=== PATIENT | male | born 1950 | race Caucasian/White ===

== ENCOUNTER → 2017-05-29 | Outpatient (CLI) | payer BC ==
--- NOTE | 2017-05-29 12:00 | P.STRESS ---
- Stress Test Note Stress Test Results/Findings: Exam Performed: NM stress cardiolite complete Exam Date: 05/29/17 Height: 5 ft 9 in Weight: 86.183 kg Protocol: KASIA Stage: 111 Duration of Exercise: 9.46 Resting Heart Rate: 58 Resting Blood Pressure: 167/102 Maximum Achieved Heart Rate: 142 Maximum Achieved Blood Pressure: 217/73 85% PMHR: 92 100% PMHR: 154 METS: 11.3 Technologist Comment: Stress Test Results/Findings: Baseline EKG, occasional PVCs with early repolarization changes. Patient exercised on Kasia protocol for 9 minutes 46 seconds, best was terminated secondary to fatigue, there was no chest pain. EKG monitoring revealed occasional PVCs there was no evidence of diagnostic ST segment changes. Cardiolite was injected at peak exercise. Impression: 1. Average exercise tolerance with occasional PVCs and normal EKG response to exercise. 2. Nuclear images will be reported separately.
--- NOTE | 2017-05-29 12:12 | NM ---
EXAMINATION TYPE: NM stress cardiolite complete DATE OF EXAM: 05/29/2017 COMPARISON: NONE HISTORY: I 20.9, angina pectoris TECHNIQUE: After the intravenous administration of 10.0 mCi Tc 99m Sestamibi - Rest images obtained 45 minutes post injection. The patient exercised using a KASIA protocol and 1 minute prior to peak exercise was injected with 26.7 mCi Tc 99m Sestamibi - Stress images obtained 15 minutes post injecti on. FINDINGS: Targeted heart rate was achieved during performance of the study. Review of stress and rest SPECT tony ges demonstrates no distinct perfusion abnormality. Gated analysis shows normal wall motion with an estimated left ventricular ejection fraction of 59 %. Some decreased uptake along the inferolateral left ventricle is greater on rest images than on stress images towards the base of the heart IMPRESSION: No scintigraphic evidence for reversible ischemia, additional findings above may be technical
== END ==
LOC: RADNMMAIN 07:48
PROVIDERS: ATTEND Family Medicine
DX: I20.9 Angina pectoris, unspecified (principal)
CPT/HCPCS: 93017; 78452; A9500

== ENCOUNTER → 2019-02-20 | Outpatient (CLI) | payer BC ==
--- NOTE | 2019-02-20 10:04 | XR ---
Abdomen HISTORY: Left-sided kidney stones, hematuria, calculus of kidney Frontal view the abdomen on 2 images correlated prior exam 09/30/2018. Multiple calcifications are noted in the paraspinal location on the left at approximately the L4-5 le ned which measure approximately 1 cm distally, 5 mm, and 7 mm proximally. Question calcification at t he level of the paraspinal level at approximately L2-3 level measuring approximately 16 to 17 mm. The re is overlying bowel gas which obscures detail. Suspect there is a calcific lesion overlying the low er pole the right kidney measuring 1 cm with a small adjacent calcification measuring approximately 3 mm.. Multiple calcifications are present in the pelvis similar to prior exam however there may be di stal ureteral calcifications, multiple calcifications are present along the expected course of the ur eter, oval calcification distally measures approximately 1 cm by 3 to 4 mm. 2 round calcifications ar e present in each measuring approximately 6 and 5 mm somewhat more proximally in the pelvis. Question able calcification superimposed over the left sacral ala. There are likely phleboliths within the pel vis. IMPRESSION: Bilateral nephrolithiasis suspected with left-sided multiple ureteral calcifications.
== END | disposition home or self-care (01) ==
LOC: RADXRMAIN 09:35
PROVIDERS: ATTEND Urology
DX: N20.0 Calculus of kidney (principal)
CPT/HCPCS: 74018

== ENCOUNTER → 2019-02-27 | Outpatient (CLI) | payer BC ==
[2019-02-27 14:30] LABS: Basophils # (A) 0.1 k/uL (0-0.2); Basophils % (A) 1 %; Eosinophils # (A) 0.2 k/uL (0-0.7); Eosinophils % (A) 4 %; HCT 46.3 % (39.0-53.0); HGB 14.9 gm/dL (13.0-17.5); Lymphocytes # (A) 1.5 k/uL (1.0-4.8); Lymphocytes % (A) 27 %; MCH 28.4 pg (25.0-35.0); MCHC 32.1 g/dL (31.0-37.0); MCV 88.6 fL (80.0-100.0); Mean Platelet Volume 8.9; Monocytes # (A) 0.4 k/uL (0-1.0); Monocytes % (A) 7 %; Neutrophils # (A) 3.2 k/uL (1.3-7.7); Neutrophils % (A) 58 %; Platelet Count 189 k/uL (150-450); RBC 5.23 m/uL (4.30-5.90); RDW 13.3 % (11.5-15.5); WBC 5.5 k/uL (3.8-10.6)
[2019-02-27 14:40] LABS: Anion Gap 6 mmol/L; Blood Urea Nitrogen 16 mg/dL (9-20); Calcium 9.2 mg/dL (8.4-10.2); Carbon Dioxide 30 mmol/L (22-30); Chloride 105 mmol/L (98-107); Glucose 108 mg/dL (74-99); Potassium 4.3 mmol/L (3.5-5.1); Sodium 141 mmol/L (137-145)
== END | disposition home or self-care (01) ==
LOC: LABPAT 13:07
PROVIDERS: ATTEND Urology
DX: Z01.818 Encounter for other preprocedural examination (principal); Z01.812 Encounter for preprocedural laboratory examination; N20.1 Calculus of ureter; R53.83 Other fatigue
CPT/HCPCS: 36415; 80048; 85025; 93005

== ENCOUNTER 2019-03-07 06:02 | Day surgery (SDC) | payer BC ==
[2019-03-06 08:40] VITALS: BMI 26.6
--- NOTE | 2019-03-06 12:39 | P.GSHP ---
History of Present Illness H&P Date: 02/28/19 Chief Complaint: Left flank pain The patient is a 68-year-old white male with a history of urolithiasis. He has recently experienced left flank and lower abdominal pain, associated with gross hematuria. A KUB x-ray suggests the presence of several left ureteral calculi. Specifically, there appears to be a 1 cm distal ureteral calculus, as well as 5 and 7 mm calculi within the proximal ureter. A questionable calcification is also seen at the level of L2-L3, measuring approximately 16 mm in size. - Constitutional Constitutional: Denies chills, Denies fever - Gastrointestinal Gastrointestinal: Denies nausea, Denies vomiting - Genitourinary (Female) Genitourinary: Reports flank pain, Reports hematuria, Reports kidney stones Past Medical History Additional Past Medical History / Comment(s): kidney stones History of Any Multi-Drug Resistant Organisms: None Reported Past Surgical History: Hernia Repair, Orthopedic Surgery Past Psychological History: No Psychological Hx Reported Smoking Status: Former smoker Past Alcohol Use History: Rare Past Drug Use History: None Reported Medications and Allergies Home Medications Medication Instructions Recorded Confirmed Type No Known Home Medications 03/06/19 03/06/19 History Allergies Allergy/AdvReac Type Severity Reaction Status Date / Time latex Allergy Rash/Hives Verified 03/06/19 08:16 meperidine [From Demerol] Allergy Nausea & Verified 03/06/19 08:16 Vomiting Surgical - Exam - General well developed, well nourished, no distress - Neck no masses, trachea midline - Respiratory normal respiratory effort, clear to auscultation - Cardiovascular Rhythm: regular Abnormal Heart Sounds: no systolic murmur, no diastolic murmur, no rub, no S3 Gallop, no S4 Gallop, no click, no other - Abdomen Abdomen: soft, non tender, no guarding, no rigid, no rebound - Genitourinary normal penis with no external lesions, testicles non-tender - Rectum Rectum: normal sphincter tone, no masses - Psychiatric oriented to time, oriented to person, oriented to place, speech is normal, memory intact Results - Imaging Abdominal x-ray: report reviewed, image reviewed Assessment and Plan (1) Calculus of ureter Status: Acute Code(s): N20.1 - CALCULUS OF URETER SNOMED Code(s): 35710792 Plan: Cystoscopy, left retrograde pyelogram, left ureteroscopy with Holmium laser lithotripsy and possible stone basketing. The procedure has been reviewed in detail with the patient. Potential risks include anesthesia, bleeding, infection, and ureteral injury. The patient is aware of the need for a ureteral stent following the procedure. He also understands the possible need for a secondary treatment.
[~2019-03-07 06:02] MED LIST: DEXAMETHASONE SOD PHOSPHATE 10 MG/ML 1 ML VIAL IV ONE; HYDROmorphone 0.5 MG/0.5 ML SYRINGE IVP PRN; LACTATED RINGERS 1,000 ML IV SCH; MIDAZOLAM 2 MG/2 ML VIAL IV PRN; ONDANSETRON 4 MG/2 ML VIAL IVP ONE; SCOPOLAMINE 1.5MG/72HR PATCH TRANSDERM ONE
--- NOTE | 2019-03-07 06:54 | XR ---
EXAMINATION TYPE: XR KUB DATE OF EXAM: 03/07/2019 6:47 AM CLINICAL HISTORY: Right-sided kidney stone. TECHNIQUE: Single supine KUB image of the abdomen is obtained. COMPARISON: Abdominal x-ray February 20, 2019. FINDINGS: There is persistent 10 mm calculus right kidney at L2 level. Previously visualized left mid ureter calculi have progressed distally now project over the sacrum.. Rounded density over the sacru m is stable in position medial to the ureter calculi. There are additional scattered pelvic phlebolit hs bilaterally inferior to this redemonstrated. Overall nonobstructive bowel gas pattern. Mild to moderate narrowing of both hip joints is redemonstr ated. IMPRESSION: Progression of mid left ureter calculi to distal ureter level. Stable 10 mm right renal c alculus.
[2019-03-07] MEDS ORDERED: MIDAZOLAM 2 MG/2 ML VIAL ONE (07:24)
[2019-03-07] MEDS ORDERED: GLYCOPYRROLATE 0.2 MG/ML 2 ML VIAL ONE (07:24)
[2019-03-07] MEDS ORDERED: ROCURONIUM BROMIDE 10 MG/ML 10 ML VIAL IV ONE (07:24)
[2019-03-07] MEDS ORDERED: ePHEDrine SULFATE/0.9% NACL/PF 50 MG/5 ML SYRINGE IV ONE (07:24)
[2019-03-07] MEDS ORDERED: LIDOCAINE 1% INJ 10MG/ML (20 ML MDV) ONE (07:24)
[2019-03-07] MEDS ORDERED: NEOSTIGMINE 1 MG/ML 10 ML VIAL ONE (07:24)
[2019-03-07] MEDS ORDERED: HYDROmorphone (PF) 1 MG/ML ONE (07:24)
[2019-03-07] MEDS ORDERED: fentaNYL (PF) 50 MCG/ML 2 ML AMP ONE (07:24)
[2019-03-07] MEDS ORDERED: PROPOFOL 10 MG/ML 20 ML VIAL IV ONE (07:24)
[2019-03-07] MEDS ORDERED: IOPAMIDOL-370 50ML BTL MISCELLANE ONE (08:07)
[2019-03-07] MEDS ORDERED: LACTATED RINGERS 1,000 ML IV ONE (08:11)
[2019-03-07 09:55] VITALS: TEMP 97.7
--- NOTE | 2019-03-07 10:02 | P.OP ---
Date of Procedure: 03/07/19 Preoperative Diagnosis: Left ureteral calculi Postoperative Diagnosis: Same Procedure(s) Performed: Cystoscopy, left ureteroscopy with Holmium laser lithotripsy, left ureteral stent insertion Anesthesia: AMYA Surgeon: Froilan Noland Estimated Blood Loss (ml): 0 IV fluids (ml): 850 Pathology: none sent Condition: stable Disposition: PACU Indications for Procedure: The patient is a 68-year-old white male with a history of urolithiasis. He has recently experienced left flank and lower abdominal pain, associated with gross hematuria. A KUB x-ray suggests the presence of several left ureteral calculi. Specifically, there appears to be a 1 cm distal ureteral calculus, as well as 5 and 7 mm calculi within the proximal ureter. A questionable calcification is also seen at the level of L2-L3, measuring approximately 16 mm in size. Operative Findings: Multiple large left ureteral calculi, all fragmented to completion. Description of Procedure: The patient was taken to the operating room and placed in the dorsolithotomy position, with legs supported in Stuart stirrups. The external genitalia was prepped and draped sterilely. The 30 lens was used to introduce the 22-L[place]ian Stortz cystoscopic sheath through the urethra and into the bladder under direct vision. The prostatic urethra showed evidence of mild lateral lobe enlargement, as well as a median lobe which partially obscures the trigone. The bladder was examined in its entirety. Both ureteral orifices were normal anatomic location and configuration, and clear urine effluxed from both. No tumors or foreign bodies were seen. The ACMI semirigid ureteroscope was advanced into the bladder, and the left ureteral orifice was cannulated. The ureteroscope was advanced approximately 2 cm, at which point a large calculus was identified. The 200 micron Holmium laser probe was passed through the ureteroscope, and lithotripsy was performed. The ureteroscope was slowly advanced, treating 3-4 large calculi within the mid and distal ureter utilizing a dusting technique. At this point, visualization was poor and therefore the procedure was terminated. A 0.035 inch Glidewire was passed through the ureteroscope and up to the left renal pelvis. A 26 cm, 4.5-Lithuanian double-J ureteral stent was placed over the wire. Proper stent positioning was verified fluoroscopically and endoscopically. The bladder was emptied and the cystoscope removed. The patient tolerated the procedure well and was taken to the recovery room in stable condition. CHRISTIAN ROCKJoleen Report: Procedure Acuity: Elective Stone Size and Location: Left mid and distal ureter, up to 1 cm. Ureteral Dilation: No Ureteral Access Sheath Used: No Stone Sent for Analysis: No All Stones/Fragments Were Removed with a Basket: No Complications: No Preoperative Antibiotics Given: Yes Stent Placed: Yes If Stent Placed, Was String Left Attached: No If Stent Placed, When is it to be Removed: 2 weeks Discharge Medications: [place]
[2019-03-07 10:18] VITALS: RESP 16
--- NOTE | 2019-03-07 11:12 | FL ---
EXAMINATION TYPE: FL guidance operating room DATE OF EXAM: 03/07/2019 HISTORY: Flouroscopy time 15 seconds of fluoroscopy provided. IMPRESSION: 1. Fluoroscopy time.
[2019-03-07 11:13] VITALS: BP 152/84; PULSE 77
== END 2019-03-07 11:35 | disposition home or self-care (01) ==
LOC: OR 06:02
PROVIDERS: ATTEND Urology
DX: N20.1 Calculus of ureter (principal); N40.0 Benign prostatic hyperplasia without lower urinary tract symptoms; Z87.442 Personal history of urinary calculi; Z87.891 Personal history of nicotine dependence; Z88.5 Allergy status to narcotic agent; Z91.040 Latex allergy status
CPT/HCPCS: 74018; 52356; C2625; C1769; J2250; J1100; J2710; J2405; J0690; J2001; J3010; J1170; J2704

== ENCOUNTER → 2019-05-27 | Outpatient (CLI) | payer BC ==
--- NOTE | 2019-05-27 11:57 | US ---
EXAMINATION TYPE: US kidneys/renal and bladder DATE OF EXAM: 05/27/2019 COMPARISON: None CLINICAL HISTORY: 69-year-old male R93.4 abnormal findings on diagnostic imaging of. Expense Analyst notes: Patient has hx of stones, lithotripsy in February on left. TECHNIQUE: Multiple sonographic images of the kidneys and bladder are obtained. FINDINGS: EXAM MEASUREMENTS: Right Kidney: 13.1 x 5.4 x 5.2 cm Left Kidney: 13.2 x 6.7 x 6.4 cm Right Kidney: Prominent in size without hydronephrosis. A mid to lower pole calculus is noted measuri ng 0.6 x 0.3 x 0.8 Left Kidney: Prominent size with cysts measuring up to 4.9 x 3.5 x 4.8 cm. There is at least moderate hydronephrosis. Bladder: wnl Bilateral Jets seen: Right seen, left not seen in 3 minutes Enlargement of the median lobe of the prostate gland impressing on the posterior bladder base. IMPRESSION: 1. Moderate left hydronephrosis. The left ureteral jet is not visualized. Unable to exclude ureteric obstruction. 2. Nonobstructive 8 mm right renal calculus. 3. Enlargement of the median lobe of the prostate gland with impression on the bladder base. Query an y signs/symptoms of BPH.
== END | disposition home or self-care (01) ==
LOC: RADUSWWP 06:52
PROVIDERS: ATTEND Urology
DX: N13.2 Hydronephrosis with renal and ureteral calculous obstruction (principal); N40.0 Benign prostatic hyperplasia without lower urinary tract symptoms
CPT/HCPCS: 76770

== ENCOUNTER 2019-10-14 14:57 | Inpatient (IN) | payer BC, MEDICARE ==
[2019-10-14] MEDS ORDERED: HYDROmorphone 1 MG/ML 1 ML SYRINGE IVP STA (15:21)
[2019-10-14] MEDS ORDERED: KETOROLAC 30 MG/ML 1 ML VIAL IVP STA (15:21)
[2019-10-14] MEDS ORDERED: SODIUM CHLORIDE 0.9% 1,000 ML IV STA ×2 (15:21)
[2019-10-14] MEDS ORDERED: ONDANSETRON 4 MG/2 ML VIAL IVP STA (15:21)
--- NOTE | 2019-10-14 15:48 | ED ---
Abdominal Pain HPI - General Source: patient, EMS, RN notes reviewed, old records reviewed Mode of arrival: EMS Limitations: no limitations <Barbara Roth - Last Filed: 10/14/19 17:39> <Mary Grace Arana - Last Filed: 10/19/19 14:36> - General Chief Complaint: Abdominal Pain Stated Complaint: kidney stone Time Seen by Provider: 10/14/19 15:12 - History of Present Illness Initial Comments: Patient is a 69-year-old male presents today with right sided flank pain, possibly an hour after he had his ureteral stent removed. He has removed by Dr. Stevens. Patient reports that he had the ureteral stent placed last Monday. He reports that after having a stent placed she did have some dysuria throughout that time. He's never had dysuria post stent placement before. He is reports he's had the stents placed on the left ureter the past. Patient states he's had no fevers or chills. He arrives via EMS with significant amount distress and discomfort. He complains of some nausea. (Barbara Roth) - Related Data Previous Rx's Medication Instructions Recorded Hydrocodone/Acetaminophen [[place] 1 - 2 each PO Q4HR PRN #6 tab 10/16/19 5-325] Allergies Allergy/AdvReac Type Severity Reaction Status Date / Time hydrocodone Allergy Nausea & Verified 10/16/19 13:11 Vomiting latex Allergy Rash/Hives Verified 10/16/19 13:11 meperidine [From Demerol] Allergy Nausea & Verified 10/16/19 13:11 Vomiting Review of Systems ROS Other: All systems not noted in ROS Statement are negative. <Barbara Roth - Last Filed: 10/14/19 17:39> ROS Other: All systems not noted in ROS Statement are negative. <Mary Grace Arana - Last Filed: 10/19/19 14:36> ROS Statement: Those systems with pertinent positive or pertinent negative responses have been documented in the HPI. Past Medical History Past Medical History: No Reported History Additional Past Medical History / Comment(s): kidney stones History of Any Multi-Drug Resistant Organisms: None Reported Past Surgical History: Hernia Repair, Orthopedic Surgery Additional Past Surgical History / Comment(s): kidney stones. Past Psychological History: No Psychological Hx Reported Smoking Status: Former smoker Past Alcohol Use History: Rare Past Drug Use History: None Reported <Barbara Roth - Last Filed: 10/14/19 17:39> General Exam Limitations: no limitations General appearance: alert, in no apparent distress Head exam: Present: atraumatic Eye exam: Present: normal appearance, PERRL, EOMI. Absent: scleral icterus, conjunctival injection, periorbital swelling ENT exam: Present: normal exam, mucous membranes moist Neck exam: Present: normal inspection. Absent: tenderness, meningismus, lymp hadenopathy Respiratory exam: Present: normal lung sounds bilaterally. Absent: respiratory distress, wheezes, rales, rhonchi, stridor Cardiovascular Exam: Present: regular rate, normal rhythm, normal heart sounds. Absent: systolic murmur, diastolic murmur, rubs, gallop, clicks GI/Abdominal exam: Present: soft, tenderness (Right-sided lower abdominal tenderness and right CVA tenderness.), normal bowel sounds. Absent: distended, guarding, rebound, rigid Extremities exam: Present: normal inspection, full ROM, normal capillary refill. Absent: tenderness, pedal edema, joint swelling, calf tenderness Back exam: Present: normal inspection Neurological exam: Present: alert, oriented X3, CN II-XII intact Psychiatric exam: Present: normal affect, normal mood Skin exam: Present: warm, dry, intact, normal color. Absent: rash <Barbara Roth - Last Filed: 10/14/19 17:39> - General Exam Comments Initial Comments: 61-year-old male. Alert and oriented 3. Moderate to severe discomfort, writhing in pain. (Barbara Roth) Course Vital Signs 10/14/19 10/14/19 10/14/19 15:03 16:15 17:30 Temperature 98.1 F Pulse Rate 72 74 62 Respiratory 22 18 18 Rate Blood Pressure 209/137 137/87 140/77 O2 Sat by Pulse 99 96 96 Oximetry Medical Decision Making - Lab Data Result diagrams: 10/14/19 15:40 10/14/19 15:40 - Radiology Data Radiology results: report reviewed <RosemarysamiBarbara - Last Filed: 10/14/19 17:39> - Lab Data Result diagrams: 10/14/19 15:40 10/15/19 11:16 <Mary Grace Arana - Last Filed: 10/19/19 14:36> - Medical Decision Making 69-year-old male presents today with right-sided abdominal pain one hour after having right ureteral stent removed by Dr. Stevens. He arrives via EMS in significant amount of discomfort. Patient is given IV fluids labwork obtained. He was given IV Toradol's Zofran and Dilaudid. On reevaluation his pain is significantly improved. Lab work was reviewed. Evidence of lactic acid elevation of 3.0. Urinalysis completed and shows rare bacteria as well as significant red blood cells. CT abdomen and pelvis was performed. There is evidence of moderate to severe right-sided hydronephrosis with concerns for all total 2-3 millimeter ureteral stones on right ureter. There is concerns or perinephric stranding related to infection. Patient was given 2 g of Rocephin at this time. I discussed the case with Dr. Castañeda discussed the case with Dr. Stevens. Recommended the Patient be given Flomax, remaining nothing by mouth and receiving IV antibiotic. Patient and patient's family are agreeable to treatment plan. (Barbara Roth) I was available for consultation in the emergency department. The history and physical exam were done by the midlevel provider. I was consulted for this patients care. I reviewed the case with the midlevel provider and based on their presentation of the patient, I agree with the assessment, medical decision making and plan of care as documented. I discussed the case with Dr. Noland who accepted admission of the patient. Chart was dictated using [employer] dictation software. Attempts were made to correct any dictation errors however some typographical errors may persist. (Mary Grace Arana) - Lab Data Lab Results 10/14/19 10/14/19 10/14/19 Range/Units 15:40 15:40 15:40 WBC 9.4 (3.8-10.6) k/uL RBC 5.33 (4.30-5.90) m/uL Hgb 15.7 (13.0-17.5) gm/dL Hct 46.4 (39.0-53.0) % MCV 87.1 (80.0-100.0) fL MCH 29.5 (25.0-35.0) pg MCHC 33.9 (31.0-37.0) g/dL RDW 12.7 (11.5-15.5) % Plt Count 232 (150-450) k/uL Neutrophils % 78 % Lymphocytes % 13 % Monocytes % 5 % Eosinophils % 2 % Basophils % 1 % Neutrophils # 7.3 (1.3-7.7) k/uL Lymphocytes # 1.2 (1.0-4.8) k/uL Monocytes # 0.5 (0-1.0) k/uL Eosinophils # 0.1 (0-0.7) k/uL Basophils # 0.1 (0-0.2) k/uL Sodium 140 (137-145) mmol/L Potassium 4.0 (3.5-5.1) mmol/L Chloride 107 (98-107) mmol/L Carbon Dioxide 19 L (22-30) mmol/L Anion Gap 14 mmol/L BUN 18 (9-20) mg/dL Creatinine 1.40 H (0.66-1.25) mg/dL Est GFR (CKD-EPI)AfAm 60 (>60 ml/min/1.73 sqM) Est GFR (CKD-EPI)NonAf 51 (>60 ml/min/1.73 sqM) Glucose 99 (74-99) mg/dL Lactic Ac Sepsis Rflx Plasma Lactic Acid Vipul 3.0 H* (0.7-2.0) mmol/L Calcium 9.1 (8.4-10.2) mg/dL Total Bilirubin 1.1 (0.2-1.3) mg/dL AST 24 (17-59) U/L ALT 24 (21-72) U/L Alkaline Phosphatase 99 (38-126) U/L Total Protein 7.1 (6.3-8.2) g/dL Albumin 4.2 (3.5-5.0) g/dL Amylase 66 (30-110) U/L Lipase 196 (23-300) U/L Urine Color Urine Appearance (Clear) Urine pH (5.0-8.0) Ur Specific [place] (1.001-1.035) Urine Protein (Negative) Urine Glucose (UA) (Negative) Urine Ketones (Negative) Urine Blood (Negative) Urine Nitrite (Negative) Urine Bilirubin (Negative) Urine Urobilinogen (<2.0) mg/dL Ur Leukocyte Esterase (Negative) Urine RBC (0-5) /hpf Urine WBC (0-5) /hpf Ur Squamous Epith Cells (0-4) /hpf Urine Bacteria (None) /hpf Urine Mucus (None) /hpf 10/14/19 10/14/19 Range/Units 16:07 16:42 WBC (3.8-10.6) k/uL RBC (4.30-5.90) m/uL Hgb (13.0-17.5) gm/dL Hct (39.0-53.0) % MCV (80.0-100.0) fL MCH (25.0-35.0) pg MCHC (31.0-37.0) g/dL RDW (11.5-15.5) % Plt Count (150-450) k/uL Neutrophils % % Lymphocytes % % Monocytes % % Eosinophils % % Basophils % % Neutrophils # (1.3-7.7) k/uL Lymphocytes # (1.0-4.8) k/uL Monocytes # (0-1.0) k/uL Eosinophils # (0-0.7) k/uL Basophils # (0-0.2) k/uL Sodium (137-145) mmol/L Potassium (3.5-5.1) mmol/L Chloride (98-107) mmol/L Carbon Dioxide (22-30) mmol/L Anion Gap mmol/L BUN (9-20) mg/dL Creatinine (0.66-1.25) mg/dL Est GFR (CKD-EPI)AfAm (>60 ml/min/1.73 sqM) Est GFR (CKD-EPI)NonAf (>60 ml/min/1.73 sqM) Glucose (74-99) mg/dL Lactic Ac Sepsis Rflx Y Plasma Lactic Acid Vipul (0.7-2.0) mmol/L Calcium (8.4-10.2) mg/dL Total Bilirubin (0.2-1.3) mg/dL AST (17-59) U/L ALT (21-72) U/L Alkaline Phosphatase (38-126) U/L Total Protein (6.3-8.2) g/dL Albumin (3.5-5.0) g/dL Amylase (30-110) U/L Lipase (23-300) U/L Urine Color Red Urine Appearance Cloudy (Clear) Urine pH 6.0 (5.0-8.0) Ur Specific [place] 1.011 (1.001-1.035) Urine Protein 2+ H (Negative) Urine Glucose (UA) Negative (Negative) Urine Ketones 1+ H (Negative) Urine Blood Large H (Negative) Urine Nitrite Negative (Negative) Urine Bilirubin Negative (Negative) Urine Urobilinogen <2.0 (<2.0) mg/dL Ur Leukocyte Esterase Small H (Negative) Urine RBC >182 H (0-5) /hpf Urine WBC 29 H (0-5) /hpf Ur Squamous Epith Cells <1 (0-4) /hpf Urine Bacteria Rare H (None) /hpf Urine Mucus Rare H (None) /hpf - Radiology Data KUB shows right renal calculus. Distal left ureter colliculi no longer seen. Persistent distention of bowel the left upper quadrant. CT shows bilateral hydronephrosis moderate to severe. On the right there is perinephric fluid or stranding on the renal edema. Underlying infection is not excluded. Several right ureteral colliculi noted. Left-sided hydronephrosis appears to be chronic in nature as there is renal parenchymal thinning. One or 22 mm colliculi noted in the mid left ureter. (Barbara Roth) Disposition Is patient prescribed a controlled substance at d/c from ED?: No Time of Disposition: 17:43 <Barbara Roth - Last Filed: 10/14/19 17:39> <Mary Grace Arana - Last Filed: 10/19/19 14:36> Clinical Impression: Hydronephrosis, Right ureteral stone, Post op infection Disposition: ADMITTED IP TO THIS HOSP Condition: Fair
[2019-10-14 15:58] LABS: Basophils # (A) 0.1 k/uL (0-0.2); Basophils % (A) 1 %; Eosinophils # (A) 0.1 k/uL (0-0.7); Eosinophils % (A) 2 %; HCT 46.4 % (39.0-53.0); HGB 15.7 gm/dL (13.0-17.5); Lymphocytes # (A) 1.2 k/uL (1.0-4.8); Lymphocytes % (A) 13 %; MCH 29.5 pg (25.0-35.0); MCHC 33.9 g/dL (31.0-37.0); MCV 87.1 fL (80.0-100.0); Mean Platelet Volume 9.3; Monocytes # (A) 0.5 k/uL (0-1.0); Monocytes % (A) 5 %; Neutrophils # (A) 7.3 k/uL (1.3-7.7); Neutrophils % (A) 78 %; Platelet Count 232 k/uL (150-450); RBC 5.33 m/uL (4.30-5.90); RDW 12.7 % (11.5-15.5); WBC 9.4 k/uL (3.8-10.6)
--- NOTE | 2019-10-14 16:02 | XR ---
KUB HISTORY: Right flank pain Frontal KUB and 2 images correlated to prior exam dated 03/07/2019 The right-sided renal calculus seen on prior exam is no longer seen. Multiple calcifications in the p keri are felt likely to represent phleboliths. Distal left ureteral calculi seen on prior KUB. No lo nger seen. Lung bases are clear. No evident pneumoperitoneum, distended loop of small bowel in left u pper quadrant is again noted. IMPRESSION: Right renal calculus, distal left ureteral calculi no longer seen. Persistent distention of bowel left upper quadrant.
[2019-10-14 16:04] LABS: Albumin 4.2 g/dL (3.5-5.0); Calcium 9.1 mg/dL (8.4-10.2); Total Bilirubin 1.1 mg/dL (0.2-1.3); Total Protein 7.1 g/dL (6.3-8.2)
--- NOTE | 2019-10-14 16:23 | CT ---
EXAMINATION TYPE: CT abdomen pelvis wo con DATE OF EXAM: 10/14/2019 COMPARISON: 10/07/2013 HISTORY: right flank pain post ureteral stent removal CT DLP: 588.3 mGycm Examination of the solid and hollow viscera is limited given the lack of contrast. FINDINGS: LUNG BASES: No evidence for nodule. No evidence for infiltrate. LIVER/GB: The gallbladder is unremarkable. No space-occupying hepatic lesion. Renal cystic changes. PANCREAS: No pancreatic mass identified. No inflammatory process seen. SPLEEN: No evidence for splenomegaly. No intrasplenic lesions seen. ADRENALS: No adrenal nodules identified. No evidence for thickening. KIDNEYS: Small 2 mm calculi right UVJ totaling approximately 2 or 3 in number. Additional 3 mm calcul us proximal right ureter. Moderate to severe right-sided hydronephrosis. Additional small calculi not ed within the right renal collecting system. There is a perinephric stranding with small amount of pe rinephric fluid noted. Renal edema noted. Underlying infection not excluded. Moderate to severe left- sided hydronephrosis without definite obstructing calculus. There are 1 or 2 tiny calculi within the mid left ureter measuring 2 mm each. BOWEL: Appendix has a normal appearance. No evidence of bowel obstruction. No inflammatory process. Lymph nodes: No evidence for adenopathy greater than 1 cm. Abdominal aorta: Atheromatous changes seen. No evidence for aneurysm. Genital organs: Enlarged prostate noted. Other: No significant abnormality. IMPRESSION: 1. bilateral hydronephrosis moderate to severe. On the right there is perinephric fluid and stranding with renal edema. Underlying infection is not excluded. Several right ureteral calculi noted as disc ussed above. 2. Left-sided hydronephrosis appears to be more chronic in nature as there appears to be a renal pare nchymal thinning. One or 2, 2 mm calculi noted mid left ureter.
[2019-10-14] MEDS ORDERED: cefTRIAXone IN SWFI 1,000 MG/10 ML SYRINGE IVP STA (16:32)
[2019-10-14] MEDS ORDERED: SODIUM CHLORIDE 0.9% 1,000 ML IV ONE (16:38)
[2019-10-14 16:58] LABS: Appearance,Urine Cloudy (Clear); Bacteria,Urine Rare /hpf; Bilirubin,Urine Negative (Negative); Blood,Urine Large (Negative); Color,Urine Red; Glucose,Urine (UA) Negative (Negative); Ketones,Urine 1+ (Negative); Leukocyte Esterase,Urine Small (Negative); Mucus,Urine Rare /hpf; Nitrite,Urine Negative (Negative); Protein,Urine 2+ (Negative); RBC,Urine >182 /hpf (0-5); Specific Gravity,Urine 1.011 (1.001-1.035); Squamous Epithelial Cell,Urine <1 /hpf (0-4); Urobilinogen,Urine <2.0 mg/dL (<2.0)
[2019-10-14] MEDS ORDERED: TAMSULOSIN 0.4 MG CAP.ER.24H PO STA (17:40)
[2019-10-14] MEDS ORDERED: HYDROmorphone 1 MG/ML 1 ML SYRINGE IVP PRN (17:43)
[2019-10-14] MEDS ORDERED: ONDANSETRON 4 MG/2 ML VIAL IVP PRN (17:43)
[2019-10-14] MEDS ORDERED: ACETAMINOPHEN TAB 325 MG TAB PO PRN (17:43)
[2019-10-14] MEDS ORDERED: KETOROLAC 30 MG/ML 1 ML VIAL IVP PRN (17:43)
[2019-10-14] MEDS ORDERED: NALOXONE 0.4 MG/ML 1 ML VIAL IV PRN (17:43)
[2019-10-14] MEDS ORDERED: IBUPROFEN 400 MG TAB PO PRN (17:43)
[2019-10-14] MEDS: SODIUM CHLORIDE 0.9% 1,000 ML IV SCH (19:40)
[2019-10-14 20:31] VITALS: RESP 16
[2019-10-15] MEDS: SODIUM CHLORIDE 0.9% 1,000 ML IV SCH (05:36)
[2019-10-15] MEDS: IBUPROFEN 600 MG TAB PO PRN ×2 (08:08→16:43)
[2019-10-15] MEDS ORDERED: SODIUM CHLORIDE 0.9% 1,000 ML IV SCH (08:15)
[2019-10-15] MEDS ORDERED: PANTOPRAZOLE 40 MG/10 ML VIAL IV SCH (09:00)
[2019-10-15 11:59] LABS: Calcium 8.4 mg/dL (8.4-10.2); Potassium 4.1 mmol/L (3.5-5.1)
[2019-10-15 12:27] VITALS: BP 153/78; PULSE 53; TEMP 96.7
[2019-10-16] MEDS ORDERED: PANTOPRAZOLE 40 MG TABLET PO SCH (07:30)
--- NOTE | 2019-10-16 11:18 | P.GSHP ---
History of Present Illness H&P Date: 10/15/19 Chief Complaint: Right flank pain The patient is a 69-year-old white male with a history of recurrent urolithiasis. He underwent right ureteroscopy with Holmium laser lithotripsy on 07/09/2019 to treat a 1 cm right renal calculus. The procedure was without complication, but the patient presented to the office on 10/14/2019 with right flank pain radiating to the right lower abdomen, which increased with micturition. He also reported gross hematuria. His stent was removed, but he experienced severe pain following this and presented to the emergency room. A computed tomography scan showed a small amount of right perinephric fluid, as well as edema. There was also evidence of right hydronephrosis. He was admitted and treated with IV hydration and parenteral analgesics. This morning, he states that his pain is much improved. - Constitutional Constitutional: Denies chills, Denies fever - Gastrointestinal Gastrointestinal: Reports nausea, Denies vomiting - Genitourinary (Female) Genitourinary: Reports flank pain, Reports kidney stones Past Medical History Past Medical History: No Reported History Additional Past Medical History / Comment(s): kidney stones History of Any Multi-Drug Resistant Organisms: None Reported Past Surgical History: Hernia Repair, Orthopedic Surgery Additional Past Surgical History / Comment(s): knee surgery, multiple Ureteral stent placement Past Anesthesia/Blood Transfusion Reactions: No Reported Reaction Past Psychological History: No Psychological Hx Reported Smoking Status: Former smoker Past Alcohol Use History: Rare Past Drug Use History: None Reported - Past Family History Father Family Medical History: Cancer Additional Family Medical History / Comment(s): from melanoma Mother Family Medical History: Cancer Additional Family Medical History / Comment(s): from colon cancer Medications and Allergies Home Medications Medication Instructions Recorded Confirmed Type No Known Home Medications 10/14/19 10/14/19 History Allergies Allergy/AdvReac Type Severity Reaction Status Date / Time acetaminophen [From [place]] Allergy Unknown Verified 10/14/19 17:57 hydrocodone [From [place]] Allergy Unknown Verified 10/14/19 17:57 latex Allergy Rash/Hives Verified 10/14/19 17:57 meperidine [From Demerol] Allergy Nausea & Verified 10/14/19 17:57 Vomiting Surgical - Exam Vital Signs Temp Pulse Resp BP Pulse Ox 98.1 F 72 22 209/137 99 10/14/19 15:03 10/14/19 15:03 10/14/19 15:03 10/14/19 15:03 10/14/19 15:03 - General well developed, well nourished, no distress - Respiratory normal respiratory effort - Abdomen Abdomen: soft, non tender, no guarding, no rigid, no rebound - Psychiatric oriented to time, oriented to person, oriented to place, speech is normal, memory intact Results - Labs 10/14/19 15:40 10/15/19 11:16 Abnormal Lab Results - Last 24 Hours (Table) 10/14/19 10/14/19 10/14/19 Range/Units 15:40 15:40 16:42 Carbon Dioxide 19 L (22-30) mmol/L Creatinine 1.40 H (0.66-1.25) mg/dL Plasma Lactic Acid Vipul 3.0 H* (0.7-2.0) mmol/L Urine Protein 2+ H (Negative) Urine Ketones 1+ H (Negative) Urine Blood Large H (Negative) Ur Leukocyte Esterase Small H (Negative) Urine RBC >182 H (0-5) /hpf Urine WBC 29 H (0-5) /hpf Urine Bacteria Rare H (None) /hpf Urine Mucus Rare H (None) /hpf Microbiology - Last 24 Hours (Table) 10/14/19 16:42 Urine Culture - Preliminary Urine,Voided Diabetes panel 10/14/19 Range/Units 15:40 Sodium 140 (137-145) mmol/L Potassium 4.0 (3.5-5.1) mmol/L Chloride 107 (98-107) mmol/L Carbon Dioxide 19 L (22-30) mmol/L BUN 18 (9-20) mg/dL Creatinine 1.40 H (0.66-1.25) mg/dL Glucose 99 (74-99) mg/dL Calcium 9.1 (8.4-10.2) mg/dL AST 24 (17-59) U/L ALT 24 (21-72) U/L Alkaline Phosphatase 99 (38-126) U/L Total Protein 7.1 (6.3-8.2) g/dL Albumin 4.2 (3.5-5.0) g/dL Calcium panel 10/14/19 Range/Units 15:40 Calcium 9.1 (8.4-10.2) mg/dL Albumin 4.2 (3.5-5.0) g/dL Pituitary panel 10/14/19 Range/Units 15:40 Sodium 140 (137-145) mmol/L Potassium 4.0 (3.5-5.1) mmol/L Chloride 107 (98-107) mmol/L Carbon Dioxide 19 L (22-30) mmol/L BUN 18 (9-20) mg/dL Creatinine 1.40 H (0.66-1.25) mg/dL Glucose 99 (74-99) mg/dL Calcium 9.1 (8.4-10.2) mg/dL Adrenal panel 10/14/19 Range/Units 15:40 Sodium 140 (137-145) mmol/L Potassium 4.0 (3.5-5.1) mmol/L Chloride 107 (98-107) mmol/L Carbon Dioxide 19 L (22-30) mmol/L BUN 18 (9-20) mg/dL Creatinine 1.40 H (0.66-1.25) mg/dL Glucose 99 (74-99) mg/dL Calcium 9.1 (8.4-10.2) mg/dL Total Bilirubin 1.1 (0.2-1.3) mg/dL AST 24 (17-59) U/L ALT 24 (21-72) U/L Alkaline Phosphatase 99 (38-126) U/L Total Protein 7.1 (6.3-8.2) g/dL Albumin 4.2 (3.5-5.0) g/dL - Imaging CT scan - abdomen: report reviewed, image reviewed Assessment and Plan (1) Hydronephrosis Status: Acute Code(s): N13.30 - UNSPECIFIED HYDRONEPHROSIS SNOMED Code(s): 85180978 Plan: Continue hydration and analgesics as needed. If his pain can be controlled with oral analgesics, he will be discharged home. However, if his pain persists he may require stent replacement.
--- NOTE | 2019-10-16 11:20 | P.DS ---
Providers Date of admission: 10/14/19 17:35 Expected date of discharge: 10/15/19 Attending physician: Froilan Noland Primary care physician: Leonid Carrizales - Discharge Diagnosis(es) (1) Hydronephrosis Status: Acute Hospital Course: Upon admission, the patient was treated with IV hydration and parenteral analgesics. His pain improved and he was essentially pain free at the time of discharge. Procedures: None Patient Condition at Discharge: Fair Plan - Discharge Summary Discharge Rx Participant: No New Discharge Prescriptions: No Action No Known Home Medications Discharge Medication List No Known Home Medications 10/14/19 [History] Follow up Appointment(s)/Referral(s): Froilan Noland MD [Family Provider] - 10/22/19 Leonid Carrizales MD [Primary Care Provider] - 1-2 days Patient Instructions/Handouts: Hydronephrosis (DC), Ureteral Stones (DC) Activity/Diet/Wound Care/Special Instructions: Diet and activity as tolerated. Discharge Disposition: HOME SELF-CARE
== END 2019-10-15 19:40 | disposition home or self-care (01) | DRG 694 ==
LOC: EC 14:57 → 3NMEDONC 17:35
PROVIDERS: ADMIT Urology; ATTEND Urology
DX: N13.30 Unspecified hydronephrosis (principal); R31.0 Gross hematuria; Z87.442 Personal history of urinary calculi; Z87.891 Personal history of nicotine dependence; Z88.5 Allergy status to narcotic agent; Z88.6 Allergy status to analgesic agent; Z91.040 Latex allergy status; Z80.0 Family history of malignant neoplasm of digestive organs; Z80.8 Family history of malignant neoplasm of other organs or systems
CPT/HCPCS: 36415; 74018; 74176; 80048; 80053; 81001; 82150; 83605; 83690; 85025; 87040; 87086; 96361; 96365; 96375; 99285

== ENCOUNTER 2019-10-16 10:19 | Emergency (ER) | payer BC, MEDICARE ==
[2019-10-16] MEDS ORDERED: SODIUM CHLORIDE 0.9% 1,000 ML IV STA ×2 (10:34)
[2019-10-16] MEDS ORDERED: HYDROmorphone 1 MG/ML 1 ML SYRINGE IVP STA (10:34)
[2019-10-16] MEDS ORDERED: ONDANSETRON 4 MG/2 ML VIAL IVP STA (10:34)
[2019-10-16] MEDS ORDERED: KETOROLAC 30 MG/ML 1 ML VIAL IVP STA (10:34)
--- NOTE | 2019-10-16 10:40 | ED ---
Abdominal Pain HPI - General Chief Complaint: Abdominal Pain Stated Complaint: rt sided abd pain Time Seen by Provider: 10/16/19 10:27 Source: patient, RN notes reviewed, old records reviewed Limitations: no limitations - History of Present Illness Initial Comments: Patient is a 69-year-old male presents emergency department today with worsening right-sided flank and abdominal pain. Patient was admitted to the hospital for recurrent kidney stones after ureteral stent removal. He was scheduled for a cystoscopy today out patiently after he was discharged yesterday evening. He reports that he was doing well during his hospital stay, and reported worsening pain this or day after his first urination around 6 AM. Patient reports she's taken Excedrin at home for pain. Patient's urologist is Dr. Stevens. He was at [facility] to wait for surgery but was in too much pain and he felt Patient should be evaluated emergency room. Patient denies any fevers or chills. Denies any nausea or vomiting. He reports that this is the same pain he had upon entering the emergency room 2 days ago. - Related Data Home Medications Medication Instructions Recorded Confirmed No Known Home Medications 10/14/19 10/14/19 Allergies Allergy/AdvReac Type Severity Reaction Status Date / Time acetaminophen [From [place]] Allergy Unknown Verified 10/14/19 17:57 hydrocodone [From [place]] Allergy Unknown Verified 10/14/19 17:57 latex Allergy Rash/Hives Verified 10/14/19 17:57 meperidine [From [place]erol] Allergy Nausea & Verified 10/14/19 17:57 Vomiting Review of Systems ROS Statement: Those systems with pertinent positive or pertinent negative responses have been documented in the HPI. ROS Other: All systems not noted in ROS Statement are negative. Past Medical History Past Medical History: No Reported History Additional Past Medical History / Comment(s): kidney stones History of Any Multi-Drug Resistant Organisms: None Reported Past Surgical History: Hernia Repair, Orthopedic Surgery Additional Past Surgical History / Comment(s): knee surgery, multiple Ureteral stent placement Past Anesthesia/Blood Transfusion Reactions: No Reported Reaction Past Psychological History: No Psychological Hx Reported Smoking Status: Former smoker Past Alcohol Use History: Rare Past Drug Use History: None Reported - Past Family History Father Family Medical History: Cancer Additional Family Medical History / Comment(s): from melanoma Mother Family Medical History: Cancer Additional Family Medical History / Comment(s): from colon cancer General Exam - General Exam Comments Initial Comments: 69-year-old male. Alert and oriented. Patient appears in moderate discomfort. Limitations: no limitations General appearance: alert, in no apparent distress Head exam: Present: atraumatic, normocephalic, normal inspection Eye exam: Present: normal appearance, PERRL, EOMI. Absent: scleral icterus, conjunctival injection, periorbital swelling ENT exam: Present: normal exam Neck exam: Present: normal inspection. Absent: tenderness, meningismus, lymphadenopathy Respiratory exam: Present: normal lung sounds bilaterally Cardiovascular Exam: Present: regular rate, normal rhythm, normal heart sounds. Absent: systolic murmur, diastolic murmur, rubs, gallop, clicks GI/Abdominal exam: Present: soft, tenderness (right abdominal tenderness), normal bowel sounds. Absent: distended, guarding, rebound, rigid Extremities exam: Present: normal inspection, full ROM, normal capillary refill. Absent: tenderness, pedal edema, joint swelling, calf tenderness Back exam: Present: normal inspection Neurological exam: Present: alert, oriented X3, CN II-XII intact Psychiatric exam: Present: normal affect, normal mood Skin exam: Present: warm, dry, intact, normal color. Absent: rash Course Vital Signs 10/16/19 10/16/19 10/16/19 10:22 10:26 10:37 Temperature 97.8 F Pulse Rate 64 Respiratory 18 20 Rate Blood Pressure 220/107 O2 Sat by Pulse 100 100 Oximetry 10/16/19 10/16/19 10/16/19 11:00 11:30 12:00 Temperature Pulse Rate Respiratory Rate Blood Pressure 215/120 208/118 147/87 O2 Sat by Pulse 99 89 L Oximetry - Reevaluation(s) Reevaluation #1: 10/16/19 12:25 she was reevaluated rest comfortably bed. Pain-free. Medical Decision Making - Medical Decision Making 69-year-old male presents emergency department today from outpatient rehab area for increased pain from right sided kidney stones. He is scheduled for cystoscopy today 1:30. Patient had IV fluids pain medication and laboratory obtained. Laboratory was reviewed relatively unremarkable. Urinalysis is pending at this time. Discussed the case with Dr. Burt schwartz and discussed case with Dr. Gan's. Patient is stable for discharge from the emergency department and will be going directly to preop area. All questions were answer ed. Discussed case with preoperative Patient will leave with the IV site in. - Lab Data Result diagrams: 10/16/19 10:40 10/16/19 10:40 Lab Results 10/16/19 10/16/19 10/16/19 Range/Units 10:40 10:40 10:40 WBC 8.3 (3.8-10.6) k/uL RBC 4.91 (4.30-5.90) m/uL Hgb 14.7 (13.0-17.5) gm/dL Hct 43.0 (39.0-53.0) % MCV 87.6 (80.0-100.0) fL MCH 29.9 (25.0-35.0) pg MCHC 34.1 (31.0-37.0) g/dL RDW 12.5 (11.5-15.5) % Plt Count 225 (150-450) k/uL Neutrophils % 81 % Lymphocytes % 11 % Monocytes % 5 % Eosinophils % 1 % Basophils % 1 % Neutrophils # 6.7 (1.3-7.7) k/uL Lymphocytes # 0.9 L (1.0-4.8) k/uL Monocytes # 0.5 (0-1.0) k/uL Eosinophils # 0.1 (0-0.7) k/uL Basophils # 0.1 (0-0.2) k/uL PT (9.0-12.0) sec INR (<1.2) APTT (22.0-30.0) sec VBG pH 7.45 H (7.31-7.41) VBG pCO2 33 L (37-51) mmHg VBG HCO3 22 L (24-28) mmol/L Sodium 143 (137-145) mmol/L Potassium 4.2 (3.5-5.1) mmol/L Chloride 110 H (98-107) mmol/L Carbon Dioxide 21 L (22-30) mmol/L Anion Gap 12 mmol/L BUN 18 (9-20) mg/dL Creatinine 1.57 H (0.66-1.25) mg/dL Est GFR (CKD-EPI)AfAm 52 (>60 ml/min/1.73 sqM) Est GFR (CKD-EPI)NonAf 45 (>60 ml/min/1.73 sqM) Glucose 112 H (74-99) mg/dL Plasma Lactic Acid Vipul (0.7-2.0) mmol/L Calcium 9.5 (8.4-10.2) mg/dL Total Bilirubin 1.0 (0.2-1.3) mg/dL AST 28 (17-59) U/L ALT 25 (21-72) U/L Alkaline Phosphatase 90 (38-126) U/L Total Protein 6.9 (6.3-8.2) g/dL Albumin 4.0 (3.5-5.0) g/dL Amylase 73 (30-110) U/L Lipase 156 (23-300) U/L 10/16/19 10/16/19 Range/Units 10:40 10:40 WBC (3.8-10.6) k/uL RBC (4.30-5.90) m/uL Hgb (13.0-17.5) gm/dL Hct (39.0-53.0) % MCV (80.0-100.0) fL MCH (25.0-35.0) pg MCHC (31.0-37.0) g/dL RDW (11.5-15.5) % Plt Count (150-450) k/uL Neutrophils % % Lymphocytes % % Monocytes % % Eosinophils % % Basophils % % Neutrophils # (1.3-7.7) k/uL Lymphocytes # (1.0-4.8) k/uL Monocytes # (0-1.0) k/uL Eosinophils # (0-0.7) k/uL Basophils # (0-0.2) k/uL PT 9.9 (9.0-12.0) sec INR 0.9 (<1.2) APTT 23.3 (22.0-30.0) sec VBG pH (7.31-7.41) VBG pCO2 (37-51) mmHg VBG HCO3 (24-28) mmol/L Sodium (137-145) mmol/L Potassium (3.5-5.1) mmol/L Chloride (98-107) mmol/L Carbon Dioxide (22-30) mmol/L Anion Gap mmol/L BUN (9-20) mg/dL Creatinine (0.66-1.25) mg/dL Est GFR (CKD-EPI)AfAm (>60 ml/min/1.73 sqM) Est GFR (CKD-EPI)NonAf (>60 ml/min/1.73 sqM) Glucose (74-99) mg/dL Plasma Lactic Acid Vipul 2.6 H* (0.7-2.0) mmol/L Calcium (8.4-10.2) mg/dL Total Bilirubin (0.2-1.3) mg/dL AST (17-59) U/L ALT (21-72) U/L Alkaline Phosphatase (38-126) U/L Total Protein (6.3-8.2) g/dL Albumin (3.5-5.0) g/dL Amylase (30-110) U/L Lipase (23-300) U/L 10/16/19 10:56 EKG performed at 1048 shows sinus rhythm with sinus arrhythmia and frequent PVCs. Prolonged QT noted. Ventricular rate of 64 bpm. Intervals 140 ms. QS duration is 84 mg seconds. QT QTc is 480/495 ms. - Radiology Data Radiology results: report reviewed Chest x-ray is negative for any acute cardio primary process. Scattered gas is seen in the nondistended stomach and small bowel O's. Gases seen in nondistended colon. Large prostate gland of the pubic symphysis is retention. Adjacent phlebolith is again seen. Small lower pole right renal colliculi CD less well seen on x-ray. Lung bases remain clear. No pneumoperitoneum. Osse ous structures demonstrate moderate narrowing of the hip joints. Disposition Clinical Impression: Right ureteral stone, Hydronephrosis Disposition: HOME SELF-CARE Condition: Stable Additional Instructions: Patient is to go directly to pre-op area for cystoscopy. Is patient prescribed a controlled substance at d/c from ED?: No Referrals: Leonid Carrizales MD [Primary Care Provider] - 1-2 days Time of Disposition: 12:26
[2019-10-16 11:03] LABS: Basophils # (A) 0.1 k/uL (0-0.2); Basophils % (A) 1 %; Eosinophils # (A) 0.1 k/uL (0-0.7); Eosinophils % (A) 1 %; HGB 14.7 gm/dL (13.0-17.5); Lymphocytes # (A) 0.9 k/uL (1.0-4.8); Lymphocytes % (A) 11 %; MCH 29.9 pg (25.0-35.0); MCHC 34.1 g/dL (31.0-37.0); MCV 87.6 fL (80.0-100.0); Mean Platelet Volume 9.2; Monocytes # (A) 0.5 k/uL (0-1.0); Monocytes % (A) 5 %; Neutrophils # (A) 6.7 k/uL (1.3-7.7); Neutrophils % (A) 81 %; Platelet Count 225 k/uL (150-450); RBC 4.91 m/uL (4.30-5.90); RDW 12.5 % (11.5-15.5); WBC 8.3 k/uL (3.8-10.6)
[2019-10-16 11:12] LABS: VBG PH 7.45 (7.31-7.41)
[2019-10-16 11:16] LABS: INR 0.9 (<1.2); Partial Thromboplastin Time 23.3 sec (22.0-30.0); Prothrombin Time 9.9 sec (9.0-12.0)
--- NOTE | 2019-10-16 11:19 | XR ---
EXAMINATION TYPE: XR chest 2V DATE OF EXAM: 10/16/2019 COMPARISON: NONE HISTORY: Presurgical study. TECHNIQUE: Frontal and lateral views of the chest are obtained. FINDINGS: There is some chronic parenchymal change without suspicious focal air space opacity, pleur al effusion, or pneumothorax seen. The cardiac silhouette size is upper limits of normal. The osse ous structures are intact. IMPRESSION: No acute cardiopulmonary process.
[2019-10-16 11:22] LABS: Calcium 9.5 mg/dL (8.4-10.2); Potassium 4.2 mmol/L (3.5-5.1); Total Protein 6.9 g/dL (6.3-8.2)
--- NOTE | 2019-10-16 11:25 | XR ---
EXAMINATION TYPE: XR KUB DATE OF EXAM: 10/16/2019 11:12 AM CLINICAL HISTORY: History of stent removed 2 days ago with dysuria. TECHNIQUE: Two Upright KUB images of the abdomen are obtained. COMPARISON: Abdominal x-ray and CT from 2 days ago.. FINDINGS: Scattered gas is seen in non-distended stomach and small bowel loops. Gas is seen in non-di stended colon. Enlarged prostate gland above pubic symphysis redemonstrated. Adjacent pelvic phleboli th again seen. Small lower pole right renal calculi and CT less well-seen on x-ray. Lung bases remain clear. No pneumoperitoneum. Osseous structures demonstrate moderate narrowing of both hip joints. IMPRESSION: As above.
[2019-10-16] MEDS ORDERED: SODIUM CHLORIDE 0.9% 1,000 ML IV ONE (11:43)
[2019-10-16 12:07] VITALS: RESP 20
[2019-10-16 12:29] LABS: Amorphous Sediment,Urine Rare /hpf; Appearance,Urine Cloudy (Clear); Bacteria,Urine Rare /hpf; Bilirubin,Urine Negative (Negative); Blood,Urine Large (Negative); Color,Urine Light Red; Glucose,Urine (UA) Negative (Negative); Ketones,Urine Trace (Negative); Leukocyte Esterase,Urine Moderate (Negative); Mucus,Urine Rare /hpf; Nitrite,Urine Negative (Negative); PH, Urine 5.5 (5.0-8.0); Protein,Urine 1+ (Negative); RBC,Urine >182 /hpf (0-5); Specific Gravity,Urine 1.013 (1.001-1.035); Urobilinogen,Urine <2.0 mg/dL (<2.0)
[2019-10-16 12:45] VITALS: BP 161/102; PULSE 55; TEMP 98.9
== END 2019-10-16 12:45 | disposition home or self-care (01) ==
LOC: EC 10:19
DX: N13.2 Hydronephrosis with renal and ureteral calculous obstruction (principal); Z87.891 Personal history of nicotine dependence; Z88.5 Allergy status to narcotic agent; Z88.6 Allergy status to analgesic agent; Z91.040 Latex allergy status; Z80.0 Family history of malignant neoplasm of digestive organs
CPT/HCPCS: 99285; 96374; 96375 ×2; 96361 ×2; 36415; 93005; 80053; 82150; 82803; 83605; 83690; 85025; 85610; 85730; 81001; 87086; 71046; 74018; J2405; J1885; J1170

== ENCOUNTER 2019-10-16 15:30 | Day surgery (SDC) | payer BC, MEDICARE ==
--- NOTE | 2019-10-16 11:25 | P.GSHP ---
History of Present Illness H&P Date: 10/16/19 Chief Complaint: Right flank pain The patient is a 69-year-old white male with a history of recurrent urolithiasis. He presented earlier this year with left flank pain associated with gross hematuria. A computed tomography scan revealed multiple large left ureteral calculi. He underwent left ureteroscopy with laser lithotripsy on 2 occasions. He has a known 1 cm right renal calculus, and presented back with occasional right flank discomfort. He underwent right ureteroscopy with laser lithotripsy on 10/09/2019. The calculus was fragmented completely. He reported significant right flank pain radiating to the right lower quadrant of the abdomen on 10/14/2019 associated with hematuria. The pain increased with micturition. This was removed in the office, but he is pain subsequently increased. He presented to the emergency room and [facility]. A compu albino tomography scan showed evidence of right perinephric fluid and edema, suggestive of a forniceal rupture. The computed tomography scan also showed evidence of left hydronephrosis, with a possible ureteral stricture at the level of the iliac vessels. He was admitted for observation, and his pain essentially resolved. However, today once again he is experiencing severe right flank pain. - Constitutional Constitutional: Denies chills, Denies fever - Respiratory Respiratory: Reports dyspnea - Gastrointestinal Gastrointestinal: Reports nausea - Genitourinary (Female) Genitourinary: Reports flank pain, Reports kidney stones Past Medical History Past Medical History: No Reported History Additional Past Medical History / Comment(s): kidney stones History of Any Multi-Drug Resistant Organisms: None Reported Past Surgical History: Hernia Repair, Orthopedic Surgery Additional Past Surgical History / Comment(s): knee surgery, multiple Ureteral stent placement Past Anesthesia/Blood Transfusion Reactions: No Reported Reaction Past Psychological History: No Psychological Hx Reported Smoking Status: Former smoker Past Alcohol Use History: Rare Past Drug Use History: None Reported - Past Family History Father Family Medical History: Cancer Additional Family Medical History / Comment(s): from melanoma Mother Family Medical History: Cancer Additional Family Medical History / Comment(s): from colon cancer Medications and Allergies Home Medications Medication Instructions Recorded Confirmed Type No Known Home Medications 10/14/19 10/14/19 History Allergies Allergy/AdvReac Type Severity Reaction Status Date / Time acetaminophen [From [place]] Allergy Unknown Verified 10/14/19 17:57 hydrocodone [From [place]] Allergy Unknown Verified 10/14/19 17:57 latex Allergy Rash/Hives Verified 10/14/19 17:57 meperidine [From [place]erol] Allergy Nausea & Verified 10/14/19 17:57 Vomiting Surgical - Exam - General well developed, well nourished, severe distress - Respiratory normal respiratory effort - Abdomen Abdomen: soft, non tender, no guarding, no rigid, no rebound - Psychiatric oriented to time, oriented to person, oriented to place, speech is normal, memory intact Assessment and Plan (1) Hydronephrosis Status: Acute Code(s): N13.30 - UNSPECIFIED HYDRONEPHROSIS SNOMED Code(s): 90460944 Plan: The patient is being evaluated in the emergency room for shortness of breath. He will undergo cystoscopy, bilateral retrograde pyelograms, bilateral ureteral stent insertion. The rationale for this was reviewed with the patient and his . Potential risks include anesthesia, bleeding, infection, ureteral injury, and inability to place the stents.
[~2019-10-16 15:30] MED LIST changes: -HYDROmorphone 0.5 MG/0.5 ML SYRINGE IVP PRN; +IOPAMIDOL-370 50ML BTL MISCELLANE ONE; +LACTATED RINGERS 1,000 ML IV ONE; -LACTATED RINGERS 1,000 ML IV SCH; +LIDOCAINE 1% INJ 10MG/ML (20 ML MDV) ONE; -MIDAZOLAM 2 MG/2 ML VIAL IV PRN; +MIDAZOLAM 2 MG/2 ML VIAL ONE; +PROPOFOL 10 MG/ML 20 ML VIAL IV ONE; -SCOPOLAMINE 1.5MG/72HR PATCH TRANSDERM ONE; +SUCCINYLCHOLINE CHLORIDE 100 MG/5 ML SYR IV ONE; +ePHEDrine SULFATE/0.9% NACL/PF 50 MG/5 ML SYRINGE IV ONE; +fentaNYL (PF) 50 MCG/ML 2 ML AMP IVP ONE; +fentaNYL (PF) 50 MCG/ML 2 ML AMP ONE
[2019-10-16] MEDS ORDERED: LABETALOL SYRINGE 5 MG/ML IVP ONE (15:36)
--- NOTE | 2019-10-16 16:01 | P.OP ---
Date of Procedure: 10/16/19 Preoperative Diagnosis: Bilateral hydronephrosis Postoperative Diagnosis: Right hydronephrosis secondary to right distal ureteral calculi, left hydronephrosis secondary to left ureteral stricture Procedure(s) Performed: Cystoscopy, bilateral retrograde pyelograms, left ureteroscopy, right ureteroscopy with stone basketing, right ureteral stent insertion Anesthesia: DOTTY Surgeon: Froilan Noland Estimated Blood Loss (ml): 0 IV fluids (ml): 700 Pathology: none sent Condition: stable Disposition: PACU Indications for Procedure: The patient is a 69-year-old white male with a history of recurrent urolithiasis. He presented earlier this year with left flank pain associated with gross hematuria. A computed tomography scan revealed multiple large left ureteral calculi. He underwent left ureteroscopy with laser lithotripsy on 2 occasions. He has a known 1 cm right renal calculus, and presented back with occasional right flank discomfort. He underwent right ureteroscopy with laser lithotripsy on 10/09/2019. The calculus was fragmented completely. He reported significant right flank pain radiating to the right lower quadrant of the abdomen on 10/14/2019 associated with hematuria. The pain increased with micturition. This was removed in the office, but he is pain subsequently increased. He presented to the emergency room and [facility]. A computed tomography scan showed evidence of right perinephric fluid and edema, suggestive of a forniceal rupture. The computed tomography scan also showed evidence of left hydronephrosis, with a possible ureteral stricture at the level of the iliac vessels. He was admitted for observation, and his pain essentially resolved. However, today once again he is experiencing severe right flank pain and he will thus be returned to the operating room. Operative Findings: Several right distal ureteral calculi. Left ureteral stricture at the level of the iliac vessels. Description of Procedure: The patient was taken to the operating room and placed in the dorsolithotomy position, with legs supported in Stuart stirrups. The external genitalia was prepped and draped sterilely. The 30 lens was used to introduce the 22-[place] Stortz cystoscopic sheath through the urethra and into the bladder under direct vision. The prostatic urethra showed evidence of mild lateral lobe enlargement, as well as an enlarged median lobe. The bladder was examined in its entirety. Both ureteral orifices were normal anatomic location and configuration. Edema surrounded the right ureteral orifice. No tumors were seen. Several small calculus fragments were seen within the bladder. Using a 10-[place] cone-tip catheter, bilateral retrograde pyelograms were performed in the standard fashion. A calcification was seen within the right hemipelvis, measuring 2-3 millimeters in diameter. The retrograde pyelogram confirmed this to be an intraluminal calculus. The [facility] semirigid ureteroscope was advanced into the bladder, and the right ureteral orifice was cannulated. The calculus was identified within the right distal ureter. This was removed using a 1.9 micron nitinol basket. Several additional tiny calculus fragments were removed via stone basketing. Mild inflammation of the ureter was noted at the level of the iliac vessels. A 0.035 inch Glidewire was advanced through the ureteroscope. The Glidewire was advanced up to the right renal pelvis, where it coiled. The Glidewire was backloaded into the cystoscope, which was passed into the bladder. A 26 cm, 6-[place] double-J ureteral stent was placed over the wire. Proper stent positioning was verified fluoroscopically and endoscopically. The left retrograde pyelogram revealed the left distal ureter to be normal in caliber. The majority of the contrast effluxed into the bladder. The cystoscope was removed, and the [facility] semirigid ureteroscope was advanced into the bladder. The left ureteral orifice was cannulated, and the ureteroscope was slowly advanced under direct vision. A blind-ending ureter appeared at the level of the iliac vessels. The Glidewire was carefully advanced, but a lumen could not be identified. Contrast was injected through the ureteroscope, but the ureter proximal to this could not be opacified. The ureteroscope was removed, and an 18-[place]ian Georges catheter was placed. The return was clear. The patient tolerated the procedure well and was taken to the recovery room in stable condition.
[2019-10-16] MEDS ORDERED: ACETAMINOPHEN TAB 325 MG TAB PO PRN (18:42)
[2019-10-16] MEDS ORDERED: HYDROmorphone 1 MG/ML 1 ML SYRINGE IVP PRN (18:42)
[2019-10-16] MEDS: DEXTROSE 5%-0.45% NACL 1,000 ML IV SCH (19:01)
[2019-10-17 06:34] LABS: Calcium 8.5 mg/dL (8.4-10.2); Potassium 4.4 mmol/L (3.5-5.1)
[2019-10-17] MEDS: DEXTROSE 5%-0.45% NACL 1,000 ML IV SCH ×2 (08:02→20:47)
[2019-10-17] MEDS: amLODIPine 5 MG TAB PO SCH (10:53)
--- NOTE | 2019-10-17 11:08 | CONS ---
CONSULTATION CHIEF COMPLAINT: Paroxysmal SVT. This is a 69-year-old gentleman with history of urinary stones with history of hematuria and flank pain who has had ureteroscopy, stent placement and lithotripsy and subsequently developed problems related to the stent placement, presented to the ER yesterday and another attempt was made at placing stents both sides. I am told they were was successful on 1 side and not successful on the other. I have been consulted because of episodes of SVT. The patient in the perioperative setting had an episode of SVT that is documented in her rhythm strips. The patient had similar episodes apparently done during previous surgery. The patient does not have any cardiac symptoms. There is no history of sustained palpitations, chest pain, difficulty in breathing, or syncope. There is no history of hypertension, diabetes, dyslipidemia. PAST MEDICAL HISTORY: Unremarkable. MEDICATIONS: None. ALLERGIES: TO HYDROCODONE, DEMEROL, AND LATEX. FAMILY HISTORY: Negative for premature coronary artery disease. SOCIAL HISTORY: Negative for smoking, EtOH abuse or drug abuse. REVIEW OF SYSTEMS: HEENT is unremarkable. Cardiac is as described above. RESPIRATORY: Negative. GI negative. Genitourinary significant for hematuria and recurrent urolithiasis and surgical intervention. 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 Heme-Onc negative. Rest of the system review is not relevant. PHYSICAL EXAMINATION: On exam, patient is comfortable at rest. Heart rate is 90 beats per minute. Blood pressure is 150/85, respiratory rate 18. Chest exam reveals good air entry bilaterally. Heart exam reveals first and second heart sounds. No gallop. No murmur. Abdomen is soft, nontender. Exam of extremities did not reveal any edema. Peripheral pulses are felt. LABS: Labs show that the potassium is 4.4. Creatinine is 1.1. EKG: Shows sinus bradycardia with PVCs. Rhythm strip showed the same and the rhythm strips in the perioperative setting showed self-limited run of SVT. The patient has rhythm strips from his previous surgery. Assessment. AND PLAN: 1. Paroxysmal supraventricular tachycardia. 2. Hematuria secondary to urolithiasis status post surgical intervention. PLAN: He does not require specific treatment or further evaluation for SVT at this time. I am not going to start him on beta blockers as he is already bradycardic. I will obtain a 2D echo to evaluate his LV function. Once his urolithiasis issues have been addressed, we will consider EP study and ablation if necessary and there are no contraindications to patient going through surgery. Even if he goes into SVT, I expect him to tolerate it well. MMMELANIEL / IJN: [id number] /
--- NOTE | 2019-10-17 16:11 | P.PN ---
Subjective Progress Note Date: 10/17/19 postoperative day one status post bilateral ureteroscopy and right ureteral stent placement. No acute overnight event pain is controlled and tolerating a diet Objective - Vital Signs Vital signs: Vital Signs Temp 98.0 F 10/17/19 09:00 Pulse 61 10/17/19 12:00 Resp 20 10/17/19 12:00 BP 110/58 10/17/19 12:00 Pulse Ox 96 10/17/19 12:00 Intake & Output 10/16/19 10/17/19 10/17/19 18:59 06:59 18:59 Intake Total 1900 825 480 Output Total 1800 775 250 Balance 100 50 230 Weight 82.1 kg 82.6 kg Intake: IV 1900 300 Dextrose 5%-0.45% NaCl 1, 300 000 ml @ 75 mls/hr IV . [id number] LUCERO Rx#:[id number] Intake, IV Titration 825 Amount Dextrose 5%-0.45% NaCl 1, 825 000 ml @ 75 mls/hr IV . [id number] LUCERO Rx#:[id number] Oral 180 Output: Urine 1800 775 250 Estimated Blood Loss 0 Other: Voiding Method Indwelling Catheter Indwelling Catheter # Voids 0 0 # Bowel Movements 1 - Constitutional General appearance: Present: no acute distress - Gastrointestinal General gastrointestinal: Present: soft. Absent: distended - Psychiatric Psychiatric: Present: A&O x's 3 - Labs CBC & Chem 7: 10/17/19 05:58 Labs: Abnormal Lab Results - Last 24 Hours (Table) 10/17/19 Range/Units 05:58 Glucose 111 H (74-99) mg/dL Assessment and Plan Assessment: S/P bilateral ureteroscopy and right ureteral stent placement. 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 labs, monitor urine output -NPO past midnight for left nephrostomy tube placement by IR
[2019-10-18 01:10] LABS: Calcium 8.3 mg/dL (8.4-10.2); Potassium 4.2 mmol/L (3.5-5.1)
[2019-10-18 01:32] LABS: Prothrombin Time 10.4 sec (9.0-12.0)
[2019-10-18 01:47] LABS: Basophils % (A) 0 %; Eosinophils # (A) 0.1 k/uL (0-0.7); Eosinophils % (A) 2 %; HCT 36.3 % (39.0-53.0); Lymphocytes # (A) 1.6 k/uL (1.0-4.8); Lymphocytes % (A) 25 %; MCH 29.1 pg (25.0-35.0); Mean Platelet Volume 8.6; Monocytes # (A) 0.4 k/uL (0-1.0); Monocytes % (A) 7 %; Neutrophils # (A) 4.1 k/uL (1.3-7.7); Neutrophils % (A) 64 %; Platelet Count 174 k/uL (150-450); RBC 4.13 m/uL (4.30-5.90); RDW 12.7 % (11.5-15.5); WBC 6.4 k/uL (3.8-10.6)
--- NOTE | 2019-10-18 08:01 | ECHOF ---
Referral Reason:SVT during surgery MEASUREMENTS -------- HEIGHT: 175.3 cm WEIGHT: 82.1 kg BP: 150/85 RVIDd: 4.3 cm (< 3.3) IVSd: 1.3 cm (0.6 - 1.1) LVIDd: 4.8 cm (3.9 - 5.3) LVPWd: 1.4 cm (0.6 - 1.1) IVSs: 1.5 cm LVIDs: 3.4 cm LVPWs: 2.0 cm LAESV Index (A-L): 45.26 ml/m Ao Diam: 2.7 cm (2.0 - 3.7) AV Cusp: 1.8 cm (1.5 - 2.6) LA Diam: 3.8 cm (2.7 - 3.8) MV EXCURSION: 12.495 mm (> 18.000) MV EF SLOPE: 82 mm/s (70 - 150) EPSS: 0.7 cm MV E Tonny: 0.92 m/s MV DecT: 262 ms MV A Tonny: 0.53 m/s MV E/A Ratio: 1.73 RAP: 20.00 mmHg RVSP: 47.12 mmHg FINDINGS -------- Sinus rhythm with extra systolic beats. This was a technically good study. The left ventricular size is normal. There is moderate concentric left ventricular hypertrophy. T here is normal global left ventricular contractility. Overall left ventricular systolic function is normal with, an EF between 60 - 65 %. Increased Lap Grade II Diastolic Dysfunction. Basal inferi or LV wall motion is normal. The right ventricle is moderately enlarged. LA is severely dilated >40 ml/m2 The right atrium is moderately enlarged. Interatrial and interventricular septum intact. There is no evidence of aortic regurgitation. There is no evidence of aortic stenosis. Mild mitral annular calcification present. There is trace mitral regurgitation. Hmze-ck-obsbtucr tricuspid regurgitation present. There is mild to moderate pulmonary hypertension. The right ventricular systolic pressure, as measured by Doppler, is 47.12mmHg. There is no pulmonic regurgitation present. The aortic root size is normal. The inferior vena cava is dilated with no significant inspiratory collapse which is consistent estima albino right atrial pressure of >20 mmHg. There is no pericardial effusion. CONCLUSIONS -------- 1. Sinus rhythm with extra systolic beats. 2. This was a technically good study. 3. The left ventricular size is normal. 4. There is moderate concentric left ventricular hypertrophy. 5. There is normal global left ventricular contractility. 6. Overall left ventricular systolic function is normal with, an EF between 60 - 65 %. 7. Increased Lap Grade II Diastolic Dysfunction. 8. The right ventricle is moderately enlarged. 9. LA is severely dilated >40 ml/m2 10. The right atrium is moderately enlarged. 11. Interatrial and interventricular septum intact. 12. There is no evidence of aortic regurgitation. 13. There is no evidence of aortic stenosis. 14. Mild mitral annular calcification present. 15. There is trace mitral regurgitation. 16. Hvai-pu-qmdnamif tricuspid regurgitation present. 17. There is mild to moderate pulmonary hypertension. 18. The right ventricular systolic pressure, as measured by Doppler, is 47.12mmHg. 19. There is no pulmonic regurgitation present. 20. The aortic root size is normal. 21. The inferior vena cava is dilated with no significant inspiratory collapse which is consistent es timated right atrial pressure of >20 mmHg. 22. There is no pericardial effusion. OYSTER WORKER: Wanda De Los Santos RDCS
[2019-10-18] MEDS: amLODIPine 5 MG TAB PO SCH (09:03)
--- NOTE | 2019-10-18 11:05 | FL ---
Fluoroscopy HISTORY: Retrograde stent placement 56 seconds fluoroscopy time supplied to the referring clinician. 5 intraoperative C-arm images docum ent the procedure. See dictated report from urology.
[2019-10-18] MEDS: MIDAZOLAM 2 MG/2 ML VIAL IVP ONE ×2 (12:03→12:10)
[2019-10-18] MEDS: fentaNYL (PF) 50 MCG/ML 2 ML AMP IV ONE ×2 (12:03→12:13)
[2019-10-18] MEDS ORDERED: IV FLUID CONTINUATION 800 ML IV ONE (12:04)
[2019-10-18] MEDS ORDERED: LIDOCAINE 1% INJ 10MG/ML (20 ML MDV) SQ ONE (12:09)
[2019-10-18] MEDS ORDERED: IOPAMIDOL-250 100ML BTL IV ONE (12:21)
[2019-10-18 13:35] VITALS: BP 168/76; PULSE 58; RESP 18; TEMP 97.7
--- NOTE | 2019-10-18 13:41 | IR ---
EXAMINATION TYPE: IR left nephrostomy, US guide intraoperative DATE OF EXAM: 10/18/2019 COMPARISON: CT dated 10/14/2019, retrograde urogram 10/16/2019 HISTORY: Hydronephrosis, left ureteral obstruction and stricture PROCEDURE: Maximal barrier technique was utilized. Ultrasound image was submitted on patient's chart documenting procedure. The skin overlying the left kidney was localized using ultrasound and the over lying skin prepped and draped. Ultrasound was utilized with sterile technique. Lidocaine used for lo zenobia anesthesia. Skin james was made with a scalpel. Access was gained under ultrasound with a 21-gau ge needle to the lower pole of the left kidney posterior calyx. Urine returned in the hub of the nee dle. A 0.018 inch wire was advanced. The access site was dilated, 5 Nigerian catheter advanced over the wire and general hand injection of contrast material performed verifying placement and ureteral o bstruction proximally, and subsequently an 8.5 Nigerian catheter was advanced over wire in the renal pe lvis and fixed in place following dilation. Urine returned in the hub of the catheter. Catheter was fixed to the skin with 2-0 silk and a sterile dressing was placed. The patient remained in stable c ondition without complication. The patient was discharged to observation. FINDINGS: Segmental tendon stenoses of the proximal ureter is noted. Some retained contrast thought t o be present in the mid ureter from previous procedure. IMPRESSION: STATUS POST 8.5 ROMANSH left NEPHROSTOMY TUBE PLACEMENT WITH ULTRASOUND AND FLUOROSCOPIC G UIDANCE. THIS PROCEDURE WAS PERFORMED BY THE UNDERSIGNED.
[2019-10-18] MEDS: DEXTROSE 5%-0.45% NACL 1,000 ML IV SCH (14:40)
[2019-10-18] MEDS ORDERED: amLODIPine 5 MG TAB PO STA (14:45)
--- NOTE | 2019-10-18 15:33 | PN ---
PROGRESS NOTE FOLLOW-UP NOTE: This is a 69-year-old gentleman admitted to hospital secondary to nephrolithiasis. I have been asked to see him because of SVT. An echocardiogram I performed shows normal LV function. On exam, comfortable at rest. Vital signs are stable. Chest exam reveals good air entry bilaterally. Heart exam reveals first and second heart sounds. No gallop. Blood pressure is elevated at 168/76. ASSESSMENT: 1. Uncontrolled hypertension. 2. Paroxysmal supraventricular tachycardia. 3. Nephrolithiasis. PLAN: I will increase the dose of Norvasc to 10 mg daily. MMODL / IJN: [id number] /
--- NOTE | 2019-10-18 16:07 | P.PN ---
Subjective Progress Note Date: 10/18/19 Principal diagnosis: bilateral hydronephrosis postoperative day two status post bilateral ureteroscopy and right ureteral stent placement. He underwent left PCN placement. No acute overnight event pain is controlled and tolerating a diet Objective - Vital Signs Vital signs: Vital Signs Temp 97.7 F 10/18/19 12:00 Pulse 58 L 10/18/19 12:00 Resp 18 10/18/19 12:00 BP 168/76 10/18/19 12:00 Pulse Ox 96 10/18/19 12:00 Intake & Output 10/17/19 10/18/19 10/18/19 18:59 06:59 18:59 Intake Total 480 50 Output Total 250 1650 2300 Balance 230 -1650 -2250 Weight 81.9 kg Intake: IV 300 50 Dextrose 5%-0.45% NaCl 1, 300 000 ml @ 75 mls/hr IV . [id number] LUCERO Rx#:[id number] Oral 180 Output: Urine 250 1650 2300 Other: Voiding Method Indwelling Catheter Indwelling Catheter Indwelling Catheter # Voids 0 1 # Bowel Movements 1 - Constitutional General appearance: Present: no acute distress - Gastrointestinal General gastrointestinal: Present: soft. Absent: distended, rigid - Psychiatric Psychiatric: Present: A&O x's 3 - Labs CBC & Chem 7: 10/18/19 00:50 10/18/19 00:50 Labs: Abnormal Lab Results - Last 24 Hours (Table) 10/18/19 10/18/19 Range/Units 00:50 00:50 RBC 4.13 L (4.30-5.90) m/uL Hgb 12.0 L (13.0-17.5) gm/dL Hct 36.3 L (39.0-53.0) % Glucose 102 H (74-99) mg/dL Calcium 8.3 L (8.4-10.2) mg/dL Assessment and Plan Assessment: S/P bilateral ureteroscopy and right ureteral stent placement. 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
--- NOTE | 2019-10-18 16:09 | P.DS ---
Providers Date of admission: 10/16/19 15:31 Attending physician: Froilan Noland Consults: 10/16/19 16:35 Consult Physician Routine Consulting Provider: [facility] Consult Reason/Comments: dysrhythmia Do you want consulting provider notified?: Yes Primary care physician: Stated None Hospital Course: Mr. Crystal is a 69-year-old male with history of bilateral hydronephrosis he underwent bilateral ureteroscopy with Dr. Noland. A right ureteral stent was placed. A left ureteral stent could not be placed due to blind-ending ureter. Postoperatively patient had arrhythmias and he was admitted for telemetry and a cardiology consult. Cardiology was consulted and they recommended no intervention at this time, they did perform an echo and recommended outpatient follow-up. On POD #2 2 he underwent left nephrostomy tube placement by interventional radiology for his left sided hydronephrosis and he was discharged home on postop day #2 with a nephrostomy tube and a Georges catheter he will follow up with Dr. Stevens next week Plan - Discharge Summary Discharge Rx Participant: Yes New Discharge Prescriptions: New Hydrocodone/Acetaminophen [[place] 5-325] 1 - 2 each PO Q4HR PRN #6 tab PRN Reason: Pain Discharge Medication List Hydrocodone/Acetaminophen [[place] 5-325] 1 - 2 each PO Q4HR PRN #6 tab 10/16/19 [Rx] Follow up Appointment(s)/Referral(s): Froilan Noland MD [STAFF PHYSICIAN] - 10/21/19 (Please call office on Monday to schedule follow up appointment. ) Patient Instructions/Handouts: *[facility] - Cystoscopy Discharge Instructions, *[facility] - (Anesthesia) Discharge Instructions Outpatient Surgery Activity/Diet/Wound Care/Special Instructions: Discharge home with Georges catheter. Diet as tolerated. Activity as tolerated. Please call Radiology at [phone] on Monday to schedule dressing change on 10/24 or 10/25. Discharge Disposition: HOME SELF-CARE
[2019-10-19] MEDS ORDERED: amLODIPine 10 MG TAB PO SCH (09:00)
== END 2019-10-18 16:25 | disposition home or self-care (01) ==
LOC: OR 15:30 → 3SCARD 15:30 → UNDOADMIN 15:31 → 3SCARD 15:31 → OR 15:31 → UNDODISIN 10-18 16:25 → OR 10-18 16:25
PROVIDERS: ATTEND Urology
DX: N13.2 Hydronephrosis with renal and ureteral calculous obstruction (principal); N13.1 Hydronephrosis with ureteral stricture, not elsewhere classified; I47.1 Supraventricular tachycardia; I10 Essential (primary) hypertension; Z87.442 Personal history of urinary calculi; Z91.040 Latex allergy status; Z88.5 Allergy status to narcotic agent; Z98.890 Other specified postprocedural states; Z87.891 Personal history of nicotine dependence; Z80.8 Family history of malignant neoplasm of other organs or systems; Z80.0 Family history of malignant neoplasm of digestive organs
CPT/HCPCS: 93306; 93005; 50433; 80048 ×2; 85025; 85610; 74420; 52352; 52332; C2625; C1758; C1769 ×3; C1729; J2250 ×2; J1100; J2405; J2001 ×2; J3010 ×2; J0330; J2704; Q9966; Q9967

== ENCOUNTER 2019-10-24 15:01 | Day surgery (SDC) | payer BC, MEDICARE ==
[2019-10-24 15:54] VITALS: BP 161/75; PULSE 66; RESP 16; TEMP 98.5
== END 2019-10-24 15:50 | disposition home or self-care (01) ==
LOC: RADPROMAIN 15:01
PROVIDERS: ATTEND Radiology Diagnostic Radiology
DX: Z48.03 Encounter for change or removal of drains (principal); Z48.01 Encounter for change or removal of surgical wound dressing; Z43.6 Encounter for attention to other artificial openings of urinary tract
CPT/HCPCS: 99213

== ENCOUNTER 2019-10-31 15:00 | Day surgery (SDC) | payer BC, MEDICARE ==
[2019-10-31 15:50] VITALS: PULSE 62; RESP 18; TEMP 98.2
[2019-10-31 15:53] VITALS: BP 168/88
== END 2019-10-31 15:45 | disposition home or self-care (01) ==
LOC: RADPROMAIN 15:00
PROVIDERS: ATTEND Radiology Diagnostic Radiology
DX: Z48.03 Encounter for change or removal of drains (principal)
CPT/HCPCS: 99213

== ENCOUNTER → 2019-11-06 | Outpatient (CLI) | payer BC ==
[~2019-11-06] MED LIST changes: -DEXAMETHASONE SOD PHOSPHATE 10 MG/ML 1 ML VIAL IV ONE; +FUROSEMIDE 10 MG/ML 2 ML VIAL IV ONE; -IOPAMIDOL-370 50ML BTL MISCELLANE ONE; -LACTATED RINGERS 1,000 ML IV ONE; -LIDOCAINE 1% INJ 10MG/ML (20 ML MDV) ONE; -MIDAZOLAM 2 MG/2 ML VIAL ONE; -ONDANSETRON 4 MG/2 ML VIAL IVP ONE; -PROPOFOL 10 MG/ML 20 ML VIAL IV ONE; -SUCCINYLCHOLINE CHLORIDE 100 MG/5 ML SYR IV ONE; -ePHEDrine SULFATE/0.9% NACL/PF 50 MG/5 ML SYRINGE IV ONE; -fentaNYL (PF) 50 MCG/ML 2 ML AMP IVP ONE; -fentaNYL (PF) 50 MCG/ML 2 ML AMP ONE
--- NOTE | 2019-11-06 16:47 | NM ---
EXAMINATION TYPE: NM lasix renogram DATE OF EXAM: 11/06/2019 COMPARISON: NONE HISTORY: Hydronephrosis left kidney Following administration of 10.4 mCi Tc 99m MAG3 with 20mg Lasix. Immediate images post injection FINDINGS: Left: 15.2 %. Right: 84.8 %. Max renal flow left: <1 minutes. Max renal flow right: 84.8 minutes. Satisfactory accumulation of radiotracer within the right renal collecting system, decreased uptake n oted within the left kidney. After the administration of Lasix, there is continued excretion from the right renal collecting system. Minimal excretion from the left kidney is identified. T 1/2 left: NOT ATTAINABLE minutes. T 1/2 right: 18.0 MINUTES minutes. IMPRESSION: Decreased renal function left kidney.
== END | disposition home or self-care (01) ==
LOC: RADNMMAIN 13:52
PROVIDERS: ATTEND Urology
DX: N28.9 Disorder of kidney and ureter, unspecified (principal)
CPT/HCPCS: 78708; A9562

== ENCOUNTER 2019-11-07 15:33 | Day surgery (SDC) | payer BC ==
[2019-11-07 16:11] VITALS: PULSE 63; RESP 14; TEMP 98.4
[2019-11-07 16:24] VITALS: BP 162/96
== END 2019-11-07 16:35 | disposition home or self-care (01) ==
LOC: RADPROMAIN 15:33
PROVIDERS: ATTEND Radiology Diagnostic Radiology
DX: Z43.6 Encounter for attention to other artificial openings of urinary tract (principal); Z48.01 Encounter for change or removal of surgical wound dressing
CPT/HCPCS: 99213

== ENCOUNTER 2019-11-14 15:11 | Day surgery (SDC) | payer BC ==
[2019-11-14 15:37] VITALS: RESP 20; TEMP 98.1
[2019-11-14 16:04] VITALS: BP 186/100; PULSE 61
== END 2019-11-14 16:15 | disposition home or self-care (01) ==
LOC: RADPROMAIN 15:11
PROVIDERS: ATTEND Radiology Diagnostic Radiology
DX: Z43.6 Encounter for attention to other artificial openings of urinary tract (principal); Z48.01 Encounter for change or removal of surgical wound dressing

== ENCOUNTER → 2019-11-21 | Day surgery (SDC) | payer BC ==
[2019-11-21 16:18] VITALS: PULSE 78; RESP 16; TEMP 98.2
[2019-11-21 16:21] VITALS: BP 162/84
== END ==
LOC: RADPROMAIN 15:32
PROVIDERS: ATTEND Radiology Diagnostic Radiology
DX: Z48.01 Encounter for change or removal of surgical wound dressing (principal); Z93.6 Other artificial openings of urinary tract status
CPT/HCPCS: 99213

== ENCOUNTER 2019-11-28 15:26 | Day surgery (SDC) | payer BC ==
[2019-11-28 16:06] VITALS: BP 161/98; PULSE 62; RESP 14; TEMP 98.3
== END 2019-11-28 16:00 | disposition home or self-care (01) ==
LOC: RADPROMAIN 15:26
PROVIDERS: ATTEND Radiology Diagnostic Radiology
DX: Z48.03 Encounter for change or removal of drains (principal)
CPT/HCPCS: 99213

== ENCOUNTER 2019-12-05 15:28 | Day surgery (SDC) | payer BC ==
[2019-12-05 16:22] VITALS: BP 152/66; PULSE 58; RESP 16; TEMP 97.6
== END 2019-12-05 16:23 | disposition home or self-care (01) ==
LOC: RADPROMAIN 15:28
PROVIDERS: ATTEND Radiology Diagnostic Radiology
DX: Z48.01 Encounter for change or removal of surgical wound dressing (principal); Z43.6 Encounter for attention to other artificial openings of urinary tract
CPT/HCPCS: 99213

== ENCOUNTER 2019-12-12 10:49 | Day surgery (SDC) | payer BC ==
[2019-12-11 08:14] VITALS: BMI 27.0
[2019-12-12] MEDS ORDERED: LEVOFLOXACIN 500MG-D5W PMX 500 MG in DEXTROSE/WATER 1 100ML.BAG IVPB ONE (11:00)
[2019-12-12] MEDS ORDERED: SODIUM CHLORIDE 0.9% 500 ML 500 ML IV SCH (11:00)
[2019-12-12 11:18] VITALS: RESP 16; TEMP 97.9
[2019-12-12] MEDS ORDERED: SODIUM CHLORIDE 0.9% 1,000 ML IV ONE (11:18)
--- NOTE | 2019-12-12 11:39 | P.GSHP ---
History of Present Illness H&P Date: 12/12/19 Chief Complaint: Left hydronephrosis The patient is a 69-year-old white male with a history of recurrent urolithiasis. He presented last year with left flank pain associated with gross hematuria. A computed tomography scan revealed multiple large left ureteral calculi. He underwent left ureteroscopy with laser lithotripsy on 2 occasions. He had a known 1 cm right renal calculus, and presented back with occasional right flank discomfort. He underwent right ureteroscopy with laser lithotripsy on 10/09/2019. The calculus was fragmented completely. He reported significant right flank pain radiating to the right lower quadrant of the abdomen on 10/14/2019 associated with hematuria. The pain increased with micturition. The stent was removed in the office, but his pain subsequently increased. He presented to the emergency room at [facility]. A CT scan showed evidence of right perinephric fluid and edema, suggestive of a forniceal rupture. The CT scan also showed evidence of left hydronephrosis, with a possible ureteral stricture at the level of the iliac vessels. He underwent ureteroscopic removal of right ureteral calculi. Left ureteroscopy was performed, revealing a left mid ureteral stricture. He underwent placement of a left percutaneous nephrostomy tube and is being evaluated for repair of his left ureteral stricture. He now comes for a left nephrostomy tube change. - Constitutional Constitutional: Denies chills, Denies fever Past Medical History Past Medical History: Cancer, Hearing Disorder / Deafness, Hypertension Additional Past Medical History / Comment(s): kidney stones, basal cell skin cancer on neck and scalp, CHEESH-NA -CHEESH-NA LEFT EAR ALMOST CANT HEAR ANYTHING, CHEESH-NA RT, irregular heart beat History of Any Multi-Drug Resistant Organisms: None Reported Past Surgical History: Hernia Repair, Orthopedic Surgery Additional Past Surgical History / Comment(s): left knee arthroscopy, multiple Ureteral stent placement , LEFT INGUINAL HERNIA REPAIR Past Anesthesia/Blood Transfusion Reactions: Postoperative Nausea & Vomiting (PONV) Smoking Status: Former smoker - Past Family History Father Family Medical History: Cancer Additional Family Medical History / Comment(s): melanoma Mother Family Medical History: Cancer Additional Family Medical History / Comment(s): colon cancer Medications and Allergies Home Medications Medication Instructions Recorded Confirmed Type amLODIPine BESYLATE [Norvasc] 10 mg PO DAILY 11/28/19 12/12/19 History Allergies Allergy/AdvReac Type Severity Reaction Status Date / Time acetaminophen [From Vicodin] Allergy Nausea & Verified 12/12/19 11:04 Vomiting hydrocodone Allergy Nausea & Verified 12/12/19 11:04 Vomiting latex Allergy Rash/Hives Verified 12/12/19 11:04 meperidine [From Demerol] Allergy Nausea & Verified 12/12/19 11:04 Vomiting Surgical - Exam Vital Signs Temp Pulse Resp BP Pulse Ox 97.9 F 65 16 165/84 99 12/12/19 11:12 12/12/19 11:12 12/12/19 11:12 12/12/19 11:12 12/12/19 11:12 - General well developed, well nourished, no distress - Respiratory normal respiratory effort - Abdomen Abdomen: soft, non tender, no guarding, no rigid, no rebound - Psychiatric oriented to time, oriented to person, oriented to place, speech is normal, memory intact Assessment and Plan (1) Hydronephrosis Current Visit: No Status: Acute Code(s): N13.30 - UNSPECIFIED HYDRONEPHROSIS SNOMED Code(s): 55818675 Plan: Left nephrostomy tube change will be performed by Dr. Alex.
[2019-12-12] MEDS ORDERED: LIDOCAINE 1% INJ 10MG/ML (20 ML MDV) SQ ONE ×2 (12:02)
[2019-12-12] MEDS ORDERED: fentaNYL (PF) 50 MCG/ML 2 ML AMP IV ONE (12:04)
[2019-12-12 13:04] VITALS: BP 151/74; PULSE 62
--- NOTE | 2019-12-13 11:35 | IR ---
Fluoroscopic guided nephrostomy tube exchange over a guidewire DATE OF EXAM: 12/12/2019 CLINICAL HISTORY: Request for nephrostomy tube exchange The procedure was discussed with the patient. The risks, complications, benefits, and alternatives we re discussed and any questions were answered. Informed consent was obtained. The patient was placed supine on the ultrasound table and prepped and draped in the usual sterile fas hion. All elements of maximal barrier and sterile technique were utilized. Under fluoroscopic guidance, access and diluted contrast was injected through the pre-existing nephro stomy tube and was seen to be contained within the renal pelvis. Catheter was removed over guidewire and exchanged for a new 8.5 Singaporean percutaneous nephrostomy tube. Repeat injection demonstrated ideal placement catheter. The patient was stable throughout the procedure and remained stable upon dischar ge from Department of Radiology. IMPRESSION: 1. Successful nephrostomy tube exchange over guidewire.
== END 2019-12-12 12:58 | disposition home or self-care (01) ==
LOC: RADPROMAIN 10:49
PROVIDERS: ATTEND Radiology Diagnostic Radiology
DX: Z48.03 Encounter for change or removal of drains (principal); N13.1 Hydronephrosis with ureteral stricture, not elsewhere classified; I10 Essential (primary) hypertension; H91.90 Unspecified hearing loss, unspecified ear; Z87.442 Personal history of urinary calculi; Z98.890 Other specified postprocedural states; Z87.891 Personal history of nicotine dependence; Z85.828 Personal history of other malignant neoplasm of skin; Z80.8 Family history of malignant neoplasm of other organs or systems; Z80.0 Family history of malignant neoplasm of digestive organs; Z91.040 Latex allergy status; Z88.5 Allergy status to narcotic agent; Z88.6 Allergy status to analgesic agent
CPT/HCPCS: 50435; C1729; C1769 ×2; J1956; J2001; J3010

== ENCOUNTER 2019-12-19 15:25 | Day surgery (SDC) | payer BC ==
[2019-12-19 16:07] VITALS: BP 161/76; PULSE 76; RESP 14; TEMP 98.3
== END 2019-12-19 16:00 | disposition home or self-care (01) ==
LOC: RADPROMAIN 15:25
PROVIDERS: ATTEND Radiology Diagnostic Radiology
DX: Z48.03 Encounter for change or removal of drains (principal); Z88.5 Allergy status to narcotic agent; Z91.040 Latex allergy status
CPT/HCPCS: 99213

== ENCOUNTER 2019-12-26 15:30 | Day surgery (SDC) | payer BC ==
[2019-12-26 16:03] VITALS: BP 132/78; PULSE 71; RESP 16; TEMP 98.6
== END 2019-12-26 16:03 | disposition home or self-care (01) ==
LOC: RADPROMAIN 15:30
PROVIDERS: ATTEND Radiology Diagnostic Radiology
DX: Z09 Encounter for follow-up examination after completed treatment for conditions other than malignant neoplasm (principal)
CPT/HCPCS: 99213

== ENCOUNTER → 2020-01-02 | Day surgery (SDC) | payer BC ==
[2020-01-02 14:30] VITALS: BP 135/69; PULSE 74; RESP 18; TEMP 98.1
== END ==
LOC: RADPROMAIN 08:57
PROVIDERS: ATTEND Radiology Diagnostic Radiology
DX: Z48.03 Encounter for change or removal of drains (principal)
CPT/HCPCS: 99213

== ENCOUNTER 2020-01-09 15:41 | Day surgery (SDC) | payer BC ==
[2020-01-09 16:21] VITALS: BP 136/65; PULSE 78; RESP 16; TEMP 97.8
== END 2020-01-09 16:20 | disposition home or self-care (01) ==
LOC: RADPROMAIN 15:41
PROVIDERS: ATTEND Radiology Diagnostic Radiology
DX: Z48.03 Encounter for change or removal of drains (principal); Z93.6 Other artificial openings of urinary tract status
CPT/HCPCS: 99213

== ENCOUNTER 2020-01-16 15:45 | Day surgery (SDC) | payer BC ==
[2020-01-16 16:25] VITALS: BP 146/83; PULSE 55; RESP 16; TEMP 97.9
== END 2020-01-16 16:15 | disposition home or self-care (01) ==
LOC: RADPROMAIN 15:45
PROVIDERS: ATTEND Radiology Diagnostic Radiology
DX: Z48.03 Encounter for change or removal of drains (principal)
CPT/HCPCS: 99211; 99213

== ENCOUNTER 2020-01-23 15:39 | Day surgery (SDC) | payer BC ==
[2020-01-23 16:20] VITALS: BP 136/83; PULSE 66; RESP 16; TEMP 98.3
== END 2020-01-23 16:00 | disposition home or self-care (01) ==
LOC: RADPROMAIN 15:39
PROVIDERS: ATTEND Radiology Diagnostic Radiology
DX: Z48.03 Encounter for change or removal of drains (principal); Z93.6 Other artificial openings of urinary tract status
CPT/HCPCS: 99213

== ENCOUNTER 2020-01-30 15:16 | Day surgery (SDC) | payer BC ==
[2020-01-30 15:50] VITALS: BP 138/80; PULSE 68; RESP 18; TEMP 98.1
== END 2020-01-30 16:03 | disposition home or self-care (01) ==
LOC: RADPROMAIN 15:16
PROVIDERS: ATTEND Radiology Diagnostic Radiology
DX: Z48.03 Encounter for change or removal of drains (principal); Z43.6 Encounter for attention to other artificial openings of urinary tract

== ENCOUNTER → 2021-02-16 | Outpatient (CLI) | payer BC ==
--- NOTE | 2021-02-16 14:56 | XR ---
KUB HISTORY: N 20.0 Frontal KUB and 2 images correlated prior KUB 10/16/2019, CT 10/14/2019 Multiple calcifications are seen within the pelvis similar to prior exam. Bowel gas may obscure detai l. No pneumoperitoneum or bowel obstruction. Retained fecal debris present throughout the distributio n of the colon, correlate for fecal stasis. Suspect arthropathy within the hips. IMPRESSION: Multiple calcifications in the pelvis likely represent phleboliths. Limitations as descri bed.
== END | disposition home or self-care (01) ==
LOC: RADXRMAIN 10:41
PROVIDERS: ATTEND Urology
DX: N28.89 Other specified disorders of kidney and ureter (principal)
CPT/HCPCS: 74018

== ENCOUNTER → 2021-02-18 | Outpatient (CLI) | payer BC ==
--- NOTE | 2021-02-18 16:52 | CT ---
EXAMINATION TYPE: CT abdomen pelvis wo con DATE OF EXAM: 02/18/2021 COMPARISON: 10/14/2019 HISTORY: Renal colic. Pt c/o pain when bending or sitting. Other kidney removed last year CT DLP: 578.90 mGycm Examination of the solid and hollow viscera is limited given the lack of contrast. FINDINGS: LUNG BASES: No evidence for nodule. No evidence for infiltrate. LIVER/GB: The gallbladder is unremarkable. Renal cyst left hepatic lobe measuring 3.2 cm is redemonst rated. PANCREAS: No pancreatic mass identified. No inflammatory process seen. SPLEEN: No evidence for splenomegaly. No intrasplenic lesions seen. ADRENALS: No adrenal nodules identified. No evidence for thickening. KIDNEYS: The left kidney is absent. No evidence for renal mass. No nephrolithiasis. No hydronephrosis . BOWEL: Appendix has a normal appearance. No evidence of bowel obstruction. No inflammatory process. Lymph nodes: No evidence for adenopathy greater than 1 cm. Abdominal aorta: Atheromatous changes seen. No evidence for aneurysm. Genital organs: Prostate gland enlargement noted. Other: No significant abnormality. IMPRESSION: NO ACUTE PROCESS SEEN TO ACCOUNT FOR THE PATIENT'S SYMPTOMS.
== END | disposition home or self-care (01) ==
LOC: RADCTMAIN 16:01
PROVIDERS: ATTEND Urology
DX: N23 Unspecified renal colic (principal)
CPT/HCPCS: 74176

== ENCOUNTER → 2021-03-05 | Outpatient (CLI) | payer BC ==
--- NOTE | 2021-03-05 13:26 | XR ---
EXAM TYPE: LUMBAR SPINE X RAY SERIES COMPARISON: NONE HISTORY: Pain TECHNIQUE: 3 views are submitted. FINDINGS: Alignment is anatomic. The pedicles are intact. The transverse processes are intact. There is mult ilevel mild degenerative disc disease with multilevel facet arthropathy extending from levels L4-S1. Minimal anterolisthesis L5 on S1. Suspect foraminal encroachment L5-S1. Mild diffuse osteopenia. Nons pecific density left upper quadrant could relate to previous surgery. Correlate clinically. IMPRESSION: 1. Multilevel degenerative disc disease and facet arthropathy suspected foraminal encroachment L5-S1. Consider MRI follow-up.
== END | disposition home or self-care (01) ==
LOC: RADXRMAIN 13:05
PROVIDERS: ATTEND Family Medicine
DX: M51.37 Other intervertebral disc degeneration, lumbosacral region (principal); M47.817 Spondylosis without myelopathy or radiculopathy, lumbosacral region
CPT/HCPCS: 72100

== ENCOUNTER → 2021-03-24 | Outpatient (CLI) | payer BC ==
--- NOTE | 2021-03-24 08:58 | MR ---
EXAMINATION TYPE: MR lumbar spine wo con DATE OF EXAM: 03/24/2021 COMPARISON: NONE HISTORY: DDD Lumbar, back pain TECHNIQUE: T1 and T2 axial and sagittal images of the lumbar spine are submitted. FINDINGS: There is no abnormal signal seen within the visualized spinal cord or paraspinal soft tissu es. At L1-2 there is facet arthropathy and broad-based central circumferential disc bulging but no canal stenosis or focal herniation. Neural foramina patent. At L2-3 there is degenerative disc disease with broad-based central disc bulging and effacement of th ecal sac. Hypertrophic change of the facets. Mild bilateral foraminal encroachment. Borderline centra l stenosis with moderate degenerative disc disease. At L3-4 there is circumferential disc bulging. No canal stenosis. Ligamentum flavum hypertrophy and f acet arthropathy noted. Mild bilateral foraminal encroachment. At L4-5 there is circumferential disc bulging greater laterally to left. Mild left foraminal encroach ment. No nerve root contact seen. Facet arthropathy noted. Ligamentum flavum hypertrophy seen and the re is mild effacement of thecal sac. At L5-S1 there is facet arthropathy with no evidence of disc herniation, canal stenosis or foraminal encroachment. IMPRESSION: 1. Multilevel mild degenerative disc disease and facet arthropathy but no evidence of disc herniation . 2. Multilevel disc bulging with mild effacement of thecal sac as discussed above. Borderline centra l stenosis L2-L3.
== END | disposition home or self-care (01) ==
LOC: RADMRIMAIN 07:43
PROVIDERS: ATTEND Family Medicine
DX: M51.36 Other intervertebral disc degeneration, lumbar region (principal); M48.061 Spinal stenosis, lumbar region without neurogenic claudication; M51.26 Other intervertebral disc displacement, lumbar region; M47.816 Spondylosis without myelopathy or radiculopathy, lumbar region; M99.73 Connective tissue and disc stenosis of intervertebral foramina of lumbar region
CPT/HCPCS: 72148

== ENCOUNTER 2021-06-09 12:54 | Inpatient (IN) | payer BC, MEDICARE ==
[2021-06-09] MEDS ORDERED: AMPICILLIN-SULBACTAM 3 GM in SODIUM CHLORIDE 0.9% 100 ML IVPB STA (13:25)
--- NOTE | 2021-06-09 13:57 | ED ---
General Adult HPI - General Chief complaint: Skin/Abscess/Foreign Body Stated complaint: Rt Hand Infection/Arm Pain Time Seen by Provider: 06/09/21 13:12 Source: patient, RN notes reviewed Mode of arrival: ambulatory Limitations: no limitations - History of Present Illness Initial comments: This a 71-year-old male presents emergency Department with chief complaint of right hand infection. Patient states that he was bit by his cat on Monday he states he was seen at urgent care and antibiotics.patient states that symptoms are worsening. States that the pain was only in his hand along with redness but now has extended to his upper arm and into his armpit. Patient reports kind cold feeling with current temp 99.8 denies any other trauma. Patient does admit that his tetanus was updated at urgent care he has been taking his antibiotics as directed. He states his cat is up-to-date vaccinations. - Related Data Home Medications Medication Instructions Recorded Confirmed amLODIPine BESYLATE [Norvasc] 10 mg PO DAILY 11/28/19 01/23/20 Allergies Allergy/AdvReac Type Severity Reaction Status Date / Time acetaminophen [From Vicodin] Allergy Nausea & Verified 06/09/21 13:11 Vomiting hydrocodone Allergy Nausea & Verified 06/09/21 13:11 Vomiting latex Allergy Rash/Hives Verified 06/09/21 13:11 meperidine [From Demerol] Allergy Nausea & Verified 06/09/21 13:11 Vomiting Review of Systems ROS Statement: Those systems with pertinent positive or pertinent negative responses have been documented in the HPI. ROS Other: All systems not noted in ROS Statement are negative. Past Medical History Past Medical History: Cancer, Hearing Disorder / Deafness, Hypertension Additional Past Medical History / Comment(s): kidney stones, basal cell skin cancer on neck and scalp, [place] LEFT EAR ALMOST CANT HEAR ANYTHING, [place] RT, irregular heart beat History of Any Multi-Drug Resistant Organisms: None Reported Past Surgical History: Hernia Repair, Orthopedic Surgery Additional Past Surgical History / Comment(s): left knee arthroscopy, multiple Ureteral stent placement , LEFT INGUINAL HERNIA REPAIR Past Anesthesia/Blood Transfusion Reactions: Postoperative Nausea & Vomiting (PONV) Past Psychological History: No Psychological Hx Reported Smoking Status: Never smoker Past Alcohol Use History: Occasional Past Drug Use History: None Reported - Past Family History Father Family Medical History: Cancer Additional Family Medical History / Comment(s): melanoma Mother Family Medical History: Cancer Additional Family Medical History / Comment(s): colon cancer General Exam Limitations: no limitations General appearance: alert, in no apparent distress Head exam: Present: atraumatic, normocephalic, normal inspection Eye exam: Present: normal appearance, PERRL, EOMI. Absent: scleral icterus, conjunctival injection, periorbital swelling Respiratory exam: Present: normal lung sounds bilaterally. Absent: respiratory distress, wheezes, rales, rhonchi, stridor Cardiovascular Exam: Present: regular rate, normal rhythm, normal heart sounds. Absent: systolic murmur, diastolic murmur, rubs, gallop, clicks Extremities exam: Present: other (Right hand there is 2 puncture wounds noted, erythema and tenderness with palpation with streaking erythema to the forearm and upper arm tenderness to the right axilla) Skin exam: Present: warm, dry, intact, normal color. Absent: rash Course Vital Signs 06/09/21 13:06 Temperature 99.8 F H Pulse Rate 71 Respiratory 18 Rate Blood Pressure 145/73 O2 Sat by Pulse 97 Oximetry Medical Decision Making - Medical Decision Making 71-year-old male presented for infection to his right arm. Patient has failed outpatient treatment on oral antibiotics. Patiently will be admitted case discussed with Dr. Carrizales. - Lab Data Result diagrams: 06/09/21 13:24 Lab Results 06/09/21 06/09/21 Range/Units 13:24 13:24 WBC 7.4 (3.8-10.6) k/uL RBC 4.78 (4.30-5.90) m/uL Hgb 13.9 (13.0-17.5) gm/dL Hct 44.0 (39.0-53.0) % MCV 92.0 (80.0-100.0) fL MCH 29.2 (25.0-35.0) pg MCHC 31.7 (31.0-37.0) g/dL RDW 13.3 (11.5-15.5) % Plt Count 206 (150-450) k/uL MPV 10.2 Neutrophils % 74 % Lymphocytes % 15 % Monocytes % 7 % Eosinophils % 1 % Basophils % 0 % Neutrophils # 5.5 (1.3-7.7) k/uL Lymphocytes # 1.1 (1.0-4.8) k/uL Monocytes # 0.5 (0-1.0) k/uL Eosinophils # 0.1 (0-0.7) k/uL Basophils # 0.0 (0-0.2) k/uL Plasma Lactic Acid Vipul 1.2 (0.7-2.0) mmol/L Disposition Clinical Impression: Cat bite of right forearm with infection, Acute lymphangitis of right upper extremity Disposition: ADMITTED IP TO THIS HOSP Condition: Fair Referrals: Leonid Carrizales MD [Primary Care Provider] - 1-2 days
[2021-06-09 14:00] LABS: Basophils % (A) 0 %; Eosinophils # (A) 0.1 k/uL (0-0.7); Eosinophils % (A) 1 %; HGB 13.9 gm/dL (13.0-17.5); Lymphocytes # (A) 1.1 k/uL (1.0-4.8); Lymphocytes % (A) 15 %; MCH 29.2 pg (25.0-35.0); MCHC 31.7 g/dL (31.0-37.0); Mean Platelet Volume 10.2; Monocytes # (A) 0.5 k/uL (0-1.0); Monocytes % (A) 7 %; Neutrophils # (A) 5.5 k/uL (1.3-7.7); Neutrophils % (A) 74 %; Platelet Count 206 k/uL (150-450); RBC 4.78 m/uL (4.30-5.90); RDW 13.3 % (11.5-15.5); WBC 7.4 k/uL (3.8-10.6)
[2021-06-09] MEDS ORDERED: ONDANSETRON 4 MG/2 ML VIAL IVP PRN (14:14)
[2021-06-09] MEDS ORDERED: ACETAMINOPHEN TAB 325 MG TAB PO PRN (14:14)
[2021-06-09] MEDS ORDERED: IBUPROFEN 400 MG TAB PO PRN (14:14)
[2021-06-09] MEDS ORDERED: NALOXONE 0.4 MG/ML 1 ML VIAL IV PRN (14:14)
[2021-06-09 14:16] LABS: Albumin 4.1 g/dL (3.5-5.0); C Reactive Protein 3.8 mg/dL (<1.0); Calcium 8.9 mg/dL (8.4-10.2); Potassium 4.4 mmol/L (3.5-5.1); Total Bilirubin 0.9 mg/dL (0.2-1.3)
[2021-06-09] MEDS: AMPICILLIN-SULBACTAM 3 GM in SODIUM CHLORIDE 0.9% 100 ML IVPB SCH (19:45)
[2021-06-10] MEDS: AMPICILLIN-SULBACTAM 3 GM in SODIUM CHLORIDE 0.9% 100 ML IVPB SCH ×4 (00:12→17:57)
[2021-06-10 07:17] LABS: HCT 43.5 % (39.0-53.0); HGB 14.1 gm/dL (13.0-17.5); MCH 29.6 pg (25.0-35.0); MCHC 32.3 g/dL (31.0-37.0); MCV 91.8 fL (80.0-100.0); Mean Platelet Volume 10.1; Platelet Count 195 k/uL (150-450); RBC 4.74 m/uL (4.30-5.90); RDW 13.3 % (11.5-15.5); WBC 6.4 k/uL (3.8-10.6)
--- NOTE | 2021-06-10 08:46 | P.HPIM ---
History of Present Illness H&P Date: 06/10/21 Chief Complaint: Hand pain The patient is 71-year-old white male with known history of Bite. The patient was placed on Augmentin as an outpatient therapy and essentially failed outpatient therapy. Started having streak of redness on the right upper extremity. The cat is personal indoor pet. Review of Systems Constitutional: Reports fever, Denies chills Ears, nose, mouth and throat: Denies headache, Denies sore throat Cardiovascular: Denies chest pain, Denies shortness of breath Respiratory: Denies cough Gastrointestinal: Denies abdominal pain, Denies diarrhea, Denies nausea, Denies vomiting Musculoskeletal: Denies myalgias Integumentary: Reports as per HPI, Reports rash, Denies pruritus Neurological: Denies numbness, Denies weakness Past Medical History Past Medical History: Cancer, Hearing Disorder / Deafness, Hypertension Additional Past Medical History / Comment(s): kidney stones, basal cell skin cancer on neck and scalp, [place] LEFT [place]AR ALMOST CANT HEAR ANYTHING, [place] RT, irregular heart beat History of Any Multi-Drug Resistant Organisms: None Reported Past Surgical History: Hernia Repair, Orthopedic Surgery Additional Past Surgical History / Comment(s): Nephrectomy with nephrostomy 2018, left knee arthroscopy, multiple Ureteral stent placement , LEFT INGUINAL HERNIA REPAIR Past Anesthesia/Blood Transfusion Reactions: Postoperative Nausea & Vomiting (PONV) Past Psychological History: No Psychological Hx Reported Smoking Status: Former smoker Past Alcohol Use History: Occasional Additional Past Alcohol Use History / Comment(s): quit smoking 1971, smoked for 4 yrs Past Drug Use History: None Reported - Past Family History Father Family Medical History: Cancer Additional Family Medical History / Comment(s): melanoma Mother Family Medical History: Cancer Additional Family Medical History / Comment(s): colon cancer Medications and Allergies Home Medications Medication Instructions Recorded Confirmed Type amLODIPine BESYLATE [Norvasc] 10 mg PO DAILY 11/28/19 06/09/21 History Amoxic-Pot Clav 500-125 mg 1 tab PO Q12H 06/09/21 06/09/21 History [Augmentin 500-125 mg] Losartan [Cozaar] 25 mg PO HS 06/09/21 06/09/21 History Multivit-Min/FA/Lycopen/Lutein 1 tab PO DAILY 06/09/21 06/09/21 History [Centrum Silver Tablet] Neuriva Brain Support 1 cap PO HS 06/09/21 06/09/21 History Allergies Allergy/AdvReac Type Severity Reaction Status Date / Time hydrocodone Allergy Nausea & Verified 06/09/21 14:30 Vomiting latex Allergy Rash/Hives Verified 06/09/21 14:30 meperidine [From Demerol] Allergy Nausea & Verified 06/09/21 14:30 Vomiting Physical Exam Vitals: Vital Signs Temp Pulse Pulse Resp BP BP Pulse Ox 06/10/21 05:00 99.0 F 69 18 124/55 95 06/09/21 19:57 99.0 F 66 18 128/61 97 06/09/21 19:27 16 06/09/21 17:33 16 06/09/21 15:29 98.6 F 57 L 16 149/76 99 06/09/21 13:06 99.8 F H 71 18 145/73 97 Intake and Output 06/09/21 06/10/21 06/10/21 22:59 06:59 14:59 Intake Total 600 500 Balance 600 500 Intake: Oral 600 500 Other: Voiding Method Toilet # Voids 1 2 Weight 87.09 kg - Constitutional General appearance: no acute distress - EENT Eyes: EOMI - Neck Neck: no lymphadenopathy - Respiratory Respiratory: bilateral: CTA - Cardiovascular Rhythm: regular Heart sounds: normal: S1, S2 Abnormal Heart Sounds: no S3 Gallop - Gastrointestinal General gastrointestinal: soft, no tenderness - Integumentary Right hand and forearm with cellulitis and puncture wound noted from Bite. Integumentary: cellulitis - Psychiatric Psychiatric: A&O x's 3 Results CBC & Chem 7: 06/10/21 06:50 06/09/21 13:24 Labs: Abnormal Lab Results - Last 24 Hours (Table) 06/09/21 Range/Units 13:24 Glucose 158 H (74-99) mg/dL C-Reactive Protein 3.8 H (<1.0) mg/dL Assessment and Plan (1) Acute lymphangitis of right upper extremity Current Visit: Yes Status: Acute Code(s): L03.123 - ACUTE LYMPHANGITIS OF RIGHT UPPER LIMB SNOMED Code(s): 2015187 (2) Cat bite of right forearm with infection Current Visit: Yes Status: Acute Code(s): S51.851A - OPEN BITE OF RIGHT FOREARM, INITIAL ENCOUNTER; L08.9 - LOCAL INFECTION OF THE SKIN AND SUBCUTANEOUS TISSUE, UNSP; W55.01XA - BITTEN BY CAT, INITIAL ENCOUNTER SNOMED Code(s): 856877896 Plan: The patient will be placed on empiric antibiotic treatment since failure on Augmentin. Reconcile home medications. Consult infectious disease. If worsens, consider orthopedic evaluation for I&D. Check CBC and CMP in a.m.
[2021-06-10 09:31] LABS: ALT 23 U/L (4-49); AST 29 U/L (17-59); African American GFR (CKD) >90 (>60 ml/min/1.73 sqM); Albumin 3.5 g/dL (3.5-5.0); Albumin/Globulin Ratio 1.2; Alkaline Phosphatase 76 U/L (38-126); Anion Gap 6 mmol/L; Blood Urea Nitrogen 15 mg/dL (9-20); Calcium 8.8 mg/dL (8.4-10.2); Carbon Dioxide 27 mmol/L (22-30); Chloride 105 mmol/L (98-107); Globulin 2.9 g/dL; Glucose 108 mg/dL (74-99); Non-African American GFR(CKD) 81 (>60 ml/min/1.73 sqM); Potassium 4.6 mmol/L (3.5-5.1); Sodium 138 mmol/L (137-145); Total Bilirubin 1.1 mg/dL (0.2-1.3); Total Protein 6.4 g/dL (6.3-8.2)
[2021-06-10] MEDS: amLODIPine 10 MG TAB PO SCH (10:26)
[2021-06-10] MEDS: MULTIVITAMINS, THERA 1 EACH TAB PO SCH (10:26)
[2021-06-10] MEDS: LOSARTAN 25 MG TAB PO SCH (20:35)
[2021-06-10] MEDS: [UNRECOGNIZED DRUG - OTHER] PO SCH (22:08)
--- NOTE | 2021-06-11 00:02 | P.CONS ---
History of Present Illness - Reason for Consult Consult date: 06/10/21 Cat-bite cellulitis Requesting physician: Leonid Carrizales - Chief Complaint right hand pain and redness x few days - History of Present Illness Patient is a 71-year-old male presenting to the ER yesterday afternoon for evaluation of right hand infection the patient symptoms started about 3 days ago and the patient was bitten by his cat on Monday patient did have minimal bleeding initially and the patient cleaned his hand with peroxide and water next morning the patient woke up with swelling tenderness to the left hand patient was seen at the urgent care and was started on some oral biotic however the patient did have worsening of the swelling and redness of the right hand with redness extending to the right forearm that concern the patient him becoming of pain into the right hand tomorrow with a leaking about 4-5 degeneration with associated swelling redness and no drainage and was seen the patient was in the hospital on arrival to the ER the patient did have a leaflet of 99.81 height patient did have a normal white count electrolyte has been normal blood culture has been in remission currently pending patient was started on Unasyn has been admitted to the hospital infectious disease was consulted for further management of antibiotic therapy Review of Systems Positive point has been mentioned in the HPI rest of the systems are negative Past Medical History Past Medical History: Cancer, Hearing Disorder / Deafness, Hypertension Additional Past Medical History / Comment(s): kidney stones, basal cell skin cancer on neck and scalp, [place] LEFT EAR ALMOST CANT HEAR ANYTHING, [place] RT, irregular heart beat History of Any Multi-Drug Resistant Organisms: None Reported Past Surgical History: Hernia Repair, Orthopedic Surgery Additional Past Surgical History / Comment(s): Nephrectomy with nephrostomy 2018, left knee arthroscopy, multiple Ureteral stent placement , LEFT INGUINAL HERNIA REPAIR Past Anesthesia/Blood Transfusion Reactions: Postoperative Nausea & Vomiting (PONV) Past Psychological History: No Psychological Hx Reported Smoking Status: Former smoker Past Alcohol Use History: Occasional Additional Past Alcohol Use History / Comment(s): quit smoking 1971, smoked for 4 yrs Past Drug Use History: None Reported - Past Family History Father Family Medical History: Cancer Additional Family Medical History / Comment(s): melanoma Mother Family Medical History: Cancer Additional Family Medical History / Comment(s): colon cancer Medications and Allergies Home Medications Medication Instructions Recorded Confirmed Type amLODIPine BESYLATE [Norvasc] 10 mg PO DAILY 11/28/19 06/09/21 History Amoxic-Pot Clav 500-125 mg 1 tab PO Q12H 06/09/21 06/09/21 History [Augmentin 500-125 mg] Losartan [Cozaar] 25 mg PO HS 06/09/21 06/09/21 History Multivit-Min/FA/Lycopen/Lutein 1 tab PO DAILY 06/09/21 06/09/21 History [Centrum Silver Tablet] Neuriva Brain Support 1 cap PO HS 06/09/21 06/09/21 History Allergies Allergy/AdvReac Type Severity Reaction Status Date / Time hydrocodone Allergy Nausea & Verified 06/09/21 14:30 Vomiting latex Allergy Rash/Hives Verified 06/09/21 14:30 meperidine [From Demerol] Allergy Nausea & Verified 06/09/21 14:30 Vomiting Physical Exam Vitals: Vital Signs Temp Pulse Pulse Resp BP BP Pulse Ox 06/10/21 05:00 99.0 F 69 18 124/55 95 06/09/21 19:57 99.0 F 66 18 128/61 97 06/09/21 19:27 16 06/09/21 17:33 16 06/09/21 15:29 98.6 F 57 L 16 149/76 99 06/09/21 13:06 99.8 F H 71 18 145/73 97 Intake and Output 06/09/21 06/10/21 06/10/21 22:59 06:59 14:59 Intake Total 600 500 Balance 600 500 Intake: Oral 600 500 Other: Voiding Method Toilet # Voids 1 2 Weight 87.09 kg GENERAL DESCRIPTION: An elderly male lying in bed, no distress. No tachypnea or accessory muscle of respiration use. HEENT: Shows Pallor , no scleral icterus. Oral mucous membrane is dry. No pharyngeal erythema or thrush NECK: Trachea central, no thyromegaly. LUNGS: Unlabored breathing. Clear to auscultation anteriorly. No wheeze or crackle. HEART: S1, S2, regular rate and rhythm. No loud murmur ABDOMEN: Soft, no tenderness , guarding or rigidity, no organomegaly EXTREMITIES: No edema of feet. SKIN: No rash, no masses palpable. NEUROLOGICAL: The patient is awake, alert, oriented x3, mood and affect normal. Results CBC & Chem 7: 06/10/21 06:50 06/10/21 06:50 Labs: Abnormal Lab Results - Last 24 Hours (Table) 06/09/21 06/10/21 Range/Units 13:24 06:50 Glucose 158 H 108 H (74-99) mg/dL C-Reactive Protein 3.8 H (<1.0) mg/dL Assessment and Plan Assessment: 1-patient with her right hand cat bite cellulitis with ascending, lymphangitis involving the right forearm and need to cover for the oral rosario of the Wound including both aerobes and anaerobes in this patient failing outpatient oral biotherapy likely from the burden of disease as no evidence of any drainable abscess (1) Acute lymphangitis of right upper extremity Current Visit: Yes Status: Acute Code(s): L03.123 - ACUTE LYMPHANGITIS OF RIGHT UPPER LIMB SNOMED Code(s): 6127417 (2) Cat bite of right forearm with infection Current Visit: Yes Status: Acute Code(s): S51.851A - OPEN BITE OF RIGHT FOREARM, INITIAL ENCOUNTER; L08.9 - LOCAL INFECTION OF THE SKIN AND SUBCUTANEOUS TISSUE, UNSP; W55.01XA - BITTEN BY CAT, INITIAL ENCOUNTER SNOMED Code(s): 705512786 Plan: 1-Unasyn 3 g every 6 hours 2-monitor the area of the redness 3- cultures if the area start to drain We will follow on clinical condition and cultures to further adjust medication if needed Thank you for this consultation we will follow the patient along with you Time with Patient: Greater than 30
[2021-06-11] MEDS: AMPICILLIN-SULBACTAM 3 GM in SODIUM CHLORIDE 0.9% 100 ML IVPB SCH ×4 (00:11→17:45)
[2021-06-11 06:25] LABS: HCT 42.4 % (39.0-53.0); MCH 29.7 pg (25.0-35.0); MCHC 32.9 g/dL (31.0-37.0); MCV 90.1 fL (80.0-100.0); Platelet Count 184 k/uL (150-450); RDW 12.6 % (11.5-15.5); WBC 5.8 k/uL (3.8-10.6)
[2021-06-11 06:44] LABS: ALT 29 U/L (4-49); AST 33 U/L (17-59); African American GFR (CKD) 84 (>60 ml/min/1.73 sqM); Albumin 3.6 g/dL (3.5-5.0); Albumin/Globulin Ratio 1.3; Alkaline Phosphatase 75 U/L (38-126); Anion Gap 6 mmol/L; Blood Urea Nitrogen 15 mg/dL (9-20); Calcium 8.9 mg/dL (8.4-10.2); Carbon Dioxide 29 mmol/L (22-30); Chloride 104 mmol/L (98-107); Globulin 2.8 g/dL; Glucose 117 mg/dL (74-99); Non-African American GFR(CKD) 73 (>60 ml/min/1.73 sqM); Potassium 4.7 mmol/L (3.5-5.1); Sodium 139 mmol/L (137-145); Total Bilirubin 0.5 mg/dL (0.2-1.3); Total Protein 6.4 g/dL (6.3-8.2)
--- NOTE | 2021-06-11 08:56 | P.PN ---
Subjective Principal diagnosis: Cat Bite. The patient is 71year-old white male essentially with cellulitis of the right hand and arm related to feline Bite. Significant improvement a Unasyn is noted. Appreciate ID support. Range of motion is improving and the hand. Objective - Vital Signs Vital signs: Vital Signs Temp 98.4 F 06/11/21 04:10 Pulse 67 06/11/21 04:10 Resp 16 06/11/21 04:10 BP 144/82 06/11/21 04:10 Pulse Ox 98 06/11/21 04:10 Intake & Output 06/10/21 06/11/21 06/11/21 18:59 06:59 18:59 Intake Total 100 Balance 100 Intake: Intake, IV Titration 100 Amount Ampicillin-Sulbactam 3 gm 100 In Sodium Chloride 0.9% 100 ml @ 200 mls/hr IVPB Q6HR [facility] Rx#:[id number] Other: Voiding Method Toilet # Voids 1 - Constitutional General appearance: Present: average body habitus - EENT Eyes: Absent: abnormal pupil - Respiratory Respiratory: bilateral: CTA - Cardiovascular Rhythm: regular Heart sounds: normal: S1, S2 Abnormal Heart Sounds: Absent: S3 Gallop - Gastrointestinal General gastrointestinal: Present: soft. Absent: tenderness - Integumentary Integumentary Comment(s): Improving right hand cellulitis with abscess Integumentary: Present: cellulitis - Labs CBC & Chem 7: 06/11/21 05:38 06/11/21 05:38 Labs: Abnormal Lab Results - Last 24 Hours (Table) 06/10/21 06/11/21 Range/Units 06:50 05:38 Glucose 108 H 117 H (74-99) mg/dL Microbiology - Last 24 Hours (Table) 06/09/21 13:40 Blood Culture - Preliminary Blood No Growth after 24 hours 06/09/21 13:25 Blood Culture - Preliminary Blood No Growth after 24 hours Assessment and Plan (1) Acute lymphangitis of right upper extremity Current Visit: Yes Status: Acute Code(s): L03.123 - ACUTE LYMPHANGITIS OF RIGHT UPPER LIMB SNOMED Code(s): 1736200 (2) Cat bite of right forearm with infection Current Visit: Yes Status: Acute Code(s): S51.851A - OPEN BITE OF RIGHT FOREARM, INITIAL ENCOUNTER; L08.9 - LOCAL INFECTION OF THE SKIN AND SUBCUTANEOUS TISSUE, UNSP; W55.01XA - BITTEN BY CAT, INITIAL ENCOUNTER SNOMED Code(s): 630460307 Plan: The patient will be placed on empiric antibiotic treatment since failure on Augmentin. Reconcile home medications. Consult infectious disease. If worsens, consider orthopedic evaluation for I&D. Check CBC and CMP in a.m.
[2021-06-11] MEDS: MULTIVITAMINS, THERA 1 EACH TAB PO SCH (08:57)
[2021-06-11] MEDS: amLODIPine 10 MG TAB PO SCH (08:57)
[2021-06-11] MEDS ORDERED: LIDOCAINE 1% INJ 10MG/ML (20 ML MDV) SQ ONE (15:47)
--- NOTE | 2021-06-11 15:51 | P.CNOR ---
History of Present Illness - HPI Consult date: 06/11/21 Consult reason: other (Right hand cat bite) History of present illness: The patient is a very pleasant 71-year-old male who presented to the emergency department 2 days ago after sustaining a cat bite to the right hand last Monday. He was seen at urgent care after the bite and was given oral antibiotics. Redness and pain in the right arm started in the arm on Monday and he went to the emergency department. He is admitted for IV antibiotics. The patient states the redness and pain in the arm has improved since IV antibiotics as started. This morning, the patient states that he was in the shower and the wound opened up and started draining. He wound culture was taken earlier today and is currently pending. The patient is being closely followed by internal medicine and infectious disease. He denies any fevers but did state that he had a low-grade fever while in the hospital. He denies any specific chills but does state he has had night sweats since this started. He states that he has had finger stiffness since the swelling started but denies numbness. The patient is currently receiving Unasyn. Orthopedics was consulted for further evaluation and possible I&D of the right hand. Review of Systems Constitutional: Reports night sweats, Denies chills, Denies fever Cardiovascular: Denies chest pain, Denies shortness of breath Respiratory: Denies cough Gastrointestinal: Denies diarrhea, Denies nausea, Denies vomiting Musculoskeletal: right: hand pain, hand stiffness, hand swelling Past Medical History Past Medical History: Cancer, Hearing Disorder / Deafness, Hypertension Additional Past Medical History / Comment(s): kidney stones, basal cell skin cancer on neck and scalp, [place] LEFT EAR ALMOST CANT HEAR ANYTHING, [place] RT, irregular heart beat History of Any Multi-Drug Resistant Organisms: None Reported Past Surgical History: Hernia Repair, Orthopedic Surgery Additional Past Surgical History / Comment(s): Nephrectomy with nephrostomy 2018, left knee arthroscopy, multiple Ureteral stent placement , LEFT INGUINAL HERNIA REPAIR Past Anesthesia/Blood Transfusion Reactions: Postoperative Nausea & Vomiting (PONV) Past Psychological History: No Psychological Hx Reported Smoking Status: Former smoker Past Alcohol Use History: Occasional Additional Past Alcohol Use History / Comment(s): quit smoking 1971, smoked for 4 yrs Past Drug Use History: None Reported - Past Family History Father Family Medical History: Cancer Additional Family Medical History / Comment(s): melanoma Mother Family Medical History: Cancer Additional Family Medical History / Comment(s): colon cancer Medications and Allergies Home Medications Medication Instructions Recorded Confirmed Type amLODIPine BESYLATE [Norvasc] 10 mg PO DAILY 11/28/19 06/09/21 History Amoxic-Pot Clav 500-125 mg 1 tab PO Q12H 06/09/21 06/09/21 History [Augmentin 500-125 mg] Losartan [Cozaar] 25 mg PO HS 06/09/21 06/09/21 History Multivit-Min/FA/Lycopen/Lutein 1 tab PO DAILY 06/09/21 06/09/21 History [Centrum Silver Tablet] Neuriva Brain Support 1 cap PO HS 06/09/21 06/09/21 History Allergies Allergy/AdvReac Type Severity Reaction Status Date / Time hydrocodone Allergy Nausea & Verified 06/09/21 14:30 Vomiting latex Allergy Rash/Hives Verified 06/09/21 14:30 meperidine [From Demerol] Allergy Nausea & Verified 06/09/21 14:30 Vomiting Physical Examination The patient is a 71-year-old male in no acute distress. He is alert and oriented 3. Exam of the right hand reveals localized swelling to the dorsal aspect of the right hand. There is a small open wound that is draining clear fluid between the second and third MCP joints. There is pain upon palpation to the second and third MCP joints and upon range of motion of the right index and middle fingers. No evidence of tendon sheath or deep infection at this time. No purulence noted. Circulatory and neurological status is intact. Results No x-rays were taken here. - Labs Labs: Abnormal Lab Results - Last 24 Hours (Table) 06/11/21 Range/Units 05:38 Glucose 117 H (74-99) mg/dL Microbiology - Last 24 Hours (Table) 06/09/21 13:40 Blood Culture - Preliminary Blood No Growth after 24 hours 06/09/21 13:25 Blood Culture - Preliminary Blood No Growth after 24 hours H & H 06/09/21 06/10/21 06/11/21 Range/Units 13:24 06:50 05:38 Hgb 13.9 14.1 14.0 (13.0-17.5) gm/dL Hct 44.0 43.5 42.4 (39.0-53.0) % Result Diagrams: 06/11/21 05:38 06/11/21 05:38 Assessment and Plan (1) Cat bite of right hand with infection Current Visit: Yes Status: Acute Code(s): S61.451A - OPEN BITE OF RIGHT HAND, INITIAL ENCOUNTER; L08.9 - LOCAL INFECTION OF THE SKIN AND SUBCUTANEOUS TISSUE, UNSP; W55.01XA - BITTEN BY CAT, INITIAL ENCOUNTER SNOMED Code(s): 530104173 (2) Acute lymphangitis of right upper extremity Current Visit: Yes Status: Acute Code(s): L03.123 - ACUTE LYMPHANGITIS OF RIGHT UPPER LIMB SNOMED Code(s): 5693322 Plan: The clinical findings were discussed with the patient. The case was discussed at length with Dr. Perez Lira. A bedside I&D is recommended at this time and the patient agrees to the procedure. The patient was given an option for local lidocaine to the area but he declines. Bedside procedure: The patient and site was confirmed with the patient and nursing staff. The skin was prepped with ChloraPrep and using a 11 blade the skin was opened right over the small wound on the dorsal aspect of the right hand. There was some slight clear fluid expressed from the small wound area and there was immediate and alicia ropriate amount of blood return. No obvious purulence noted. Culture was taken and the wound was redressed using a Telfa, 4 x 4's, and gauze roll. A warm compress was applied. The patient tolerated the procedure well. The patient will continue IV Unasyn as directed by infectious disease. Moist heat has been ordered. We will await culture results and clinical improvement. There has been a CT of the right hand ordered to assess for deeper abscess. The dressing may be changed if needed overnight for drainage, otherwise the dressing will be changed by orthopedics tomorrow. We will continue to follow patient closely and make further recommendations as needed.
--- NOTE | 2021-06-11 17:46 | PN ---
PROGRESS NOTE DATE OF SERVICE: 06/11/2021 REASON FOR FOLLOWUP: Right hand cat bite cellulitis and concern for possible abscess. INTERVAL HISTORY: The patient is afebrile. He still has significant swelling of the right hand dorsum area with minimal drainage. Denies any chest pain, shortness of breath or cough. No abdominal pain or diarrhea. PHYSICAL EXAMINATION: Blood pressure 137/68, pulse of 48, temperature 98. He is 98% on room air. General description is an elderly male up in the bed in no distress. Respiratory system: Unlabored breathing, is clear to auscultation anteriorly. Heart S1, S2. Regular rate and rhythm. Abdomen soft, no tenderness. Right hand did have significant swelling and redness. DIAGNOSTIC IMPRESSION AND PLAN: Patient with right hand cat bite cellulitis, concern for underlying abscess ( ). orthopedic consult for drainage of the abscess and deep cultures. Continue with Unasyn. MMODL / IJN: [id number] /
--- NOTE | 2021-06-11 19:51 | CT ---
EXAMINATION TYPE: CT hand RT w con DATE OF EXAM: 06/11/2021 COMPARISON: HISTORY: Abscess, RT hand due to cat bite. CT DLP: 209.90 mGycm Automated exposure control for dose reduction was used. CONTRAST: Performed with IV Contrast, patient injected with 100 mL of Isovue 300. Images were obtained from the distal radius to the tip of the fingers with IV contrast. There is narrowing and spurring at the first carpometacarpal joint. The metacarpals are intact. I see no fracture nor dislocation. The fingers appear intact. There is some subcutaneous edema on the ante rior aspect of the mid and distal metacarpals. I see no discrete drainable fluid collection. There is soft tissue swelling on the dorsum of the hand at the second and third distal metacarpals. I see no focal bone destruction. Distal radius and ulna are intact. The carpal bones appear intact. IMPRESSION: Soft tissue swelling around the hand. No discrete drainable fluid collection identified. No fracture. No sign of osteomyelitis.
[2021-06-11] MEDS: [UNRECOGNIZED DRUG - OTHER] PO SCH (20:10)
[2021-06-11] MEDS: LOSARTAN 25 MG TAB PO SCH (20:10)
[2021-06-12] MEDS: AMPICILLIN-SULBACTAM 3 GM in SODIUM CHLORIDE 0.9% 100 ML IVPB SCH ×4 (00:06→17:05)
[2021-06-12 06:32] LABS: HCT 43.8 % (39.0-53.0); HGB 14.5 gm/dL (13.0-17.5); MCH 29.4 pg (25.0-35.0); MCHC 33.1 g/dL (31.0-37.0); MCV 88.8 fL (80.0-100.0); Platelet Count 216 k/uL (150-450); RBC 4.93 m/uL (4.30-5.90); RDW 12.7 % (11.5-15.5); WBC 5.3 k/uL (3.8-10.6)
[2021-06-12] MEDS: amLODIPine 10 MG TAB PO SCH (08:21)
[2021-06-12] MEDS: MULTIVITAMINS, THERA 1 EACH TAB PO SCH (08:21)
[2021-06-12 09:12] LABS: African American GFR (CKD) 78.4 (60.0-200.0); Albumin 3.8 g/dL (3.80-4.90); Albumin/Globulin Ratio 1.41 (1.60-3.17); Anion Gap 7.9 mmol/L (4.00-12.00); BUN/Creat Ratio 11.82 Ratio (12.00-20.00); Calcium 8.7 mg/dL (8.7-10.3); Carbon Dioxide 27.1 mmol/L (21.6-31.8); Globulin 2.7 g/dL (1.6-3.3); Non-African American GFR(CKD) 67.7 (60.0-200.0); Potassium 4.4 mmol/L (3.5-5.5); Total Bilirubin 0.6 mg/dL (0.3-1.2); Total Protein 6.5 g/dL (6.2-8.2)
--- NOTE | 2021-06-12 10:10 | P.PN ---
<Carmen Brown J - Last Filed: 06/12/21 10:10> Subjective Progress Note Date: 06/12/21 Principal diagnosis: Right hand cat bite The patient is a very pleasant 71-year-old male who presented to the emergency department 2 days ago after sustaining a cat bite to the right hand last Monday. He was seen at urgent care after the bite and was given oral antibiotics. Redness and pain in the right arm started in the arm on Monday and he went to the emergency department. He is admitted for IV antibiotics. The patient states the redness and pain in the arm has improved since IV antibiotics as started. This morning, the patient states that he was in the shower and the wound opened up and started draining. He wound culture was taken earlier today and is currently pending. The patient is being closely followed by internal medicine and infectious disease. He denies any fevers but did state that he had a low-grade fever while in the hospital. He denies any specific chills but does state he has had night sweats since this started. He states that he has had finger stiffness since the swelling started but denies numbness. The patient is currently receiving Unasyn. Orthopedics was consulted for further evaluation and possible I&D of the right hand. 06/12/2021: The patient was evaluated at the bedside with Dr. Lira this morning. He states his hand is feeling better since the bedside I&D yesterday. He denies any recent fever or chills. The swelling in the palm side of the hand is improving according to the patient. No new complaints today. Cultures are pending. CT of the hand reveals no deep fluid collection. Objective - Vital Signs Vital signs: Vital Signs Temp 98.8 F 06/12/21 04:30 Pulse 65 06/12/21 04:30 Resp 20 06/12/21 04:30 BP 134/77 06/12/21 04:30 Pulse Ox 98 06/12/21 04:30 Intake & Output 06/11/21 06/12/21 06/12/21 18:59 06:59 18:59 Intake Total 680 1120 Balance 680 1120 Intake: Intake, IV Titration 200 200 Amount Ampicillin-Sulbactam 3 gm 200 200 In Sodium Chloride 0.9% 100 ml @ 200 mls/hr IVPB Q6HR [facility] Rx#:[id number] Oral 480 920 Other: Voiding Method Toilet # Voids 2 1 - Exam The patient is a 71-year-old male in no acute distress. He is alert and oriented 3. Exam of the right hand reveals localized swelling to the dorsal aspect of the right hand. The open wound has some maceration to the periwound area but the swelling and redness has improved. There is pain upon palpation to the second and third MCP joints and upon range of motion of the right index and middle fingers. No evidence of tendon sheath or deep infection at this time. No purulence noted. Circulatory and neurological status is intact. - Labs CBC & Chem 7: 06/12/21 06:05 06/12/21 06:05 Labs: Abnormal Lab Results - Last 24 Hours (Table) 06/12/21 Range/Units 06:05 BUN/Creatinine Ratio 11.82 L (12.00-20.00) Ratio Glucose 115 H (70-110) mg/dL Albumin/Globulin Ratio 1.41 L (1.60-3.17) g/dL Microbiology - Last 24 Hours (Table) 06/11/21 12:45 Gram Stain - Preliminary Hand - Right Wound Culture - Preliminary 06/11/21 16:00 Wound Culture - Preliminary Hand - Right 06/09/21 13:40 Blood Culture - Preliminary Blood No Growth after 48 hours 06/09/21 13:25 Blood Culture - Preliminary Blood No Growth after 48 hours Assessment and Plan (1) Cat bite of right hand with infection Current Visit: Yes Status: Acute Code(s): S61.451A - OPEN BITE OF RIGHT HAND, INITIAL ENCOUNTER; L08.9 - LOCAL INFECTION OF THE SKIN AND SUBCUTANEOUS TISSUE, UNSP; W55.01XA - BITTEN BY CAT, INITIAL ENCOUNTER SNOMED Code(s): 364391986 (2) Acute lymphangitis of right upper extremity Current Visit: Yes Status: Acute Code(s): L03.123 - ACUTE LYMPHANGITIS OF RIGHT UPPER LIMB SNOMED Code(s): 6380389 Plan: The clinical findings were discussed with the patient. The case was discussed at length with Dr. Perez Lira. The patient will continue IV Unasyn as directed by infectious disease. Moist heat has been ordered. We will await culture results and continued clinical improvement. The patient may wash his hand with soap and water normally and allow the wound to dry out a little more then a dressing may be applied by nursing later this morning. When antibiotics are decided on by infectious disease, the patient may continue local wound care at home and may be discharged home from an orthopedic standpoint. We will continue to follow patient closely and make further recommendations as needed. <Kraig Lira - Last Filed: 06/12/21 10:30> Objective - Vital Signs Vital signs: Vital Signs Temp 98.8 F 06/12/21 04:30 Pulse 65 06/12/21 04:30 Resp 20 06/12/21 04:30 BP 134/77 06/12/21 04:30 Pulse Ox 98 06/12/21 04:30 Intake & Output 06/11/21 06/12/21 06/12/21 18:59 06:59 18:59 Intake Total 680 1120 Balance 680 1120 Intake: Intake, IV Titration 200 200 Amount Ampicillin-Sulbactam 3 gm 200 200 In Sodium Chloride 0.9% 100 ml @ 200 mls/hr IVPB Q6HR [facility] Rx#:[id number] Oral 480 920 Other: Voiding Method Toilet # Voids 2 1 - Labs CBC & Chem 7: 06/12/21 06:05 06/12/21 06:05 Labs: Abnormal Lab Results - Last 24 Hours (Table) 06/12/21 Range/Units 06:05 BUN/Creatinine Ratio 11.82 L (12.00-20.00) Ratio Glucose 115 H (70-110) mg/dL Albumin/Globulin Ratio 1.41 L (1.60-3.17) g/dL Microbiology - Last 24 Hours (Table) 06/11/21 12:45 Gram Stain - Preliminary Hand - Right Wound Culture - Preliminary 06/11/21 16:00 Wound Culture - Preliminary Hand - Right 06/09/21 13:40 Blood Culture - Preliminary Blood No Growth after 48 hours 06/09/21 13:25 Blood Culture - Preliminary Blood No Growth after 48 hours Assessment and Plan Plan: The patient is seen and examined at bedside with Carmen Gooden RPA and I agree with her dictation. The area appears to be improving status post Violeta and drainage and IV antibiotics. I don't think that we are planning any acute further surgical intervention at this point. We do not have a specific fluid collection or drainage. He appears to be improving and should continue his antibiotics as per infectious disease. His cultures are still pending and once he can be established with his antibiotic. It would be be okay for him to be discharged from an orthopedic standpoint for close follow-up
--- NOTE | 2021-06-12 17:31 | P.PN ---
Subjective 71-year-old male was admitted for swelling and cellulitis of the left hand and questionable abscess on the dorsal aspect of the left hand. Patient had a CT which did not show any deep fluid collection patient had incision and drainage with the clearance serous fluid drainage. Wound cultures were obtained patient is presently on Augmentin apparently there is significant improvement in his swelling. Patient doesn't have fever or leukocytosis Constitutional: Denied any fatigue denied any fever. Cardio vascular: denied any chest pain, palpitations Gastrointestinal denied any nausea vomiting Pulmonary: Denied any shortness of breath cough Neurologic denied any new focal deficits All inpatient medications were reviewed and appropriate changes in these medications as dictated in the interval history and assessment and plan. The rest of the 14-point review of systems is negative. PHYSICAL EXAMINATION: GENERAL: The patient is alert and oriented x3, not in any acute distress. Well developed, well nourished. HEENT: Pupils are round and equally reacting to light. EOMI. No scleral icterus. No conjunctival pallor. Normocephalic, atraumatic. No pharyngeal erythema. No thyromegaly. CARDIOVASCULAR: S1 and S2 present. No murmurs, rubs, or gallops. PULMONARY: Chest is clear to auscultation, no wheezing or crackles. ABDOMEN: Soft, nontender, nondistended, normoactive bowel sounds. No palpable organomegaly. MUSCULOSKELETAL: No joint swelling or deformity. EXTREMITIES: No cyanosis, clubbing, or pedal edema. Patient has significant swelling in the left hand with us site of abscess which was drained redness. NEUROLOGICAL: Gross neurological examination did not reveal any focal deficits. SKIN: Hand cellulitis as mentioned above Assessment and plan -Cat bite infection cellulitis of the left hand: Continue with Unasyn. Wound cultures were obtained awaiting wound cultures so far Gram stain did not show any significant abnormality -Hypertension continue with amlodipine and losartan -History of for basal cell skin cancer DVT prophylaxis: Ambulation Objective - Vital Signs Vital signs: Vital Signs Temp 97.9 F 06/12/21 13:00 Pulse 40 L 06/12/21 13:00 Resp 16 06/12/21 13:00 BP 113/61 06/12/21 13:00 Pulse Ox 97 06/12/21 13:00 Intake & Output 06/11/21 06/12/21 06/12/21 18:59 06:59 18:59 Intake Total 680 1120 240 Balance 680 1120 240 Intake: Intake, IV Titration 200 200 Amount Ampicillin-Sulbactam 3 gm 200 200 In Sodium Chloride 0.9% 100 ml @ 200 mls/hr IVPB Q6HR [facility] Rx#:[id number] Oral 480 920 240 Other: Voiding Method Toilet # Voids 2 1 3 - Labs CBC & Chem 7: 06/12/21 06:05 06/12/21 06:05 Labs: Abnormal Lab Results - Last 24 Hours (Table) 06/12/21 Range/Units 06:05 BUN/Creatinine Ratio 11.82 L (12.00-20.00) Ratio Glucose 115 H (70-110) mg/dL Albumin/Globulin Ratio 1.41 L (1.60-3.17) g/dL Microbiology - Last 24 Hours (Table) 06/09/21 13:40 Blood Culture - Preliminary Blood No Growth after 72 hours 06/09/21 13:25 Blood Culture - Preliminary Blood No Growth after 72 hours 06/11/21 16:00 Gram Stain - Preliminary Hand - Right Wound Culture - Preliminary 06/11/21 12:45 Gram Stain - Preliminary Hand - Right Wound Culture - Preliminary
[2021-06-12] MEDS: LOSARTAN 25 MG TAB PO SCH (20:16)
[2021-06-12] MEDS: [UNRECOGNIZED DRUG - OTHER] PO SCH (20:18)
--- NOTE | 2021-06-12 21:17 | PN ---
PROGRESS NOTE DATE OF SERVICE: 06/12/2021 REASON FOR FOLLOWUP: Right hand cat bite cellulitis and abscess. INTERVAL HISTORY: Patient is afebrile. The patient did have bedside drainage of the right hand abscess. The patient tolerated the procedure. Pain is currently controlled. No chest pain, shortness of breath or cough. No abdominal pain, no diarrhea. PHYSICAL EXAMINATION: Blood pressure 113/61, pulse of 65, temperature 97.9. He is 97% on room air. GENERAL DESCRIPTION: The patient is an elderly male up in the bed in no distress. RESPIRATORY SYSTEM: Unlabored breathing, clear to auscultation anteriorly. HEART: S1, S2. Regular rate and rhythm. EXTREMITIES: Right hand with redness and swelling, slightly decreased. LABS: White count 5.3, creatinine 1.1. DIAGNOSTIC IMPRESSION AND PLAN: Patient with right hand cat bite cellulitis and abscess status post surgical drainage. Cultures are currently pending. Patient to continue Unasyn. Discharge, await ( ) culture report. Continue supportive care. MMODL / IJN: [id number] /
[2021-06-13] MEDS: AMPICILLIN-SULBACTAM 3 GM in SODIUM CHLORIDE 0.9% 100 ML IVPB SCH ×5 (00:06→23:50)
[2021-06-13] MEDS: amLODIPine 10 MG TAB PO SCH (08:06)
[2021-06-13] MEDS: MULTIVITAMINS, THERA 1 EACH TAB PO SCH (08:06)
--- NOTE | 2021-06-13 10:36 | P.PN ---
Subjective Progress Note Date: 06/13/21 Principal diagnosis: Right hand cat bite The patient is a very pleasant 71-year-old male who presented to the emergency department 2 days ago after sustaining a cat bite to the right hand last Monday. He was seen at urgent care after the bite and was given oral antibiotics. Redness and pain in the right arm started in the arm on Monday and he went to the emergency department. He is admitted for IV antibiotics. The patient states the redness and pain in the arm has improved since IV antibiotics as started. This morning, the patient states that he was in the shower and the wound opened up and started draining. He wound culture was taken earlier today and is currently pending. The patient is being closely followed by internal medicine and infectious disease. He denies any fevers but did state that he had a low-grade fever while in the hospital. He denies any specific chills but does state he has had night sweats since this started. He states that he has had finger stiffness since the swelling started but denies numbness. The patient is currently receiving Unasyn. Orthopedics was consulted for further evaluation and possible I&D of the right hand. 06/12/2021: The patient was evaluated at the bedside with Dr. Lira this morning. He states his hand is feeling better since the bedside I&D yesterday. He denies any recent fever or chills. The swelling in the palm side of the hand is improving according to the patient. No new complaints today. Cultures are pending. CT of the hand reveals no deep fluid collection. 06/13/2021: The patient was evaluated at the bedside this morning. He states his hand is feeling better since the bedside I&D 2 days ago. He denies any recent fever or chills. The swelling on the dorsal aspect of the hand and finger motion is improving. No new complaints today. Cultures are negative for the past 24 hours. Objective - Vital Signs Vital signs: Vital Signs Temp 97.9 F 06/13/21 04:30 Pulse 58 L 06/13/21 04:30 Resp 20 06/13/21 04:30 BP 109/53 06/13/21 04:30 Pulse Ox 98 06/13/21 04:30 Intake & Output 06/12/21 06/13/21 06/13/21 18:59 06:59 18:59 Intake Total 240 460 Balance 240 460 Intake: Oral 240 460 Other: Voiding Method Toilet # Voids 3 1 - Exam The patient is a 71-year-old male in no acute distress. He is alert and oriented 3. Exam of the right hand reveals localized swelling to the dorsal aspect of the right hand. The swelling and redness has continued improved. There is pain upon palpation to the second and third MCP joints and upon range of motion of the right index and middle fingers. No evidence of tendon sheath or deep infection at this time. No purulence noted. Circulatory and neurological status is intact. - Labs CBC & Chem 7: 06/12/21 06:05 06/12/21 06:05 Labs: Microbiology - Last 24 Hours (Table) 06/11/21 16:00 Gram Stain - Preliminary Hand - Right Wound Culture - Preliminary 06/11/21 12:45 Gram Stain - Preliminary Hand - Right Wound Culture - Preliminary 06/09/21 13:40 Blood Culture - Preliminary Blood No Growth after 72 hours 06/09/21 13:25 Blood Culture - Preliminary Blood No Growth after 72 hours Assessment and Plan (1) Cat bite of right hand with infection Current Visit: Yes Status: Acute Code(s): S61.451A - OPEN BITE OF RIGHT HAND, INITIAL ENCOUNTER; L08.9 - LOCAL INFECTION OF THE SKIN AND SUBCUTANEOUS TISSUE, UNSP; W55.01XA - BITTEN BY CAT, INITIAL ENCOUNTER SNOMED Code(s): 635732213 (2) Acute lymphangitis of right upper extremity Current Visit: Yes Status: Acute Code(s): L03.123 - ACUTE LYMPHANGITIS OF RIGHT UPPER LIMB SNOMED Code(s): 1192797 Plan: The clinical findings were discussed with the patient. The case was discussed at length with Dr. Perez Lira. The patient will continue IV Unasyn as directed by infectious disease. Moist heat has been ordered. The patient may wash his hand with soap and water normally and keep wound covered. When antibiotics are decided on by infectious disease, the patient may continue local wound care at home and may be discharged home from an orthopedic standpoint. The patient is orthopedically stable for discharge. We will continue to follow patient closely and make further recommendations as needed.
--- NOTE | 2021-06-13 12:07 | P.PN ---
Subjective Progress Note Date: 06/13/21 71-year-old male was admitted for swelling and cellulitis of the left hand and questionable abscess on the dorsal aspect of the left hand. Patient had a CT which did not show any deep fluid collection patient had incision and drainage with the clearance serous fluid drainage. Wound cultures were obtained patient is presently on Augmentin apparently there is significant improvement in his swelling. Patient doesn't have fever or leukocytosis 06/13/2021 Patient continues antimicrobial therapy with unasyn for cat bite to right hand, still having some drainage and there is surrounding redness still present. No fevers, WBC remains within normal limits. Patient states that he may have an irregular heart rhythm when nurses were taking his pulse. Denies history of arrythmia. Denies chest pain or palpitations. His blood pressure has been well controlled, he likely does not require 2 antihypertensives we will discontinue losartan and monitor his blood pressures on norvasc alone. Constitutional: Denied any fatigue denied any fever. Cardio vascular: denied any chest pain, palpitations Gastrointestinal denied any nausea vomiting Pulmonary: Denied any shortness of breath cough Neurologic denied any new focal deficits All inpatient medications were reviewed and appropriate changes in these me dications as dictated in the interval history and assessment and plan. The rest of the 14-point review of systems is negative. PHYSICAL EXAMINATION: GENERAL: The patient is alert and oriented x3, not in any acute distress. Well developed, well nourished. HEENT: Pupils are round and equally reacting to light. EOMI. No scleral icterus. No conjunctival pallor. Normocephalic, atraumatic. No pharyngeal erythema. No thyromegaly. CARDIOVASCULAR: S1 and S2 present. No murmurs, rubs, or gallops. PULMONARY: Chest is clear to auscultation, no wheezing or crackles. ABDOMEN: Soft, nontender, nondistended, normoactive bowel sounds. No palpable organomegaly. MUSCULOSKELETAL: No joint swelling or deformity. EXTREMITIES: No cyanosis, clubbing, or pedal edema. Patient has significant swelling in the left hand with us site of abscess which was drained redness. NEUROLOGICAL: Gross neurological examination did not reveal any focal deficits. SKIN: Hand cellulitis as mentioned above Assessment and plan -Cat bite infection cellulitis of the left hand: Continue with Unasyn. Wound cultures were obtained awaiting wound cultures so far Gram stain did not show any significant abnormality -Hypertension: blood pressure on low side, may not require 2 antihypertensives we will discontinue losartan and monitor blood pressure on norvasc alone. We will order thermostat maker to monitor for any arrythmia overnight, he does not have any history of known arrythmia. -History of for basal cell skin cancer DVT prophylaxis: Ambulation Objective - Vital Signs Vital signs: Vital Signs Temp 97.9 F 06/13/21 04:30 Pulse 58 L 06/13/21 08:40 Resp 20 06/13/21 08:40 BP 109/53 06/13/21 04:30 Pulse Ox 98 06/13/21 04:30 Intake & Output 06/12/21 06/13/21 06/13/21 18:59 06:59 18:59 Intake Total 240 460 Balance 240 460 Intake: Oral 240 460 Other: Voiding Method Toilet Toilet # Voids 3 1 3 - Labs CBC & Chem 7: 06/12/21 06:05 06/12/21 06:05 Labs: Microbiology - Last 24 Hours (Table) 06/11/21 16:00 Gram Stain - Preliminary Hand - Right Wound Culture - Preliminary 06/11/21 12:45 Gram Stain - Preliminary Hand - Right Wound Culture - Preliminary 06/09/21 13:40 Blood Culture - Preliminary Blood No Growth after 72 hours 06/09/21 13:25 Blood Culture - Preliminary Blood No Growth after 72 hours
[2021-06-13] MEDS: [UNRECOGNIZED DRUG - OTHER] PO SCH (20:21)
--- NOTE | 2021-06-13 21:39 | PN ---
PROGRESS NOTE DATE OF SERVICE: 06/13/2021 REASON FOR FOLLOWUP: Right hand cat bite cellulitis. INTERVAL HISTORY: Patient is afebrile. The patient is feeling better. Breathing comfortably. Overall, pain and discomfort right hand is decreased. No chest pain, shortness of breath. No cough. No abdominal pain. No diarrhea. PHYSICAL EXAMINATION: Blood pressure 137/54, pulse of 55, temperature 98.1. He is 97% on room air. GENERAL DESCRIPTION: Is elderly male up in the bed in no distress. RESPIRATORY SYSTEM: Unlabored breathing, clear to auscultation anteriorly. HEART: S1, S2. Regular rate and rhythm. ABDOMEN: Soft, no tenderness. EXTREMITIES: Right hand swelling has slightly decreased. Minimal drainage. LABS: Creatinine 1.1. Wound cultures currently pending. Blood culture so far negative. DIAGNOSTIC IMPRESSION AND PLAN: Patient with right hand cat bite cellulitis. The patient is status post drainage of the abscess. Cultures are pending. Will keep the patient on Unasyn, waiting for the culture to finalize to determine his discharge antibiotics. Continue supportive care. MMODL / IJN: [id number] /
[2021-06-14] MEDS: AMPICILLIN-SULBACTAM 3 GM in SODIUM CHLORIDE 0.9% 100 ML IVPB SCH ×2 (05:36→12:12)
[2021-06-14] MEDS: amLODIPine 10 MG TAB PO SCH (08:14)
[2021-06-14] MEDS: MULTIVITAMINS, THERA 1 EACH TAB PO SCH (08:14)
--- NOTE | 2021-06-14 08:16 | P.DS ---
Providers Date of admission: 06/09/21 14:09 Attending physician: Leonid Carrizales Consults: 06/09/21 19:41 Consult Physician Routine Consulting Provider: Meghan Salcedo Consult Reason/Comments: Cellulitis, cat bite Do you want consulting provider notified?: Yes 06/11/21 13:54 Consult Physician Urgent Consulting Provider: Jim Cheung Consult Reason/Comments: I&D Do you want consulting provider notified?: Yes Primary care physician: Leonid Carrizales - Discharge Diagnosis(es) (1) Acute lymphangitis of right upper extremity Current Visit: Yes Status: Acute (2) Cat bite of right forearm with infection Current Visit: Yes Status: Acute Hospital Course: This discharge summary 71-year-old white male essentially admitted for cellulitis of the right arm and hand secondary to feline bite. The patient was placed on appropriate antibiotic treatment but due to the abscess formation, incision and drainage was done. The patient was stabilized with appropriate Unasyn and will be discharged once cleared by infectious disease. The patient will follow-up with me in 3-5 days. Patient Condition at Discharge: Fair Plan - Discharge Summary New Discharge Prescriptions: Continue amLODIPine BESYLATE [Norvasc] 10 mg PO DAILY Multivit-Min/FA/Lycopen/Lutein [Centrum Silver Tablet] 1 tab PO DAILY Losartan [Cozaar] 25 mg PO HS Neuriva Brain Support 1 cap PO HS Amoxic-Pot Clav 500-125 mg [Augmentin 500-125 mg] 1 tab PO Q12H Discharge Medication List amLODIPine BESYLATE [Norvasc] 10 mg PO DAILY 11/28/19 [History] Amoxic-Pot Clav 500-125 mg [Augmentin 500-125 mg] 1 tab PO Q12H 06/09/21 [History] Losartan [Cozaar] 25 mg PO HS 06/09/21 [History] Multivit-Min/FA/Lycopen/Lutein [Centrum Silver Tablet] 1 tab PO DAILY 06/09/21 [History] Neuriva Brain Support 1 cap PO HS 06/09/21 [History] Follow up Appointment(s)/Referral(s): Kraig Lira DO [Doctor of Osteopathic Medicine] - 3 Days Leonid Carrizales MD [Primary Care Provider] - 1 Week Activity/Diet/Wound Care/Special Instructions: May wash hand with soap and water. Allow hand to dry and reapply gauze to the right hand. Keep wound clean and dry Follow up with Dr. Lira in 3-4 days after discharge. Discharge Disposition: HOME SELF-CARE
[2021-06-14 09:37] LABS: African American GFR (CKD) 70.6 (60.0-200.0); Anion Gap 9.7 mmol/L (4.00-12.00); BUN/Creat Ratio 11.67 Ratio (12.00-20.00); Calcium 8.4 mg/dL (8.7-10.3); Carbon Dioxide 24.3 mmol/L (21.6-31.8); Non-African American GFR(CKD) 60.9 (60.0-200.0); Potassium 4.1 mmol/L (3.5-5.5)
--- NOTE | 2021-06-14 10:20 | P.PN ---
Progress Note - Text Progress Note Date: 06/14/21 Orthopedics: History of present illness: Patient is a very pleasant 71-year-old male who is seen and examined at bedside for follow-up evaluation for his right hand after sustaining a cat bite to his right hand the previous Monday. Since his admittance to the hospital he has continued to improve. He underwent a bedside I&D on 06/11/2021. He continues with IV antibiotic medication. He is currently waiting for cultures to be finalized so he may be discharged with antibiotics per infectious disease. Patient has been discharged by medicine this morning. Patient does continue to have some erythema with some reduced range of motion and pain at the second metacarpal phalangeal joint of the right hand. He feels he has continued to improve. His pain is better controlled. He feels he could work. 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 He feels he is ready for discharge today. Physical Exam: Patient is awake, alert, and oriented 3 Vital signs stable Good chest excursion with deep inspiration and expiration Evidence of some erythema and swelling with some mild pain at the right second metacarpal phalangeal joint of the right hand Swelling and erythema over the posterior right hand has improved Neurovascular intact right upper extremity Some reduced range of motion with active range of motion of the index finger of the right hand Patient is able to perform range of motion of the fingers of the right hand without significant difficulty Active range of motion of the right wrist and elbow without difficulty Assessment: Status post cat bite of the right hand with infection Right hand pain Acute lymphangitis of the right upper extremity That is post bedside irrigation and debridement Hypertension Plan: 1. Patient has continued to improve following bedside I&D and IV antibiotic medication. He has better range of motion he discontinue have some pain, erythema, swelling at the right hand most significant at the second metacarpal phalangeal joint. This has continued to improve with treatment. He is currently waiting for cultures to be finalized he may be discharged with antibiotics per infectious disease. He has been discharged by medicine this morning. From an orthopedic standpoint, we are not currently planning for further irrigation and debridement or surgical intervention at his right hand. He has continued to improve and we would continue with conservative treatment options. At this time, patient is clear for discharge from an orthopedic standpoint. Patient may follow-up with Myles Aparicio PA-C or Dr. Perez Lira at [facility] in 3-4 days following discharge. 2. Patient will continue be seen and examined by other medical providers including medicine and infectious disease
[2021-06-14 12:39] VITALS: BP 146/83; PULSE 59; RESP 17; TEMP 98.1
--- NOTE | 2021-06-14 17:22 | PN ---
PROGRESS NOTE DATE OF SERVICE: 06/14/2021 REASON FOR FOLLOWUP: Right hand cat bite cellulitis. INTERVAL HISTORY: Patient is afebrile. The patient is breathing comfortably. Overall, pain and discomfort has decreased in intensity. No chest pain, shortness of breath, abdominal pain. No diarrhea. PHYSICAL EXAMINATION: Blood pressure is 146/83, pulse of 59, temperature 98.1, 98% on room air. GENERAL DESCRIPTION: The patient is an elderly male up in the chair in no distress. RESPIRATORY SYSTEM: Unlabored breathing, clear to auscultation anteriorly. HEART: S1, S2. Regular rate and rhythm. ABDOMEN: Soft, no tenderness. EXTREMITIES: Right hand swelling has slightly decreased. LABS: BUN of 14, creatinine 1.2. Culture has been negative so far. IMPRESSION/PLAN: Right hand cat bite cellulitis, no evidence of any deep abscess or osteomyelitis on the CT. The patient has shown overall clinical improvement. He will finish therapy with oral Augmentin 875 b.i.d. for 10 days, prescription sent to pharmacy. He has been advised to follow up in the office in 1 week. If any worsening swelling or redness noted, let us know right away. MMODL / IJN: [id number] /
== END 2021-06-14 15:52 | disposition home or self-care (01) | DRG 603 ==
LOC: EC 12:54 → 5NMEDONC 14:09
PROVIDERS: ADMIT Family Medicine; ATTEND Family Medicine
DX: L03.113 Cellulitis of right upper limb (principal); L02.511 Cutaneous abscess of right hand; S61.451A Open bite of right hand, initial encounter; W55.01XA Bitten by cat, initial encounter; I10 Essential (primary) hypertension; H91.93 Unspecified hearing loss, bilateral; Z79.899 Other long term (current) drug therapy; Z80.0 Family history of malignant neoplasm of digestive organs; Z80.8 Family history of malignant neoplasm of other organs or systems; Z85.828 Personal history of other malignant neoplasm of skin; Z87.442 Personal history of urinary calculi; Z87.891 Personal history of nicotine dependence; Z90.5 Acquired absence of kidney; Z98.890 Other specified postprocedural states; Z88.5 Allergy status to narcotic agent; Z91.040 Latex allergy status
CPT/HCPCS: 36415; 80048; 80053; 83605; 85025; 85027; 86140; 87040; 87070; 87205; 93005; 96365; 99284

== ENCOUNTER → 2021-06-21 | Outpatient (CLI) | payer BC, MEDICARE ==
--- NOTE | 2021-06-21 13:06 | XR ---
EXAMINATION TYPE: XR chest 2V DATE OF EXAM: 06/21/2021 COMPARISON: 10/16/2019 TECHNIQUE: PA and lateral views submitted. HISTORY: Cough FINDINGS: The lungs are clear and there is no pneumothorax, pleural effusion, or focal pneumonia. Hyperinflat ion suggests COPD. Nodule overlying the right lung is stable most likely the basis of a nipple shadow . Hypertrophic and degenerative changes of the spine. IMPRESSION: 1. No acute process. Correlate for COPD.
== END | disposition home or self-care (01) ==
LOC: RADXRMAIN 12:36
PROVIDERS: ATTEND Family Medicine
DX: R05 Cough (principal)
CPT/HCPCS: 71046

== ENCOUNTER → 2021-08-24 | Outpatient (CLI) | payer BC | END | disposition home or self-care (01) | LOC: LABWHC1 12:58 | PROVIDERS: ATTEND Urology | DX: R97.20 Elevated prostate specific antigen [PSA] (principal) | CPT/HCPCS: 36415; 84153 ==

== ENCOUNTER → 2021-09-30 | Outpatient (CLI) | payer BC | END | disposition home or self-care (01) | LOC: LABWHC1 15:22 | PROVIDERS: ATTEND Urology | DX: R97.20 Elevated prostate specific antigen [PSA] (principal) | CPT/HCPCS: 36415; 84153 ==

== ENCOUNTER → 2022-08-29 | Outpatient (CLI) | payer BC | END | disposition home or self-care (01) | LOC: LABWHC1 07:00 | PROVIDERS: ATTEND Urology | DX: C61 Malignant neoplasm of prostate (principal) | CPT/HCPCS: 36415; 84153 ==

== ENCOUNTER → 2022-12-05 | Outpatient (CLI) | payer BC ==
--- NOTE | 2022-12-06 21:58 | MR ---
EXAMINATION TYPE: MR Prostate wo/w con DATE OF EXAM: 12/05/2022 9:49 AM COMPARISON: None. CLINICAL INDICATION:Male, 72 years old with history of C61 PROSTATE CANCER; TECHNIQUE: Multi-planar, multi-sequence imaging of the pelvis is performed prior to and following the uncomplicated administration of bolus intravenous gadolinium. 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 Ellipsoid Volume:83.04 (PSA density=0.05 ng/mL/mL) CENTRAL GLAND (Central and Transition Zones/CZ+TZ): Multiple bilateral, heterogenous appearing hypertrophic stromal nodules, without suspicious lesion. M edian lobe hypertrophy with protrusion into the base of the bladder. (PI-RADS 2) PERIPHERAL ZONE (PZ): Bilateral linear, indistinct wedgelike areas of low ADC, and low T2 signal, No evidence of masslike a bnormality, or localized perfusional hypervascularity, to further suggest a focus of clinically signi ficant prostate cancer. (PI-RADS 2) SEMINAL VESICLES (SV): Decompressed on the right and unremarkable. PERIPROSTATIC TISSUES: Unremarkable. LYMPH NODES: No enlarged pelvic lymph node. REMAINING PELVIS: Bladder wall is within normal limits given distention. No abnormal free or organized intrapelvic fluid collection. No pathologic bowel dilation or mural thickening. OSSEOUS STRUCTURES: No suspicious osseous abnormality. IMPRESSION: 1. No specific features for high-risk prostate cancer. Maximum PI-RADS score: 2. No finding to correl ate with biopsy results. 2. Substantial BPH, estimated gland volume 83 mL. 3. No suspicious osseous lesion. No lymphadenopathy. No evidence of prostate adenocarcinoma involving the periprostatic tissues.
== END | disposition home or self-care (01) ==
LOC: RADMRIMAIN 08:44
PROVIDERS: ATTEND Urology
DX: C61 Malignant neoplasm of prostate (principal); N40.0 Benign prostatic hyperplasia without lower urinary tract symptoms
CPT/HCPCS: 72197; A9585

== ENCOUNTER → 2023-02-27 | Outpatient (CLI) | payer BC | END | disposition home or self-care (01) | LOC: LABWHC1 13:03 | PROVIDERS: ATTEND Urology | DX: C61 Malignant neoplasm of prostate (principal) | CPT/HCPCS: 36415; 84153 ==

== ENCOUNTER 2023-06-16 16:05 | Emergency (ER) | payer BC, MEDICARE ==
[2023-06-16 16:33] VITALS: RESP 18
--- NOTE | 2023-06-16 19:23 | ED ---
Recheck HPI - General Chief Complaint: Recheck/Abnormal Lab/Rx Stated Complaint: high blood pressure and dizziness Time Seen by Provider: 06/16/23 18:58 Source: patient, RN notes reviewed Mode of arrival: ambulatory Limitations: no limitations - History of Present Illness Initial Comments: This is a 73-year-old male who presents to the emergency department for elevated blood pressure and dizziness. Patient states that he went to use the restroom this morning, and started to feel very dizzy. Anytime he changed positions the dizziness would occur. States that this is not typical for him. He went to check his blood pressure and said that it was in the 190s systolically. He then subsequently started to track his blood pressure throughout the day and it ranged from the 140s to 180s systolically for the rest of the day. His pulse ranged from the 40s to 60s. He called his engineering tech's office, however they did not return his call. He then called Dr. Carrizales's office, however he was told that Dr. Carrizales was on vacation and the nurse who answered the phone recommended he go to the emergency department. Patient states that he currently feels fine. He was just diagnosed with atrial fibrillation a couple of weeks ago and is currently on Eliquis. He is also being treated for his blood pressure and has been compliant with his medications. Denies any fevers, chills, sore throat, cough, dyspnea, chest pain, palpitations, abdominal pain, nausea, vomiting, diarrhea, back pain, or headaches. MD Complaint: other (Elevated BP) - Related Data Home Medications Medication Instructions Recorded Confirmed Losartan [Cozaar] 25 mg PO DAILY 06/09/21 06/04/23 Previous Rx's Medication Instructions Recorded Apixaban [Eliquis] 5 mg PO BID 30 Days #60 tab 06/06/23 Metoprolol Succinate (ER) [Toprol 50 mg PO DAILY 30 Days #30 tab 06/06/23 XL] Losartan [Cozaar] 50 mg PO DAILY #30 tab 06/16/23 Allergies Allergy/AdvReac Type Severity Reaction Status Date / Time hydrocodone Allergy Nausea & Verified 06/16/23 21:13 Vomiting latex Allergy Rash/Hives Verified 06/16/23 21:13 meperidine [From Demerol] Allergy Nausea & Verified 06/16/23 21:13 Vomiting Review of Systems ROS Statement: Those systems with pertinent positive or pertinent negative responses have been documented in the HPI. ROS Other: All systems not noted in ROS Statement are negative. Past Medical History Past Medical History: Atrial Fibrillation, Cancer, Hearing Disorder / Deafness, Hypertension Additional Past Medical History / Comment(s): kidney stones, basal cell skin cancer on neck and scalp, CHALKYITSIK -CHALKYITSIK LEFT EAR ALMOST CANT HEAR ANYTHING, CHALKYITSIK RT, irregular heart beat History of Any Multi-Drug Resistant Organisms: None Reported Past Surgical History: Hernia Repair, Orthopedic Surgery Additional Past Surgical History / Comment(s): Nephrectomy with nephrostomy 2018, left knee arthroscopy, multiple Ureteral stent placement , LEFT INGUINAL HERNIA REPAIR Past Anesthesia/Blood Transfusion Reactions: Postoperative Nausea & Vomiting (PONV) Past Psychological History: No Psychological Hx Reported Smoking Status: Former smoker Past Alcohol Use History: Occasional Past Drug Use History: None Reported - Past Family History Father Family Medical History: Cancer Additional Family Medical History / Comment(s): melanoma Mother Family Medical History: Cancer Additional Family Medical History / Comment(s): colon cancer General Exam Limitations: no limitations General appearance: alert, in no apparent distress Head exam: Present: atraumatic, normocephalic, normal inspection Eye exam: Present: normal appearance, PERRL, EOMI. Absent: scleral icterus, conjunctival injection, periorbital swelling Respiratory exam: Present: normal lung sounds bilaterally. Absent: respiratory distress, wheezes, rales, rhonchi, stridor Cardiovascular Exam: Present: regular rate, normal rhythm, normal heart sounds. Absent: systolic murmur, diastolic murmur, rubs, gallop, clicks Neurological exam: Present: alert, oriented X3, CN II-XII intact Psychiatric exam: Present: normal affect, normal mood Skin exam: Present: warm, dry, intact, normal color. Absent: rash Course Vital Signs 06/16/23 06/16/23 06/16/23 16:31 19:33 19:59 Temperature 98 F Pulse Rate 65 47 L Pulse Rate [ 46 L Fishing Rod Trimmer ] Pulse Rate [ Sitting Fishing Rod Trimmer] Pulse Rate [ Standing Fishing Rod Trimmer ] Pulse Rate [ Supine Fishing Rod Trimmer] Respiratory 18 18 Rate Blood Pressure 169/82 143/85 Blood Pressure [Right Arm Sitting] Blood Pressure [Right Arm Standing] Blood Pressure [Right Arm Supine] O2 Sat by Pulse 99 97 Oximetry 06/16/23 06/16/23 20:05 21:26 Temperature 98.0 F Pulse Rate 51 L Pulse Rate [ Fishing Rod Trimmer ] Pulse Rate [ 48 L Sitting Fishing Rod Trimmer] Pulse Rate [ 51 L Standing Fishing Rod Trimmer ] Pulse Rate [ 48 L Supine Fishing Rod Trimmer] Respiratory 18 Rate Blood Pressure 152/97 Blood Pressure 155/93 [Right Arm Sitting] Blood Pressure 153/97 [Right Arm Standing] Blood Pressure 149/91 [Right Arm Supine] O2 Sat by Pulse 97 Oximetry Medical Decision Making - Medical Decision Making This is a 73-year-old male who presents to the emergency department for elevated blood pressure and dizziness. Was pt. sent in by a medical professional or institution? @ -No Did you speak to anyone other than the patient for history? @ -No Did you review nursing and triage notes? @ -Yes, and I agree, it is accurate with regards to the patient's symptoms. Were old charts reviewed? @ -No Differential Diagnosis? @ -Differential Dizziness: Benign paroxysmal positional Vertigo, Menieres disease, otitis media, acoustic neuroma, vertebrobasilar insufficiency, cerebellar stroke, encephalitis, hypovolemic, arrhythmia, coronary artery syndrome, anemia, this is not meant to be an all-inclusive list EKG interpreted by me (3pts min.)? @ -EKG interpreted by me demonstrating the following: Sinus bradycardia. Ventricular rate 46 bpm, KS interval 179 ms, QRS duration 99 ms, QTC 447 ms. X-rays interpreted by me (1pt min.)? @ -Not obtained CT interpreted by me (1pt min.)? @ -Not obtained U/S interpreted by me (1pt. min.)? @ -Not obtained What testing was considered but not performed? (CT, X-rays, U/S, labs)? Why? @ -None What meds were considered but not given? Why? @ -None Did you discuss the management of the patient with other professionals? @ -No Did you reconcile home meds? @ -No Was smoking cessation discussed for >3mins.? @ -No Was critical care preformed (if so, how long)? @ -No Were there social determinants of health that impacted care today? How? (Homelessness, low income, unemployed, alcoholism, drug addiction, transportation, low edu. Level, literacy, decrease access to med. care, fpc, rehab)? @ -No Was there de-escalation of care discussed even if they declined? (Discuss DNR or withdrawal of care, Hospice)? @ -No What co-morbidities impacted this encounter? (DM, HTN, Smoking, COPD, CAD, Cancer, CVA, Hep., AIDS, mental health diagnosis, sleep apnea, morbid obesity)? @ -Atrial fibrillation, HTN Was patient admitted / discharged? @ -Discharged. Lab work obtained revealing a mildly elevated lactic acid and was otherwise nonactionable. Orthostatics obtained and found to be negative. Patient was still hypertensive in the emergency department. Given his blood pressures here with reportedly elevated blood pressures at home, advised the patient increase his losartan from 25 to 50 mg. An updated prescription was sent to the pharmacy. He was instructed to monitor his blood pressure very closely over the next several days with this change and to keep a log of these values to discuss with his PCP and cardiology during his upcoming appointments. However, I advised that if his blood pressure gets too low or he feels dizzy after increasing it, that he should go back down to the 25 mg. Also instructed him to move around slowly to reduce the risk of additional dizzy episodes. Undiagnosed new problem with uncertain prognosis? @ -None Drug Therapy requiring intensive monitoring for toxicity (Heparin, Nitro, Insulin, Cardizem)? @ -None Were any procedures done? @ -None Diagnosis/symptom? @ -HTN Acute, or Chronic, or Acute on Chronic? @ -Chronic Uncomplicated (without systemic symptoms) or Complicated (systemic symptoms)? @ -Uncomplicated Side effects of treatment? @ -None Exacerbation, Progression, or Severe Exacerbation] @ -Progression Poses a threat to life or bodily function? @ -Yes, this increases his risk for heart attacks and strokes. Diagnosis/symptom? @ -Dizziness Acute, or Chronic, or Acute on Chronic? @ -Acute Uncomplicated (without systemic symptoms) or Complicated (systemic symptoms)? @ -Uncomplicated Side effects of treatment? @ -None Exacerbation, Progression, or Severe Exacerbation] @ -Not applicable Poses a threat to life or bodily function? @ -No Return precautions reviewed in depth, the patient is instructed to return to the emergency department with any new, worsening, or concerning symptoms. Patient verbalized understanding. This case was discussed in detail with the attending ED physician, Dr. Gale. Presentation, findings, and treatment plan discussed in detail as well. - Lab Data Result diagrams: 06/16/23 19:45 06/16/23 19:45 Lab Results 06/16/23 06/16/23 06/16/23 Range/Units 19:45 19:45 19:45 WBC 3.6 L (3.8-10.6) k/uL RBC 4.80 (4.30-5.90) m/uL Hgb 14.7 (13.0-17.5) gm/dL Hct 42.6 (39.0-53.0) % MCV 88.8 (80.0-100.0) fL MCH 30.6 (25.0-35.0) pg MCHC 34.4 (31.0-37.0) g/dL RDW 13.2 (11.5-15.5) % Plt Count 141 L (150-450) k/uL MPV 10.3 Neutrophils % 57 % Lymphocytes % 31 % Monocytes % 7 % Eosinophils % 3 % Basophils % 1 % Neutrophils # 2.0 (1.3-7.7) k/uL Lymphocytes # 1.1 (1.0-4.8) k/uL Monocytes # 0.3 (0-1.0) k/uL Eosinophils # 0.1 (0-0.7) k/uL Basophils # 0.0 (0-0.2) k/uL PT (9.0-12.0) sec INR (<1.2) Sodium 139 (137-145) mmol/L Potassium 3.6 (3.5-5.1) mmol/L Chloride 105 (98-107) mmol/L Carbon Dioxide 25 (22-30) mmol/L Anion Gap 9 mmol/L BUN 15 (9-20) mg/dL Creatinine 0.93 (0.66-1.25) mg/dL Est GFR (CKD-EPI)AfAm >90 (>60 ml/min/1.73 sqM) Est GFR (CKD-EPI)NonAf 82 (>60 ml/min/1.73 sqM) Glucose 126 H (74-99) mg/dL Lactic Ac Sepsis Rflx Plasma Lactic Acid Vipul (0.7-2.0) mmol/L Calcium 8.4 (8.4-10.2) mg/dL Total Bilirubin 0.7 (0.2-1.3) mg/dL AST 27 (17-59) U/L ALT 24 (4-49) U/L Alkaline Phosphatase 80 (38-126) U/L Troponin I <0.012 (0.000-0.034) ng/mL Total Protein 6.8 (6.3-8.2) g/dL Albumin 3.8 (3.5-5.0) g/dL Urine Color Urine Appearance (Clear) Urine pH (5.0-8.0) Ur Specific [place] (1.001-1.035) Urine Protein (Negative) Urine Glucose (UA) (Negative) Urine Ketones (Negative) Urine Blood (Negative) Urine Nitrite (Negative) Urine Bilirubin (Negative) Urine Urobilinogen (<2.0) mg/dL Ur Leukocyte Esterase (Negative) Urine RBC (0-5) /hpf Urine WBC (0-5) /hpf Calcium Oxalate Crystal (None) /hpf Urine Mucus (None) /hpf 06/16/23 06/16/23 06/16/23 Range/Units 19:45 19:45 20:10 WBC (3.8-10.6) k/uL RBC (4.30-5.90) m/uL Hgb (13.0-17.5) gm/dL Hct (39.0-53.0) % MCV (80.0-100.0) fL MCH (25.0-35.0) pg MCHC (31.0-37.0) g/dL RDW (11.5-15.5) % Plt Count (150-450) k/uL MPV Neutrophils % % Lymphocytes % % Monocytes % % Eosinophils % % Basophils % % Neutrophils # (1.3-7.7) k/uL Lymphocytes # (1.0-4.8) k/uL Monocytes # (0-1.0) k/uL Eosinophils # (0-0.7) k/uL Basophils # (0-0.2) k/uL PT 10.6 (9.0-12.0) sec INR 1.0 (<1.2) Sodium (137-145) mmol/L Potassium (3.5-5.1) mmol/L Chloride (98-107) mmol/L Carbon Dioxide (22-30) mmol/L Anion Gap mmol/L BUN (9-20) mg/dL Creatinine (0.66-1.25) mg/dL Est GFR (CKD-EPI)AfAm (>60 ml/min/1.73 sqM) Est GFR (CKD-EPI)NonAf (>60 ml/min/1.73 sqM) Glucose (74-99) mg/dL Lactic Ac Sepsis Rflx Plasma Lactic Acid Vipul 2.2 H* (0.7-2.0) mmol/L Calcium (8.4-10.2) mg/dL Total Bilirubin (0.2-1.3) mg/dL AST (17-59) U/L ALT (4-49) U/L Alkaline Phosphatase (38-126) U/L Troponin I (0.000-0.034) ng/mL Total Protein (6.3-8.2) g/dL Albumin (3.5-5.0) g/dL Urine Color Yellow Urine Appearance Clear (Clear) Urine pH 5.5 (5.0-8.0) Ur Specific [place] >1.030 (1.001-1.035) Urine Protein 1+ (Negative) Urine Glucose (UA) Negative (Negative) Urine Ketones Negative (Negative) Urine Blood Negative (Negative) Urine Nitrite Negative (Negative) Urine Bilirubin Negative (Negative) Urine Urobilinogen <0.2 (<2.0) mg/dL Ur Leukocyte Esterase Negative (Negative) Urine RBC 1 (0-5) /hpf Urine WBC 1 (0-5) /hpf Calcium Oxalate Crystal Occasional H (None) /hpf Urine Mucus Rare H (None) /hpf 06/16/23 Range/Units 20:14 WBC (3.8-10.6) k/uL RBC (4.30-5.90) m/uL Hgb (13.0-17.5) gm/dL Hct (39.0-53.0) % MCV (80.0-100.0) fL MCH (25.0-35.0) pg MCHC (31.0-37.0) g/dL RDW (11.5-15.5) % Plt Count (150-450) k/uL MPV Neutrophils % % Lymphocytes % % Monocytes % % Eosinophils % % Basophils % % Neutrophils # (1.3-7.7) k/uL Lymphocytes # (1.0-4.8) k/uL Monocytes # (0-1.0) k/uL Eosinophils # (0-0.7) k/uL Basophils # (0-0.2) k/uL PT (9.0-12.0) sec INR (<1.2) Sodium (137-145) mmol/L Potassium (3.5-5.1) mmol/L Chloride (98-107) mmol/L Carbon Dioxide (22-30) mmol/L Anion Gap mmol/L BUN (9-20) mg/dL Creatinine (0.66-1.25) mg/dL Est GFR (CKD-EPI)AfAm (>60 ml/min/1.73 sqM) Est GFR (CKD-EPI)NonAf (>60 ml/min/1.73 sqM) Glucose (74-99) mg/dL Lactic Ac Sepsis Rflx Y Plasma Lactic Acid Vipul (0.7-2.0) mmol/L Calcium (8.4-10.2) mg/dL Total Bilirubin (0.2-1.3) mg/dL AST (17-59) U/L ALT (4-49) U/L Alkaline Phosphatase (38-126) U/L Troponin I (0.000-0.034) ng/mL Total Protein (6.3-8.2) g/dL Albumin (3.5-5.0) g/dL Urine Color Urine Appearance (Clear) Urine pH (5.0-8.0) Ur Specific [place] (1.001-1.035) Urine Protein (Negative) Urine Glucose (UA) (Negative) Urine Ketones (Negative) Urine Blood (Negative) Urine Nitrite (Negative) Urine Bilirubin (Negative) Urine Urobilinogen (<2.0) mg/dL Ur Leukocyte Esterase (Negative) Urine RBC (0-5) /hpf Urine WBC (0-5) /hpf Calcium Oxalate Crystal (None) /hpf Urine Mucus (None) /hpf Disposition Clinical Impression: Hypertension, Dizziness Disposition: HOME SELF-CARE Instructions (If sedation given, give patient instructions): Hypertension (ED) Additional Instructions: Return to the emergency department with any new, worsening, or concerning symptoms. Increase your losartan to 50 mg starting tomorrow. You can take 2 of the 25mg tablets to use them up. Keep a log of your blood pressure. If you become increasingly dizzy after increasing the Losartan, reduce it back to your initial dosage. If your blood pressure gets to the range of 180s or higher on the top number, and does not come down, you develop severe headaches, or visual changes, make sure you return to the emergency department immediately. When you are standing up or moving around, make sure you do so very slowly to reduce the risk of dizziness. Make sure you are also staying well-hydrated. Follow up with your primary care provider in 1-2 days. Prescriptions: Losartan [Cozaar] 50 mg PO DAILY #30 tab Is patient prescribed a controlled substance at d/c from ED?: No Referrals: Leonid Carrizales MD [Primary Care Provider] - 1-2 days
[2023-06-16 19:54] LABS: Basophils % (A) 1 %; Eosinophils # (A) 0.1 k/uL (0-0.7); Eosinophils % (A) 3 %; HCT 42.6 % (39.0-53.0); HGB 14.7 gm/dL (13.0-17.5); Lymphocytes # (A) 1.1 k/uL (1.0-4.8); Lymphocytes % (A) 31 %; MCH 30.6 pg (25.0-35.0); MCHC 34.4 g/dL (31.0-37.0); MCV 88.8 fL (80.0-100.0); Mean Platelet Volume 10.3; Monocytes # (A) 0.3 k/uL (0-1.0); Monocytes % (A) 7 %; Neutrophils % (A) 57 %; Platelet Count 141 k/uL (150-450); RDW 13.2 % (11.5-15.5); WBC 3.6 k/uL (3.8-10.6)
[2023-06-16 19:59] LABS: Prothrombin Time 10.6 sec (9.0-12.0)
[2023-06-16 20:09] LABS: ALT 24 U/L (4-49); AST 27 U/L (17-59); African American GFR (CKD) >90 (>60 ml/min/1.73 sqM); Albumin 3.8 g/dL (3.5-5.0); Alkaline Phosphatase 80 U/L (38-126); Anion Gap 9 mmol/L; Blood Urea Nitrogen 15 mg/dL (9-20); Calcium 8.4 mg/dL (8.4-10.2); Carbon Dioxide 25 mmol/L (22-30); Chloride 105 mmol/L (98-107); Glucose 126 mg/dL (74-99); Non-African American GFR(CKD) 82 (>60 ml/min/1.73 sqM); Potassium 3.6 mmol/L (3.5-5.1); Sodium 139 mmol/L (137-145); Total Bilirubin 0.7 mg/dL (0.2-1.3); Total Protein 6.8 g/dL (6.3-8.2)
[2023-06-16 20:35] LABS: Appearance,Urine Clear (Clear); Color,Urine Yellow
[2023-06-16 20:36] LABS: Bilirubin,Urine Negative (Negative); Blood,Urine Negative (Negative); Glucose,Urine (UA) Negative (Negative); Ketones,Urine Negative (Negative); Leukocyte Esterase,Urine Negative (Negative); Nitrite,Urine Negative (Negative); PH, Urine 5.5 (5.0-8.0); Protein,Urine 1+ (Negative); Specific Gravity,Urine >1.030 (1.001-1.035); Urobilinogen,Urine <0.2 mg/dL (<2.0)
[2023-06-16 20:40] LABS: Calcium Oxalate Crystals,Urine Occasional /hpf; Mucus,Urine Rare /hpf; RBC,Urine 1 /hpf (0-5); WBC,Urine 1 /hpf (0-5)
[2023-06-16 21:29] VITALS: BP 152/97; PULSE 51; TEMP 98
== END 2023-06-16 21:29 | disposition home or self-care (01) ==
LOC: EC 16:05
DX: I10 Essential (primary) hypertension (principal); R74.02 Elevation of levels of lactic acid dehydrogenase [LDH]; I48.91 Unspecified atrial fibrillation; Z79.01 Long term (current) use of anticoagulants; Z79.899 Other long term (current) drug therapy; Z88.5 Allergy status to narcotic agent; Z91.040 Latex allergy status; Z87.891 Personal history of nicotine dependence
CPT/HCPCS: 36415; 80053; 81001; 83605; 84484; 85025; 85610; 93005; 99284

== ENCOUNTER → 2023-08-29 | Outpatient (CLI) | payer BC, MEDICARE | END | disposition home or self-care (01) | LOC: LABWHC1 07:03 | PROVIDERS: ATTEND Urology | DX: C61 Malignant neoplasm of prostate (principal) | CPT/HCPCS: 36415; 84153 ==

== ENCOUNTER → 2023-10-10 | Outpatient (CLI) | payer BC, MEDICARE ==
--- NOTE | 2023-10-10 11:57 | XR ---
EXAMINATION TYPE: XR knee complete RT DATE OF EXAM: 10/10/2023 10:56 AM CLINICAL INDICATION:Male, 73 years old with history of M79.604 leg pain; COMPARISON: None. TECHNIQUE: XR knee complete RT; examined in Frontal, lateral and oblique projections. FINDINGS: No evidence of any acute osseous pathology, soft tissue swelling, or joint effusion is no albino. Tricompartmental osteophyte formation involving the tibial plateau and patella. Mild joint space hansa rowing. IMPRESSION: 1. No acute osseous pathology. 2. Mild tricompartmental osteoarthritic changes.
--- NOTE | 2023-10-10 11:58 | XR ---
EXAMINATION TYPE: XR Hip Complete RT DATE OF EXAM: 10/10/2023 10:56 AM CLINICAL INDICATION:Male, 73 years old with history of M79.604 pain; COMPARISON: None. TECHNIQUE: XR Hip Complete RT; hip was examined in the frontal and lateral projections and a AP pelvi s. FINDINGS: No evidence for acute process, joint dislocation or significant soft tissue swelling. Osteo phyte formation of the superior acetabulum of the hip and tightness space narrowing. Pelvic phlebolit hs are present. IMPRESSION: 1. No evidence for acute process. 2. Moderate hip osteoarthrosis.
== END | disposition home or self-care (01) ==
LOC: RADXRMAIN 10:36
PROVIDERS: ATTEND Family Medicine
DX: M17.11 Unilateral primary osteoarthritis, right knee (principal); M16.11 Unilateral primary osteoarthritis, right hip
CPT/HCPCS: 73502

== ENCOUNTER → 2024-12-19 | Outpatient (CLI) | payer BC, MEDICARE, OTHER ==
[2024-12-20 03:04] LABS: BUN/Creat Ratio 14.92 Ratio (12.00-20.00); Blood Urea Nitrogen 17.9 mg/dL (9.0-27.0); Calcium 8.9 mg/dL (8.7-10.3); Carbon Dioxide 25.8 mmol/L (21.6-31.8); Chloride 107 mmol/L (96-109); Glucose 98 mg/dL (70-110); Potassium 4.6 mmol/L (3.5-5.5); Sodium 143 mmol/L (135-145)
[2024-12-20 04:04] LABS: NT-Pro-B-Type Natriuretic Pept 7519 pg/mL (0-125)
== END | disposition home or self-care (01) ==
LOC: LABWHC1 15:01
PROVIDERS: ATTEND Internal Medicine Cardiovascular Disease
DX: I50.9 Heart failure, unspecified (principal)
CPT/HCPCS: 36415; 80048; 83880

== ENCOUNTER → 2025-01-20 | Outpatient (CLI) | payer OTHER, BC, MEDICARE ==
[2025-01-20 19:21] LABS: BUN/Creat Ratio 17.77 Ratio (12.00-20.00); Blood Urea Nitrogen 23.1 mg/dL (9.0-27.0); Calcium 9.6 mg/dL (8.7-10.3); Carbon Dioxide 28.4 mmol/L (21.6-31.8); Chloride 103 mmol/L (96-109); Glucose 85 mg/dL (70-110); Potassium 4.9 mmol/L (3.5-5.5); Sodium 142 mmol/L (135-145)
[2025-01-20 19:24] LABS: NT-Pro-B-Type Natriuretic Pept 1787 pg/mL (0-125)
== END | disposition home or self-care (01) ==
LOC: LABWHC1 13:24
PROVIDERS: ATTEND Internal Medicine Cardiovascular Disease
DX: I50.9 Heart failure, unspecified (principal)
CPT/HCPCS: 36415; 80048; 83880

== ENCOUNTER 2025-02-12 16:33 | Observation (INO) | payer OTHER, BC ==
--- NOTE | 2025-02-12 16:44 | ED ---
Recheck HPI - General Source: patient, RN notes reviewed Mode of arrival: ambulatory Limitations: no limitations <Kay Hodges - Last Filed: 02/12/25 16:43> <Karen Sandoval - Last Filed: 02/13/25 09:57> - General Stated Complaint: abn labs Time Seen by Provider: 02/12/25 16:43 - History of Present Illness Initial Comments: Quick note: 74-year-old male presented the ER for evaluation of hyperkalemia. Patient had blood work drawn this morning at [facility] per Dr. Crowe. Patient was contacted and instructed to go to the emergency department as potassium was 5.9. Over the past couple of days patient has been feeling fatigued and dizzy. He has a history of CHF and is currently wearing a LifeVest. Patient does take spironolactone, Lasix and potassium supplement. (Kay Hodges) Patient is a 74 y/o gentleman PMH atrial fibrillation on eliquis, CHF presenting today for hyperkalemia noted on outpatient labs at [facility] this morning. K was reportedly 5.9. Endorses fatigue, dizziness described as lightheadedness with ambulation or sudden changes in vision intermittently as well as centralized chest pressure and exertional shortness of breath. Pt states chest pressure is intermittent and can worsen w/ activity but also can occur at rest, though is not currently present. No new LE swelling, fevers, or chills. States urine appeared darker this morning and that his urine output is variable but not markedly decreased today. Pt wears a lifevest. Takes 20 mg K BID, spirinolactone, lasix BID, and Entresto. Denies changes in vision, numbness or focal weakness, abdominal pain, nausea or vomiting, diarrhea, melena or hematochezia. (Karen Sandoval) - Related Data Home Medications Medication Instructions Recorded Confirmed Metoprolol Succinate (ER) [Toprol 50 mg PO HS@1030 12/20/24 02/12/25 XL] Apixaban [Eliquis] 5 mg PO BID@0900,1600 02/12/25 02/12/25 Potassium Chloride ER [K-Dur 20] 20 meq PO BID@0900,1600 02/12/25 02/12/25 Sacubitril/Valsartan [Entresto 24 1 tab PO BID@0900,1600 02/12/25 02/12/25 mg-26 mg Tablet] Spironolactone 25 mg PO DAILY@0900 02/12/25 02/12/25 Previous Rx's Medication Instructions Recorded Furosemide [Lasix] 40 mg PO BID@0900,1600 30 Days #60 12/26/24 tab Allergies Allergy/AdvReac Type Severity Reaction Status Date / Time hydrocodone Allergy Nausea & Verified 02/12/25 20:14 Vomiting latex Allergy Rash/Hives Verified 02/12/25 20:14 meperidine [From Demerol] Allergy Nausea & Verified 02/12/25 20:14 Vomiting Review of Systems ROS Other: All systems not noted in ROS Statement are negative. <Kay Hodges - Last Filed: 02/12/25 16:43> ROS Other: All systems not noted in ROS Statement are negative. <Karen Sandoval - Last Filed: 02/13/25 09:57> ROS Statement: Those systems with pertinent positive or pertinent negative responses have been documented in the HPI. Past Medical History Past Medical History: Atrial Fibrillation, Cancer, Heart Failure, Hearing Disorder / Deafness, Hypertension Additional Past Medical History / Comment(s): kidney stones, basal cell skin cancer on neck and scalp, SAXMAN -SAXMAN LEFT EAR ALMOST CANT HEAR ANYTHING, SAXMAN RT, irregular heart beat History of Any Multi-Drug Resistant Organisms: None Reported Past Surgical History: Hernia Repair, Orthopedic Surgery Additional Past Surgical History / Comment(s): Nephrectomy with nephrostomy 2018, left knee arthroscopy, multiple Ureteral stent placement , LEFT INGUINAL HERNIA REPAIR Past Anesthesia/Blood Transfusion Reactions: Postoperative Nausea & Vomiting (PONV) Past Psychological History: No Psychological Hx Reported Smoking Status: Former smoker Past Alcohol Use History: Occasional Past Drug Use History: None Reported - Past Family History Father Family Medical History: Cancer Additional Family Medical History / Comment(s): melanoma Mother Family Medical History: Cancer Additional Family Medical History / Comment(s): colon cancer <Kay Hodges - Last Filed: 02/12/25 16:43> General Exam <Kay Hodges - Last Filed: 02/12/25 16:43> <Karen Sandoval - Last Filed: 02/13/25 09:57> - General Exam Comments Initial Comments: Visual Physical Exam Vital signs reviewed General: Well-appearing, nontoxic, no acute distress. Head: Normocephalic, atraumatic Eyes: PERRLA, EOMI ENT: Airway patent Chest: Nonlabored breathing Skin: No visual rash, normal skin tone Neuro: Alert and oriented 3 Musculoskeletal: No gross abnormalities (Kay Hodges) PE: CONSTITUTIONAL: No apparent distress, well appearing SKIN: [warm, dry, no jaundice, or visible rashes EYES: Pupils are equally round, extraocular movements intact without nystagmus, clear conjunctiva, non-icteric sclera HENT: Normocephalic, atraumatic, moist mucus membranes, oropharynx clear without exudates NECK: , Full range of motion, normal appearance PULMONARY: Clear to auscultation without wheezes, rhonchi, or rales, normal excursion, no accessory muscle use and no stridor CARDIOVASCULAR: Irregularly irregular rate and rhythm, normal S1 and S2. S3 present no appreciated murmurs or rubs strong radial pulses with intact distal perfusion. No lower extremity edema GASTROINTESTINAL: Soft, active bowel sounds throughout, non-tender, non- distended, no palpable masses, no rebound or guarding. No hepatosplenomegaly MUSCULOSKELETAL: Extremities have no gross deformity, no edema, redness, or sw elling. No calf swelling NEUROLOGIC:_a/o x 3, GCS 15, normal mentation and speech. Moves all extremities x 4 without motor or sensory deficit PSYCHIATRIC:_normal mood and affect, thought process is clear and linear (Karen Sandoval) Course Vital Signs 02/12/25 02/12/25 02/12/25 17:07 18:54 23:54 Temperature 98.1 F 98.2 F Pulse Rate 46 L 100 65 Respiratory 20 18 18 Rate Blood Pressure 88/61 105/84 113/89 O2 Sat by Pulse 95 98 98 Oximetry Medical Decision Making <Kay Hodges - Last Filed: 02/12/25 16:43> - Lab Data Result diagrams: 02/12/25 17:26 02/12/25 17:26 <Karen Sandoval - Last Filed: 02/13/25 09:57> - Medical Decision Making I performed the quick note portion of this chart. Electronically signed by Kay Hodges PA-C (Kay Hodges) Was pt. sent in by a medical professional or institution (, PA, BEADER, urgent care, hospital, or correction...) When possible be specific @ -No Did you speak to anyone other than the patient for history (EMS, parent, family, police, friend...)? What history was obtained from this source @ -No Did you review nursing and triage notes (agree or disagree)? Why? @ -I reviewed nursing and triage notes-no Exa patient is here for hyperkalemia on outpatient labs, I agree with this Were old charts reviewed (outside hosp., previous admission, EMS record, old EKG, old radiological studies, urgent care reports/EKG's, correction records)? Report findings @ -Medical records reviewed-Reviewed echocardiogram from 12/24/24 which showed severe left ventricular systolic dysfunction with an EF of 10 to 15% Differential Diagnosis (chest pain, altered mental status, abdominal pain women, abdominal pain men, vaginal bleeding, weakness, fever, dyspnea, syncope, headache, dizziness, GI bleed, back pain, seizure, CVA, palpatations, mental health, musculoskeletal)? @Differential Chest Pain: ACS, pericarditis, pleurisy, chostochondirits, Pneumothorax, Musculoskeletal, Esophageal Spasm GERD, Cholecystitis; in addition, in regards to hyperkalemia, differential diagnosis includes hemolysis or lab draw error, acute renal failure, medication side effect however this is not meant to be an all-inclusive list. EKG interpreted by me (3pts min.). Atrial fibrillation, rate 91 bpm QT/QTc 380/429, normal axis, Q-wave lead V1, V2 V3 no ST elevations or depressionsCompared to EKG performed on 12/25/2024, Q waves were present on prior X-rays interpreted by me (1pt min.). @ -I personally reviewed chest x-ray, I do not see significant cardiomegaly, pleural effusions or consolidations, radiology interpretation does note question possible fluid overload state however appears from prior x-ray, patient does not appear fluid overloaded myself and lungs are clear to " CT interpreted by me (1pt min.). @ -None done U/S interpreted by me (1pt. min.). @ -None done What testing was considered but not performed or refused? (CT, X-rays, U/S, labs)? Why? @ -None What meds were considered but not given or refused? Why? @ -None Did you discuss the management of the patient with other professionals (felecia paz i.e. , PA, BEADER, lab, RT, psych nurse, outreach and education social worker, room service attendant, teacher, operational intelligence officer, caser in)? Give summary @ -No Was smoking cessation discussed for >3mins.? @ -No Was critical care preformed (if so, how long)? @ -No Were there social determinants of health that impacted care today? How? (Homelessness, low income, unemployed, alcoholism, drug addiction, transportation, low edu. Level, literacy, decrease access to med. care, nursing home, rehab)? @ -No Was there de-escalation of care discussed even if they declined (Discuss DNR or withdrawal of care, Hospice)? @ -No What co-morbidities impacted this encounter? (DM, HTN, Smoking, COPD, CAD, Cancer, CVA, ARF, Chemo, Hep., AIDS, mental health diagnosis, sleep apnea, morbid obesity)? Atrial fibrillation, CHF Was patient admitted / discharged? Hospital course, mention meds given and route, prescriptions, significant lab abnormalities, going to OR and other pertinent info. @Admission this is a 74-year-old gentleman presenting today for hyperkalemia as well as intermittent chest pain and shortness of breath over the last 2 days. ATP labs ordered which were subsequently reviewed by myself. Patient's potassium here is actually within normal limits at 4.7 without intervention. His GFR is 56 when previously has been in the 70s. Creatinine is 1.26, previously was 1.3. Chest pain evaluation was also ordered, by myself, overall reassuring, BNP is slightly elevated though down from prior. Given intermittent chest pain, cardiac history plan for admission for chest pain observation. Updated patient to findings and plan of care which he is agreeable. Case was discussed with Dr. Carrizales who kindly accepted patient for admission. Undiagnosed new problem with uncertain prognosis? @ -No Drug Therapy requiring intensive monitoring for toxicity (Heparin, Nitro, Insulin, Cardizem)? @ -No Were any procedures done? @ -No Diagnosis/symptom? Chest pain Acute, or Chronic, or Acute on Chronic? Acute Uncomplicated (without systemic symptoms) or Complicated (systemic symptoms)? @Complicated Side effects of treatment? @ -No Exacerbation, Progression, or Severe Exacerbation? @ -No Poses a threat to life or bodily function? How? (Chest pain, [place], [place], pneumonia, PE, COPD, DKA, ARF, appy, cholecystitis, CVA, Diverticulitis, Homicidal, Suicidal, threat to staff... and all critical care pts) @Potentially, if chest pain is secondary to unstable angina/underlying cardiac abnormality and left on identified or untreated or monitored could lead to STEMI and or cardiac arrest (Karen Sandoval) - Lab Data Lab Results 02/12/25 02/12/25 02/12/25 Range/Units 17:26 17: 20:00 WBC 3.1 L (3.8-10.6) k/uL RBC 5.04 (4.30-5.90) m/uL Hgb 15.0 (13.0-17.5) gm/dL Hct 45.5 (39.0-53.0) % MCV 90.4 (80.0-100.0) fL MCH 29.7 (25.0-35.0) pg MCHC 32.8 (31.0-37.0) g/dL RDW 13.9 (11.5-15.5) % Plt Count 140 L (150-450) k/uL MPV 9.8 Neutrophils % 41 % Lymphocytes % 42 % Monocytes % 8 % Eosinophils % 5 % Basophils % 1 % Neutrophils # 1.3 (1.3-7.7) k/uL Lymphocytes # 1.3 (1.0-4.8) k/uL Monocytes # 0.2 (0-1.0) k/uL Eosinophils # 0.1 (0-0.7) k/uL Basophils # 0.0 (0-0.2) k/uL PT 11.0 (10.0-12.5) sec INR 1.0 (<1.2) APTT 23.6 (22.0-30.0) sec Sodium 137 (137-145) mmol/L Potassium 4.7 (3.5-5.1) mmol/L Chloride 103 (98-107) mmol/L Carbon Dioxide 27 (22-30) mmol/L Anion Gap 7 mmol/L BUN 30 H (9-20) mg/dL Creatinine 1.26 H (0.66-1.25) mg/dL Est GFR (CKD-EPI)AfAm 65 (>60 ml/min/1.73 sqM) Est GFR (CKD-EPI)NonAf 56 (>60 ml/min/1.73 sqM) Glucose 75 (74-99) mg/dL Calcium 8.9 (8.4-10.2) mg/dL Magnesium 2.3 (1.6-2.3) mg/dL Total Bilirubin 0.8 (0.2-1.3) mg/dL AST 36 (17-59) U/L ALT 36 (4-49) U/L Alkaline Phosphatase 63 (38-126) U/L Troponin I (0.000-0.034) ng/mL NT-Pro-B Natriuret Pep pg/mL Total Protein 7.0 (6.3-8.2) g/dL Albumin 4.0 (3.5-5.0) g/dL Urine Color Urine Appearance (Clear) Urine pH (5.0-8.0) Ur Specific [place] (1.001-1.035) Urine Protein (Negative) Urine Glucose (UA) (Negative) Urine Ketones (Negative) Urine Blood (Negative) Urine Nitrite (Negative) Urine Bilirubin (Negative) Urine Urobilinogen (<2.0) mg/dL Ur Leukocyte Esterase (Negative) 02/12/25 02/12/25 02/12/25 Range/Units 20:00 20:00 20:00 WBC (3.8-10.6) k/uL RBC (4.30-5.90) m/uL Hgb (13.0-17.5) gm/dL Hct (39.0-53.0) % MCV (80.0-100.0) fL MCH (25.0-35.0) pg MCHC (31.0-37.0) g/dL RDW (11.5-15.5) % Plt Count (150-450) k/uL MPV Neutrophils % % Lymphocytes % % Monocytes % % Eosinophils % % Basophils % % Neutrophils # (1.3-7.7) k/uL Lymphocytes # (1.0-4.8) k/uL Monocytes # (0-1.0) k/uL Eosinophils # (0-0.7) k/uL Basophils # (0-0.2) k/uL PT (10.0-12.5) sec INR (<1.2) APTT (22.0-30.0) sec Sodium (137-145) mmol/L Potassium (3.5-5.1) mmol/L Chloride (98-107) mmol/L Carbon Dioxide (22-30) mmol/L Anion Gap mmol/L BUN (9-20) mg/dL Creatinine (0.66-1.25) mg/dL Est GFR (CKD-EPI)AfAm (>60 ml/min/1.73 sqM) Est GFR (CKD-EPI)NonAf (>60 ml/min/1.73 sqM) Glucose (74-99) mg/dL Calcium (8.4-10.2) mg/dL Magnesium (1.6-2.3) mg/dL Total Bilirubin (0.2-1.3) mg/dL AST (17-59) U/L ALT (4-49) U/L Alkaline Phosphatase (38-126) U/L Troponin I <0.012 (0.000-0.034) ng/mL NT-Pro-B Natriuret Pep 1380 pg/mL Total Protein (6.3-8.2) g/dL Albumin (3.5-5.0) g/dL Urine Color Colorless Urine Appearance Clear (Clear) Urine pH 5.0 (5.0-8.0) Ur Specific [place] 1.007 (1.001-1.035) Urine Protein Negative (Negative) Urine Glucose (UA) Negative (Negative) Urine Ketones Negative (Negative) Urine Blood Negative (Negative) Urine Nitrite Negative (Negative) Urine Bilirubin Negative (Negative) Urine Urobilinogen <2.0 (<2.0) mg/dL Ur Leukocyte Esterase Negative (Negative) Disposition <Kay Hodges - Last Filed: 02/12/25 16:43> <Karen Sandoval - Last Filed: 02/13/25 09:57> Clinical Impression: Chest pain Disposition: ADMITTED IP TO THIS HOSP Condition: Stable
[2025-02-12 17:38] LABS: Basophils % (A) 1 %; Eosinophils # (A) 0.1 k/uL (0-0.7); Eosinophils % (A) 5 %; HCT 45.5 % (39.0-53.0); Lymphocytes # (A) 1.3 k/uL (1.0-4.8); Lymphocytes % (A) 42 %; MCH 29.7 pg (25.0-35.0); MCHC 32.8 g/dL (31.0-37.0); MCV 90.4 fL (80.0-100.0); Mean Platelet Volume 9.8; Monocytes # (A) 0.2 k/uL (0-1.0); Monocytes % (A) 8 %; Neutrophils # (A) 1.3 k/uL (1.3-7.7); Neutrophils % (A) 41 %; Platelet Count 140 k/uL (150-450); RBC 5.04 m/uL (4.30-5.90); RDW 13.9 % (11.5-15.5); WBC 3.1 k/uL (3.8-10.6)
[2025-02-12 17:51] LABS: ALT 36 U/L (4-49); AST 36 U/L (17-59); African American GFR (CKD) 65 (>60 ml/min/1.73 sqM); Alkaline Phosphatase 63 U/L (38-126); Anion Gap 7 mmol/L; Blood Urea Nitrogen 30 mg/dL (9-20); Calcium 8.9 mg/dL (8.4-10.2); Carbon Dioxide 27 mmol/L (22-30); Chloride 103 mmol/L (98-107); Glucose 75 mg/dL (74-99); Magnesium 2.3 mg/dL (1.6-2.3); Non-African American GFR(CKD) 56 (>60 ml/min/1.73 sqM); Potassium 4.7 mmol/L (3.5-5.1); Sodium 137 mmol/L (137-145); Total Bilirubin 0.8 mg/dL (0.2-1.3)
[2025-02-12] MEDS: SODIUM CHLORIDE 0.9% 500 ML 500 ML IV STA (20:08)
--- NOTE | 2025-02-12 20:08 | XR ---
EXAMINATION TYPE: XR chest 2V DATE OF EXAM: 02/12/2025 CLINICAL INDICATION: Male, 74 years old with history of Chest Pain, TECHNIQUE: Frontal and lateral views of the chest are obtained. COMPARISON: Chest x-ray December 20, 2024 FINDINGS: There is mild cardiomegaly with small to tiny bilateral pleural effusions. No suspicious f ocal airspace opacity or pneumothorax is seen bilaterally. The osseous structures are intact. IMPRESSION: Correlate for CHF exacerbation/fluid overload state though findings are less prominent th an most recent x-ray. [facility], , 02/12/2025 8:06 PM
[2025-02-12 20:21] LABS: Appearance,Urine Clear (Clear); Bilirubin,Urine Negative (Negative); Blood,Urine Negative (Negative); Color,Urine Colorless; Glucose,Urine (UA) Negative (Negative); Ketones,Urine Negative (Negative); Leukocyte Esterase,Urine Negative (Negative); Nitrite,Urine Negative (Negative); Protein,Urine Negative (Negative); Specific Gravity,Urine 1.007 (1.001-1.035); Urobilinogen,Urine <2.0 mg/dL (<2.0)
[2025-02-12 20:32] LABS: Partial Thromboplastin Time 23.6 sec (22.0-30.0)
[2025-02-12] MEDS ORDERED: NALOXONE 0.4 MG/ML 1 ML VIAL IV PRN (21:35)
[2025-02-12] MEDS ORDERED: MAG HYDROX/AL HYDROX/SIMETH 30 ML CUP PO PRN (21:35)
[2025-02-12] MEDS ORDERED: CALCIUM CARBONATE 500 MG CHEWABLE PO PRN (21:35)
[2025-02-12] MEDS ORDERED: ACETAMINOPHEN TAB 325 MG TAB PO PRN (21:35)
[2025-02-12] MEDS ORDERED: ONDANSETRON 4 MG/2 ML VIAL IVP PRN (21:35)
[2025-02-12] MEDS: METOPROLOL SUCCINATE (ER) 50 MG TAB.ER.24H PO SCH (22:17)
--- NOTE | 2025-02-12 23:44 | US ---
EXAM: US Retroperitoneal Limited, Renal CLINICAL HISTORY: ITS.REASON US Reason: YURIY TECHNIQUE: Real-time limited ultrasound of the retroperitoneum with image documentation. COMPARISON: No relevant prior studies available. FINDINGS: Right kidney: Unremarkable. Right kidney measures 12.6 cm. No hydronephrosis, mass, cyst, or stone. Left kidney: Left nephrectomy. Bladder: Unremarkable appearance of the urinary bladder. Ureteral jets not visualized during the course of exam. IMPRESSION: 1. Normal appearance of the right kidney. 2. Left nephrectomy.
--- NOTE | 2025-02-13 08:39 | P.HPIM ---
History of Present Illness H&P Date: 02/13/25 This is a 74-year-old male who presented to the emergency department for evaluation of hyperkalemia per Dr. Crowe. Patient had some lab work done at the [facility] which showed a potassium of 5.9 so he was sent to the emergency department. Patient reports the last few days he has felt very fatigued and dizzy. He does have a history of CHF and is currently wearing a LifeVest. Patient had a recent admission for a reduced ejection fraction. Patient was taking at home spironolactone, Lasix and potassium supplement. Patient seen this morning sitting up in bed eating breakfast. He reports he is still feeling dizzy. Recheck of potassium yesterday was 4.7 on admission. Labs for today pending at time of dictation. Nursing staff reports Dr. Crowe has said to restart patient's Entresto. Patient's GFR slightly decreased since last admission, and creatinine was 1.26. Ultrasound of the kidneys was done and was normal. Further medical history as noted below. Review of Systems Constitutional: Denies chills, Denies fever Ears, nose, mouth and throat: Reports vertigo Cardiovascular: Reports chest pain, Denies dyspnea on exertion Respiratory: Denies cough, Denies dyspnea Gastrointestinal: Denies nausea, Denies vomiting Musculoskeletal: Denies arm numbness/tingling, Denies leg numbness/tingling Neurological: Denies headaches, Denies weakness Past Medical History Past Medical History: Atrial Fibrillation, Cancer, Heart Failure, Hearing Disorder / Deafness, Hypertension Additional Past Medical History / Comment(s): kidney stones, basal cell skin cancer on neck and scalp, KALTAG -KALTAG LEFT EAR ALMOST CANT HEAR ANYTHING, KALTAG RT, irregular heart beat History of Any Multi-Drug Resistant Organisms: None Reported Past Surgical History: Hernia Repair, Orthopedic Surgery Additional Past Surgical History / Comment(s): Nephrectomy with nephrostomy 2018, left knee arthroscopy, multiple Ureteral stent placement , LEFT INGUINAL HERNIA REPAIR Past Anesthesia/Blood Transfusion Reactions: Postoperative Nausea & Vomiting (PONV) Past Psychological History: No Psychological Hx Reported Smoking Status: Former smoker Past Alcohol Use History: Occasional Additional Past Alcohol Use History / Comment(s): quit smoking 1971, smoked for 4 yrs Past Drug Use History: None Reported - Past Family History Father Family Medical History: Cancer Additional Family Medical History / Comment(s): melanoma Mother Family Medical History: Cancer Additional Family Medical History / Comment(s): colon cancer Medications and Allergies Home Medications Medication Instructions Recorded Confirmed Type Metoprolol Succinate (ER) [Toprol 50 mg PO HS@1030 12/20/24 02/12/25 History XL] Furosemide [Lasix] 40 mg PO BID@0900,1600 30 Days #60 12/26/24 02/12/25 Rx tab Apixaban [Eliquis] 5 mg PO BID@0900,1600 02/12/25 02/12/25 History Potassium Chloride ER [K-Dur 20] 20 meq PO BID@0900,1600 02/12/25 02/12/25 History Sacubitril/Valsartan [Entresto 24 1 tab PO BID@0900,1600 02/12/25 02/12/25 History mg-26 mg Tablet] Spironolactone 25 mg PO DAILY@0900 02/12/25 02/12/25 History Allergies Allergy/AdvReac Type Severity Reaction Status Date / Time hydrocodone Allergy Nausea & Verified 02/12/25 20:14 Vomiting latex Allergy Rash/Hives Verified 02/12/25 20:14 meperidine [From Demerol] Allergy Nausea & Verified 02/12/25 20:14 Vomiting Physical Exam Vitals: Vital Signs Temp Pulse Pulse Resp BP BP Pulse Ox 02/13/25 08:26 97.5 F L 65 17 104/63 97 02/13/25 07:00 97.5 F L 65 17 104/63 97 02/13/25 00:16 97.7 F 64 16 130/88 99 02/12/25 23:54 98.2 F 65 18 113/89 98 02/12/25 18:54 100 18 105/84 98 02/12/25 17:07 98.1 F 46 L 20 88/61 95 Intake and Output 02/12/25 02/13/25 02/13/25 22:59 06:59 14:59 Intake Total 118 Balance 118 Intake: Oral 118 Other: Voiding Method Toilet # Voids 1 Weight 76.657 kg 76.657 kg - Constitutional General appearance: cooperative, no acute distress - EENT Eyes: PERRLA - Neck Neck: no lymphadenopathy, normal ROM, no rigidity - Respiratory Respiratory: bilateral: CTA - Cardiovascular Heart sounds: normal: S1, S2 - Gastrointestinal General gastrointestinal: soft, no tenderness - Integumentary Integumentary: normal, normal turgor - Psychiatric Psychiatric: A&O x's 3, appropriate affect, intact judgment & insight Results CBC & Chem 7: 02/12/25 17:26 02/12/25 17:26 Labs: Abnormal Lab Results - Last 24 Hours (Table) 02/12/25 02/12/25 Range/Units 17:26 17:26 WBC 3.1 L (3.8-10.6) k/uL Plt Count 140 L (150-450) k/uL BUN 30 H (9-20) mg/dL Creatinine 1.26 H (0.66-1.25) mg/dL Thrombosis Risk Factor Assmnt - Choose All That Apply Each Risk Factor Represents 2 Points: Age 61-74 years Thrombosis Risk Factor Assessment Total Risk Factor Score: 2 Thrombosis Risk Factor Assessment Level: Low Risk Assessment and Plan (1) Chest pain Current Visit: Yes Status: Acute Code(s): R07.9 - CHEST PAIN, UNSPECIFIED SNOMED Code(s): 15147350 (2) Atrial fibrillation Current Visit: No Status: Acute Code(s): I48.91 - UNSPECIFIED ATRIAL FIBRILLATION SNOMED Code(s): 08615540 (3) Cardiomyopathy Current Visit: No Status: Acute Code(s): I42.9 - CARDIOMYOPATHY, UNSPECIFIED SNOMED Code(s): 80908251 (4) Dizziness Current Visit: No Status: Acute Code(s): R42 - DIZZINESS AND GIDDINESS SNOMED Code(s): 336622098 (5) Hypertension Current Visit: No Status: Acute Code(s): I10 - ESSENTIAL (PRIMARY) HYPERTENSION SNOMED Code(s): 18011927 (6) Acute systolic (congestive) heart failure Current Visit: No Status: Acute Code(s): I50.21 - ACUTE SYSTOLIC (CONGESTIVE) HEART FAILURE SNOMED Code(s): 684425655 Plan: Recheck CBC and CMP in the morning. Appreciate cardiology input. Anticipate discharge in the next 24 hours, if labs remain stable. Patient seen and evaluated by nurse practitioner, physician in agreement with plan.
[2025-02-13 09:16] VITALS: BP 108/71; PULSE 66; RESP 16; TEMP 97.6
--- NOTE | 2025-02-13 09:20 | P.CRDCN ---
History of Present Illness History of present illness: HISTORY OF PRESENT ILLNESS: This is a 74-year-old male with a past medical history significant for paroxysmal atrial fibrillation, hypertension, congestive heart failure, cardiomyopathy, and aortic regurgitation. Patient follows in the office with Dr. Crowe. We have been asked to see the patient in consultation for chest pain. Patient examined at the bedside. Patient presented to the hospital after having labs drawn on an outpatient basis. He was contacted and told that his potassium was 5.9 and directed to come to the ER. Patient had repeat labs drawn upon admission and potassium was found to be within normal limits at 4.7. Patient currently denies chest pain or pressure. Denies shortness of breath. Vital signs are stable. DIAGNOSTICS: - EKG reveals atrial fibrillation with controlled ventricular rate. - Chest xray correlate for CHF exacerbation - Laboratory data: WBC 3.1. Hemoglobin 15.0. Platelet count 140. Sodium 137. Potassium 4.7. BUN 30. Creatinine 1.26. Magnesium 2.3. Troponin negative x 2. proBNP 1380. - Current home cardiac medications include Eliquis 5 mg twice a day, metoprolol succinate 50 mg at night, Entresto 24-26 mg twice a day, Lasix 40 mg twice a day, Aldactone 25 mg daily, and potassium 20 mill equivalents twice a day. - Most recent echocardiogram obtained in December 2024 revealed ejection fraction 10 to 15%, moderate pulmonary hypertension, moderate to severe MR, mild to moderate AR - Cardiac catheterization history: Patient denies REVIEW OF SYSTEMS: At the time of my exam: CONSTITUTIONAL: Denies fever or chills. HEENT: Denies blurred vision, vision changes, or eye pain. Denies hemoptysis CARDIOVASCULAR: Denies chest pain. Denies orthopnea. Denies PND. Denies palpitations RESPIRATORY: Denies shortness of breath. GASTROINTESTINAL: Denies abdominal pain. Denies nausea or vomiting. HEMATOLOGIC: Denies bleeding disorders. GENITOURINARY: Denies any blood in urine. SKIN: Denies pruitis. Denies rash. PHYSICAL EXAM: VITAL SIGNS: Reviewed. GENERAL: Well-developed in no acute distress. HEENT: Head is normocephalic. Pupils are equal, round. Sclerae anicteric. Mucous membranes of the mouth are moist. Neck supple. No JVD or thyromegaly LUNGS: Respirations even and unlabored. Lungs essentially clear to auscultation bilaterally. HEART: Irregular rate and rhythm. S1 and S2 heard. ABDOMEN: Soft. Nondistended. Nontender. EXTREMITIES: Normal range of motion. No clubbing or cyanosis. Peripheral pulses intact. No lower extremity edema NEUROLOGIC: Awake and alert. Oriented x 3. ASSESSMENT: Hyperkalemia, possible hemolyzed specimen or lab error as potassium within normal limits on admission Paroxysmal atrial fibrillation Cardiomyopathy, ischemic versus nonischemic, on LifeVest Chronic heart failure with reduced EF, currently euvolemic Hypertension Moderate pulmonary hypertension Moderate to severe MR Mild to moderate AR PLAN: Resume home cardiac medications Patient is stable for discharge home today from a cardiac standpoint Patient to follow-up postdischarge with Dr. Crowe Nurse practitioner note has been reviewed by physician. Signing provider agrees with the documented findings, assessment, and plan of care documented by CYLINDER LOADER as a scribe. Past Medical History Past Medical History: Atrial Fibrillation, Cancer, Heart Failure, Hearing Disorder / Deafness, Hypertension Additional Past Medical History / Comment(s): kidney stones, basal cell skin cancer on neck and scalp, [place] LEFT EAR ALMOST CANT HEAR ANYTHING, [place] RT, irregular heart beat History of Any Multi-Drug Resistant Organisms: None Reported Past Surgical History: Hernia Repair, Orthopedic Surgery Additional Past Surgical History / Comment(s): Nephrectomy with nephrostomy 2018, left knee arthroscopy, multiple Ureteral stent placement , LEFT INGUINAL HERNIA REPAIR Past Anesthesia/Blood Transfusion Reactions: Postoperative Nausea & Vomiting (PONV) Past Psychological History: No Psychological Hx Reported Smoking Status: Former smoker Past Alcohol Use History: Occasional Additional Past Alcohol Use History / Comment(s): quit smoking 1971, smoked for 4 yrs Past Drug Use History: None Reported - Past Family History Father Family Medical History: Cancer Additional Family Medical History / Comment(s): melanoma Mother Family Medical History: Cancer Additional Family Medical History / Comment(s): colon cancer Medications and Allergies Home Medications Medication Instructions Recorded Confirmed Type Metoprolol Succinate (ER) [Toprol 50 mg PO HS@1030 12/20/24 02/12/25 History XL] Furosemide [Lasix] 40 mg PO BID@0900,1600 30 Days #60 12/26/24 02/12/25 Rx tab Apixaban [Eliquis] 5 mg PO BID@0900,1600 02/12/25 02/12/25 History Potassium Chloride ER [K-Dur 20] 20 meq PO BID@0900,1600 02/12/25 02/12/25 History Sacubitril/Valsartan [Entresto 24 1 tab PO BID@0900,1600 02/12/25 02/12/25 History mg-26 mg Tablet] Spironolactone 25 mg PO DAILY@0900 02/12/25 02/12/25 History Allergies Allergy/AdvReac Type Severity Reaction Status Date / Time hydrocodone Allergy Nausea & Verified 02/12/25 20:14 Vomiting latex Allergy Rash/Hives Verified 02/12/25 20:14 meperidine [From Demerol] Allergy Nausea & Verified 02/12/25 20:14 Vomiting Physical Exam Vitals: Vital Signs Temp Pulse Pulse Resp BP BP Pulse Ox 02/13/25 09:10 97.6 F 66 16 108/71 98 02/13/25 08:26 97.5 F L 65 17 104/63 97 02/13/25 07:00 97.5 F L 65 17 104/63 97 02/13/25 00:16 97.7 F 64 16 130/88 99 02/12/25 23:54 98.2 F 65 18 113/89 98 02/12/25 18:54 100 18 105/84 98 02/12/25 17:07 98.1 F 46 L 20 88/61 95 Intake and Output 02/12/25 02/13/25 02/13/25 22:59 06:59 14:59 Intake Total 118 Balance 118 Intake: Oral 118 Other: Voiding Method Toilet # Voids 1 Weight 76.657 kg 76.657 kg Results 02/12/25 17:26 02/12/25 17:26 Cardiac Enzymes 02/12/25 02/12/25 02/12/25 Range/Units 17:26 20:00 23:24 AST 36 (17-59) U/L Troponin I <0.012 <0.012 (0.000-0.034) ng/mL Coagulation 02/12/25 Range/Units 20:00 PT 11.0 (10.0-12.5) sec APTT 23.6 (22.0-30.0) sec CBC 02/12/25 Range/Units 17:26 WBC 3.1 L (3.8-10.6) k/uL RBC 5.04 (4.30-5.90) m/uL Hgb 15.0 (13.0-17.5) gm/dL Hct 45.5 (39.0-53.0) % Plt Count 140 L (150-450) k/uL Comprehensive Metabolic Panel 02/12/25 Range/Units 17:26 Sodium 137 (137-145) mmol/L Potassium 4.7 (3.5-5.1) mmol/L Chloride 103 (98-107) mmol/L Carbon Dioxide 27 (22-30) mmol/L BUN 30 H (9-20) mg/dL Creatinine 1.26 H (0.66-1.25) mg/dL Glucose 75 (74-99) mg/dL Calcium 8.9 (8.4-10.2) mg/dL AST 36 (17-59) U/L ALT 36 (4-49) U/L Alkaline Phosphatase 63 (38-126) U/L Total Protein 7.0 (6.3-8.2) g/dL Albumin 4.0 (3.5-5.0) g/dL Current Medications Generic Name Dose Route Start Last Admin Trade Name Freq PRN Reason Stop Dose Admin Acetaminophen 650 mg 02/12/25 21:35 Acetaminophen Tab 325 Mg Tab PO Q6HR PRN Mild Pain or Fever > 100.5 Al Hydroxide/Mg Hydroxide 15 ml 02/12/25 21:35 Mag Hydrox/Al Hydrox/Simeth 30 Ml Cup PO Q6HR PRN Indigestion Apixaban 5 mg 02/13/25 09:00 Apixaban 5 Mg Tab PO BID@0900,1600 [facility] Protocol Calcium Carbonate/Glycine 1,000 mg 02/12/25 21:35 Calcium Carbonate 500 Mg Chewable PO Q4HR PRN Dyspepsia Famotidine 20 mg 02/13/25 09:00 Famotidine 20 Mg Tab PO BID [facility] Furosemide 40 mg 02/13/25 09:00 Furosemide 40 Mg Tab PO BID@0900,1600 [facility] Metoprolol Succinate 50 mg 02/12/25 22:30 02/12/25 22:17 Metoprolol Succinate (Er) 50 Mg Tab.Er.24h PO 50 mg HS@2230 [facility] Administration Naloxone HCl 0.2 mg 02/12/25 21:35 Naloxone 0.4 Mg/Ml 1 Ml Vial IV Q2M PRN Opioid Reversal Ondansetron HCl 4 mg 02/12/25 21:35 Ondansetron 4 Mg/2 Ml Vial IVP Q8HR PRN Nausea And Vomiting Sacubitril/Valsartan 1 each 02/13/25 09:00 Sacubitril/Valsartan 24 Mg-26 Mg Tablet PO BID@0900,1600 [facility] Intake and Output 02/12/25 02/13/25 02/13/25 22:59 06:59 14:59 Intake Total 118 Balance 118 Intake: Oral 118 Other: Voiding Method Toilet # Voids 1 Weight 76.657 kg 76.657 kg 02/12/25 17:26 02/12/25 17:26
--- NOTE | 2025-02-13 09:42 | P.DS ---
Providers Date of admission: 02/12/25 21:37 Attending physician: Leonid Carrizales Consults: 02/12/25 21:35 Consult Physician Routine Consulting Provider: [facility] Consult Reason/Comments: Chest pain Do you want consulting provider notified?: Yes, Notify in am Primary care physician: Leonid Carrizales - Discharge Diagnosis(es) (1) Chest pain Current Visit: Yes Status: Acute (2) Atrial fibrillation Current Visit: No Status: Acute (3) Cardiomyopathy Current Visit: No Status: Acute (4) Dizziness Current Visit: No Status: Acute (5) Hypertension Current Visit: No Status: Acute (6) Acute systolic (congestive) heart failure Current Visit: No Status: Acute Hospital Course: This is a 74-year-old male who presented to the emergency department for evaluation of hyperkalemia per Dr. Crowe. Patient had some lab work done at the [facility] which showed a potassium of 5.9 so he was sent to the emergency department. Recheck of potassium on admisison was 4.7. Patient reports the last few days he has felt very fatigued and dizzy. He does have a history of CHF and is currently wearing a LifeVest. Patient had a recent admission for a reduced ejection fraction. Patient was taking at home spironolactone, Lasix and potassium supplement. Patient was seen and evaluated by cardiology who are recommending discharge today. They believe patient's blood sample was possibly hemolyzed and are recommending he continue his cardiac medications. Patient's GFR slightly decreased since last admission, and creatinine was 1.26. Ultrasound of the kidneys was done and was normal. Patient will be discharged home today on his current medication regimen. He is to come into our office tomorrow morning for repeat CMP. Patient seen and evaluated by nurse practitioner, physician in agreement with plan. Patient Condition at Discharge: Stable Plan - Discharge Summary New Discharge Prescriptions: Continue Metoprolol Succinate (ER) [Toprol XL] 50 mg PO HS@1030 Furosemide [Lasix] 40 mg PO BID@0900,1600 30 Days #60 tab Spironolactone 25 mg PO DAILY@0900 Sacubitril/Valsartan [Entresto 24 mg-26 mg Tablet] 1 tab PO BID@0900,1600 Apixaban [Eliquis] 5 mg PO BID@0900,1600 Potassium Chloride ER [K-Dur 20] 20 meq PO BID@0900,1600 Discharge Medication List Metoprolol Succinate (ER) [Toprol XL] 50 mg PO HS@1030 12/20/24 [History] Furosemide [Lasix] 40 mg PO BID@0900,1600 30 Days #60 tab 12/26/24 [Rx] Apixaban [Eliquis] 5 mg PO BID@0900,1600 02/12/25 [History] Potassium Chloride ER [K-Dur 20] 20 meq PO BID@0900,1600 02/12/25 [History] Sacubitril/Valsartan [Entresto 24 mg-26 mg Tablet] 1 tab PO BID@0900,1600 02/12/25 [History] Spironolactone 25 mg PO DAILY@0900 02/12/25 [History] Follow up Appointment(s)/Referral(s): Leonid Carrizales MD [Primary Care Provider] - 3 Days Activity/Diet/Wound Care/Special Instructions: Pt to come to our office tomorrow 02/14/25 for a repeat CMP Discharge Disposition: HOME SELF-CARE
[2025-02-13] MEDS: FUROSEMIDE 40 MG TAB PO SCH (09:54)
[2025-02-13] MEDS: APIXABAN 5 MG TAB PO SCH (09:54)
[2025-02-13] MEDS: FAMOTIDINE 20 MG TAB PO SCH (09:54)
[2025-02-13] MEDS: SACUBITRIL/VALSARTAN 24 MG-26 MG TABLET PO SCH (09:55)
[2025-02-13 10:43] LABS: Basophils % (A) 1 %; Eosinophils # (A) 0.1 k/uL (0-0.7); Eosinophils % (A) 4 %; HCT 45.3 % (39.0-53.0); HGB 14.5 gm/dL (13.0-17.5); Lymphocytes # (A) 0.9 k/uL (1.0-4.8); Lymphocytes % (A) 39 %; MCH 29.5 pg (25.0-35.0); MCV 92.2 fL (80.0-100.0); Mean Platelet Volume 10.3; Monocytes # (A) 0.1 k/uL (0-1.0); Monocytes % (A) 6 %; Neutrophils # (A) 1.1 k/uL (1.3-7.7); Neutrophils % (A) 48 %; Platelet Count 126 k/uL (150-450); RBC 4.92 m/uL (4.30-5.90); RDW 14.3 % (11.5-15.5); WBC 2.3 k/uL (3.8-10.6)
[2025-02-13 10:55] LABS: ALT 31 U/L (4-49); AST 29 U/L (17-59); African American GFR (CKD) 70 (>60 ml/min/1.73 sqM); Albumin 3.6 g/dL (3.5-5.0); Albumin/Globulin Ratio 1.2; Alkaline Phosphatase 60 U/L (38-126); Anion Gap 5 mmol/L; Blood Urea Nitrogen 27 mg/dL (9-20); Calcium 8.6 mg/dL (8.4-10.2); Carbon Dioxide 29 mmol/L (22-30); Chloride 104 mmol/L (98-107); Globulin 2.9 g/dL; Glucose 132 mg/dL (74-99); Non-African American GFR(CKD) 60 (>60 ml/min/1.73 sqM); Potassium 3.9 mmol/L (3.5-5.1); Sodium 138 mmol/L (137-145); Total Bilirubin 1.1 mg/dL (0.2-1.3); Total Protein 6.5 g/dL (6.3-8.2)
== END 2025-02-13 13:44 | disposition home or self-care (01) ==
LOC: EC 16:33 → 6NMEDSUR 21:37
PROVIDERS: ADMIT Family Medicine; ATTEND Family Medicine
DX: E87.5 Hyperkalemia (principal); I11.0 Hypertensive heart disease with heart failure; I50.23 Acute on chronic systolic (congestive) heart failure; I48.0 Paroxysmal atrial fibrillation; I42.9 Cardiomyopathy, unspecified; I27.20 Pulmonary hypertension, unspecified; I08.0 Rheumatic disorders of both mitral and aortic valves; Z95.811 Presence of heart assist device; Z79.01 Long term (current) use of anticoagulants; Z79.899 Other long term (current) drug therapy; Z88.5 Allergy status to narcotic agent; Z91.040 Latex allergy status; Z87.891 Personal history of nicotine dependence
CPT/HCPCS: 99285; 36415; 93005; 83880; 80053 ×2; 83735; 84484; 85025 ×2; 85610; 85730; 81003; 71046; 76770; G0378 ×2

== ENCOUNTER → 2025-04-22 | Outpatient (CLI) | payer BC, MEDICARE ==
[2025-04-22 23:14] LABS: BUN/Creat Ratio 18.14 Ratio (12.00-20.00); Blood Urea Nitrogen 25.4 mg/dL (9.0-27.0); Carbon Dioxide 25.5 mmol/L (21.6-31.8); Chloride 102 mmol/L (96-109); Glucose 80 mg/dL (70-110); Sodium 140 mmol/L (135-145)
[2025-04-22 23:22] LABS: NT-Pro-B-Type Natriuretic Pept 1097 pg/mL (0-125)
== END | disposition home or self-care (01) ==
LOC: LABWHC1 14:34
PROVIDERS: ATTEND Internal Medicine Cardiovascular Disease
DX: I50.9 Heart failure, unspecified (principal)
CPT/HCPCS: 36415; 80048; 83880